=== PATIENT | male | born 1955 | race Caucasian/White ===

== ENCOUNTER → 2019-05-26 10:02 | Outpatient (BNVA) | payer SELFPAY | PROVIDERS: Family Provider Nurse Practitioner; PCP Family Medicine; Visit Provider Family Medicine | DX: G45.9 Transient cerebral ischemic attack, unspecified (principal); N48.9 Disorder of penis, unspecified; E11.9 Type 2 diabetes mellitus without complications; I10 Essential (primary) hypertension; E78.5 Hyperlipidemia, unspecified | CPT/HCPCS: 80053; 80061; 82044; 83036; 83735; 83880; 84484; 85025; 86592; 87491; 87591; 87806 ==

== ENCOUNTER 2019-06-26 07:18 | Outpatient (CLI) | payer SELFPAY ==
--- NOTE | 2019-06-26 | CT_ITS ---
WS: [id number] CT HEAD TECHNIQUE: Noncontrast CT of the head obtained from the skullbase to the vertex. CLINICAL INFORMATION: TIA COMPARISON: None. DLP: 850.[address] scans at [facility] use at least one of these dose optimization techniques: automat ed exposure control; mA and/or kV adjustment per patient size (includes targeted exams where dose is matched to clinical indication); or iterative reconstruction. FINDINGS: No evidence of intracranial hemorrhage or mass effect. Ventricular system and basal cisterns are carvalho nt. Mild small vessel changes with mild parenchymal volume loss. No extra-axial fluid collections. No evidence of mass or mass effect. Normal ware-white differentiation. Partial opacification ethmoid air cells. Mild mucosal thickening in the frontal sinuses. CT/CT head wo con* [id number] IMPRESSION: 1. No evidence of intracranial hemorrhage or mass effect. 2. Mild small vessel changes with mild parenchymal volume loss. 3. No acute intracranial findings.
--- NOTE | 2019-06-26 08:30 | CT_ITS ---
WS: [id number] CTA HEAD AND NECK TECHNIQUE: Contrast enhanced CTA of the head and neck with coronal and sagittal reformatted images an d maximum intensity projection (MIP) images. NASCET criteria utilized. CLINICAL INFORMATION: TIA COMPARISON: None. DLP: 2627.[address] scans at [facility] use at least one of these dose optimization techniques: automat ed exposure control; mA and/or kV adjustment per patient size (includes targeted exams where dose is matched to clinical indication); or iterative reconstruction. FINDINGS: RIGHT: Right common carotid artery is patent. No significant right ICA stenosis. ICA is patent to the skull base. LEFT: Left common carotid artery is patent. No significant left ICA stenosis. Left ICA is patent to t he skull base. Hypoplastic left vertebral artery. Dominant right vertebral artery. INTRACRANIAL CTA: Basilar artery is patent. Normal vascularity to the [employer]ONDE SPECIALIST territory bilaterally. Both ICAs are patent at the skull base. Mild cavernous carotid calcification. Normal vascularity to t he PIETRO and MCA territories bilaterally. No evidence of high-grade proximal stenosis or aneurysm. Norm al visualized thyroid gland. CT/CT angio headneck* [id number] IMPRESSION: 1. No significant ICA stenosis bilaterally. Both ICAs are patent to the skull base. 2. Normal intracranial CTA. No flow-limiting stenosis or aneurysm. 3. Right dominant vertebral artery. Hypoplastic left vertebral artery. 4. No other significant findings.
[2019-06-26] MEDS: iohexol 350 mg/mL 100 mL Btl IV (09:06)
--- NOTE | 2019-06-26 09:30 | USCV_ITS ---
Leonidas Swenson Age: 64 Gender: M : 1955 Exam Date: 06/26/2019 07:38 Ordering Phys: Arslan Wilson MD Technologist: [place] [facility] [place]: TIA BP: / HR: 55 Rhythm: Sinus Technical Quality: Good MEASUREMENTS (Male / Female) Normal Values 2D ECHO LV Diastolic Diameter PLAX 4.0 cm 4.2 - 5.9 / 3.9 - 5.3 cm LV Systolic Diameter PLAX 3.3 cm LV Chamber Size 3.7 cm IVS Diastolic Thickness 1.8 cm 0.6 - 1.0 / 0.6 - 0.9 cm IVS Systolic Thickness 2.2 cm LVPW Diastolic Thickness 1.2 cm 0.6 - 1.0 / 0.6 - 0.9 cm LVPW Systolic Thickness 1.8 cm RV Chamber Size 2.9 cm LVOT Diameter 2.1 cm LV Ejection Fraction 2D Teich 40.3 % LV Ejection Fraction MOD 2C 48.3 % LV Ejection Fraction 2C AL 54.1 % LA Diameter 3.9 cm LA Width 3.5 cm LA Height 5.3 cm RA Width 3.5 cm RA Height 4.8 cm Aorta at Sinotubular Diameter 3.6 cm M-MODE LV Diastolic Diameter MM 4.8 cm 4.2 - 5.9 / 3.9 - 5.3 cm LV Systolic Diameter MM 3.5 cm LV Ejection Fraction MM Teich 54.2 % IVS Diastolic Thickness MM 1.5 cm 0.6 - 1.0 / 0.6 - 0.9 cm IVS Systolic Thickness MM 2.2 cm LVPW Diastolic Thickness MM 1.6 cm 0.6 - 1.0 / 0.6 - 0.9 cm LVPW Systolic Thickness MM 2.5 cm RV Diastolic Diameter MM 3.0 cm Aortic Annulus Diameter 3.9 cm LA Ao Ratio MM 1.0 MV E Point Septal Separation 0.5 cm DOPPLER AV Peak Velocity 125.0 cm/s LVOT Peak Velocity 95.0 cm/s AV Area Cont Eq vti 2.7 cm squared AV Area Cont Eq pk 2.6 cm squared MV Area PHT 4.3 cm squared Mitral E to A Ratio 0.8 MV E' Velocity 8.0 cm/s Mitral E to MV E' Ratio 10.0 Mitral E to LV E' Lateral Ratio 9.9 Mitral E to LV E' Septal Ratio 10.1 TR Peak Velocity 230.6 cm/s TR Peak Gradient 21.3 mmHg TR Mean Velocity 159.8 cm/s TR Mean Gradient 11.7 mmHg TR Velocity Time Integral 83.2 cm Right Atrial Pressure 3.0 mmHg Pulmonary Artery Systolic Pressu 24.3 mmHg PV Peak Velocity 82.0 cm/s RV Acceleration Time 0.1 s RV Ejection Time 0.4 s RV AcT/ET 0.4 FINDINGS Left Ventricle Normal left ventricular size and systolic function, EF 56 %. Mild left ventricular hypertrophy. No regional wall motion abnormalities. Grade I/IV diastolic dysfunction (abnormal relaxation filling pattern), normal to mildly elevated filling pressures. Right Ventricle Normal right ventricular size and systolic function. Right Atrium The right atrium is normal in size. Left Atrium Mildly dilated left atrium Mitral Valve Structurally normal mitral valve without significant stenosis or prolapse. There is no mitral regurgitation. Aortic Valve Minimally thickened Tricuspid Valve Trace tricuspid valve regurgitation. Pulmonic Valve No gross abnormalities noted Pericardium No significant pericardial effusion Aorta Normal aortic annulus size. CONCLUSIONS Normal left ventricular size and systolic function, EF 56 %. Mild left ventricular hypertrophy. No regional wall motion abnormalities. Grade I/IV diastolic dysfunction (abnormal relaxation filling pattern), normal to mildly elevated filling pressures. Mildly dilated left atrium Trace tricuspid valve regurgitation. There is no significant pericardial effusion. There are no intracardiac masses. There are no prior echocardiogram studies to compare. Dr Debbi Salter MD FAC (Electronically Signed) Final Date: 26 June 2019 12:53 S
--- NOTE | 2019-06-26 10:15 | USCV_ITS ---
Leonidas Swenson Age: 64 Gender: M : 1955 Exam Date: 06/26/2019 07:57 Ordering Phys: Arslan Wilson MD Technologist: Tati Beckman Exam Location: [facility] – [place] Indication: TIA Risk Factors: Previous Vascular Surgery: Right Brachial BP: / Left Brachial BP: / Right Left Velocity (cm/s) Spectral Plaque Velocity (cm/s) Spectral Plaque Syst/Diast Broadening Syst/Diast Broadening 109.20/9.90 Prox CCA 119.80/ 21.40 47.50/ 13.90 Mid CCA 48.50 / 14.20 42.20/ 10.70 Distal CCA 37.80 / 10.30 Homo 46.90/ 11.70 Prox ICA 53.10 / 17.30 Homo 42.50/ 13.60 Mid ICA 80.90 / 28.60 49.00/ 15.90 Distal ICA 77.00 / 25.40 101.40 ECA 51.40 1.03 ICA/CCA 1.67 Antegrade Vertebral Antegrade 40.70/ 15.20 cm/s 77.80/ 21.40 cm/s Tri Subclavian Tri 101.2 105.5 0 0 FINDINGS Mild diffuse plaques bilaterally at the bifurcations and proximal internal carotid arteries Intimal thickening in the common carotid arteries bilaterally. Antegrade flow in the vertebral arteries bilaterally. Normal Doppler flow velocities CONCLUSIONS Mild diffuse plaques bilaterally at the bifurcations and proximal internal carotid arteries Intimal thickening in the common carotid arteries bilaterally. No significant stenosis in the extracranial arteries, based on the above findings Dr Debbi Salter MD [facility] (Electronically Signed) Final Date: 26 June 2019 19:33 S
== END 2019-06-26 07:19 | disposition home or self-care (01) ==
LOC: RAD 07:20
PROVIDERS: Family Provider Nurse Practitioner; PCP Family Medicine; Visit Provider Family Medicine
DX: G45.9 Transient cerebral ischemic attack, unspecified (principal); Q27.8 Other specified congenital malformations of peripheral vascular system
CPT/HCPCS: 70450; 70496; 70498; 93306; 93880

== ENCOUNTER 2019-07-25 10:51 | Emergency (ER) | payer SELFPAY ==
--- NOTE | 2019-07-25 10:54 | W.ED.ABDPA2 ---
HPI - Abdominal Pain General: Chief Complaint: Abdominal Pain Stated Complaint: ABD PAIN Time Seen by Provider: 07/25/19 10:53 Source: patient Mode of arrival: ambulatory Limitations: no limitations History of Present Illness: HPI narrative: Patient is a 64-year-old male who presents to ED today with a complaint of right lower abdominal pain over the past 3 days. Patient tells me he believes it might be related to his diabetic medications. He states these medications often make him alternate between episodes of diarrhea and constipation. He does state bowel movements have been fairly normal for him as of recently. He is not having any urinary symptoms. No nausea or vomiting. He has not been running fevers. He complains of some back pain over the past 6 weeks without injury or trauma. He denies any worsening or alleviating factors to his discomfort. States he is able to eat and drink without difficulty. MD elicited complaint: abdominal pain Onset (ago): day(s) Pain Consistency: constant (seems to be worse in the mornings) Location: RLQ Radiation: none Migration to: no migration Exacerbating factors: nothing Relieving factors: nothing Associated Symptoms: Reports constipation and diarrhea; Denies change in stool character, chills, coffee ground emesis, dysuria, fever(s), heartburn, hematochezia, hematemesis, melena, nausea, syncope and vomiting Review of Systems General: Reports: 10 or more systems reviewed and unremarkable except in HPI and below Const: Denies: fever(s), chills, body aches, change in appetite, change in weight, fatigue or malaise Eyes: Denies: change in vision, blurry vision or photophobia ENMT: Denies: throat pain, enlarged tonsils or odynophagia Card: Denies: chest pain, palpitations, irregular heart rhythm, edema, swelling of feet/ankles, lightheadedness, syncope, pre-syncope, dyspnea on exertion, orthopnea or leg pain with exertion Resp: Denies: dyspnea, productive cough, pain on inspiration, hemoptysis or chest congestion GI: Reports: abdominal pain, diarrhea and constipation; Denies: nausea, vomiting, hematemesis, coffee ground emesis, heartburn, early satiety, rectal swelling, change in stool character, hematochezia, melena, white/light colored stool or steatorrhea : Denies: flank pain, difficulty urinating, dysuria, urinary frequency or urinary urgency Musc: Reports: back pain; Denies: neck pain, extremity pain, extremity swelling, joint pain, joint swelling, joint redness or joint warmth Skin/Breast: Denies: rash Neuro: Denies: headache(s), numbness in extremities, weakness in extremities or sensory changes PFS ED PFSH: Social History (Updated 05/26/19 @ 08:46 by Monalisa Chu LPN) Smoking and tobacco status: never smoked Alcohol intake: never Physical Exam Const: COMMON NORMALS: no acute distress, patient oriented x3, no limitations and alert HENMT: COMMON NORMALS: normocephalic and atraumatic HEAD & SCALP: normocephalic and atraumatic Neck/C-Spine: COMMON NORMALS: full ROM and no lymphadenopathy GENERAL: No anterior neck swelling CERVICAL SPINE: Yes cervical ROM normal, No pain with cervical ROM, No Cervical spine tenderness and No Paracervical muscle tenderness Chest: COMMONS NORMALS: normal inspection of the chest and normal palpation of entire chest wall Resp: COMMON NORMALS: normal respiratory effort and clear to auscultation bilaterally AUSCULTATION: clear to auscultation bilaterally Cardio: COMMON NORMALS: regular rate and regular rhythm RATE: regular rate RHYTHM: regular rhythm GI: COMMON NORMALS: Normal to inspection, nondistended, normoactive bowel sounds present, Soft to palpation, No hepatosplenomegaly present and no masses PALPATION: Yes Soft to palpation, Yes Tenderness to palpation present (GI) (mild RLQ) and Yes No hepatosplenomegaly present : COMMON NORMALS: Yes no CVA tenderness BLADDER/KIDNEY EXAM: Yes no CVA tenderness Back/Pelvis: COMMON NORMALS: no CVA tenderness, thoracic and lumbar spine normal to inspection, no thoracic nor lumbar tenderness, thoraco-lumbar ROM normal and straight leg raise negative bilaterally Extremity: COMMON NORMALS: normal to inspection and full ROM GENERAL: Yes normal exam except as noted Neuro: COMMON NORMALS: patient oriented x3 SENSORIUM/ORIENTATION: Yes alert Skin: COMMON NORMALS: no rashes or lesions noted GENERAL SKIN EXAM: no rashes or lesions noted Course Vital Signs: Vital signs: Vital Signs Temperature 98.1 F 07/25/19 10:55 Pulse Rate 57 L 07/25/19 14:49 Respiratory Rate 20 H 07/25/19 14:49 Blood Pressure 132/90 07/25/19 14:49 Pulse Oximetry 100 07/25/19 14:49 MDM - Abdominal Pain MDM Narrative: Medical decision making narrative: Patient with abnormality to his pancreas on his CT scan. Patient will need further follow-up for this with an MRI or triphasic CT scan to rule out malignancy. Patient was made aware of findings and case management will be involved to get patient prompt follow-up with his PCP. Return to ED precautions given. Lab Data: Labs: Lab Results 07/25/19 07/25/19 07/25/19 Range/Units 11:12 11:12 12:05 WBC 3.8 L (4.0-10.0) 10^3/ uL RBC 4.91 (4.1-5.3) 10^6/u L Hgb 14.5 (11.7-16.6) g/dL Hct 43.3 (42.0-52.0) % MCV 88.2 (80-94) fL MCH 29.5 (28.0-34.0) pg MCHC 33.5 (30.0-36.0) g/dL RDW 11.7 L (12.1-15.1) % Plt Count 181 (130-400) 10^3/c mm MPV 9.8 (7.4-10.4) fL Neut % (Auto) 60.9 % Lymph % (Auto) 21.7 % [place] % (Auto) 7.6 % Eos % (Auto) 7.9 % Baso % (Auto) 1.6 % Neut # (Auto) 2.3 (1.8-7.7) 10^3/u L Lymph # (Auto) 0.8 (0.8-4.8) 10^3/u L [place] # (Auto) 0.3 (0.2-0.9) 10^3/u L Eos # (Auto) 0.3 (0.0-0.8) 10^3/u L Baso # (Auto) 0.1 (0.0-0.1) 10^3/u L Nucleated RBC % (a uto) 0 % Nucleated RBCs # 0.0 /100WBC Sodium 140 (136-145) mmol/L Potassium 4.1 (3.5-5.1) mmol/L Chloride 102 (98-107) mmol/L Carbon Dioxide 26 (22-29) mmol/L Anion Gap 16.1 (5-19) BUN 8 (8-23) mg/dL Creatinine 1.0 (0.7-1.2) mg/dL GFR Calculation 75.5 L (90-130) mL/min Glucose 192 H (65-115) mg/dL Calculated Osmolal ity 291 (285-295) mOsm/k g Calcium 10.7 H (8.5-10.5) mg/dL Total Bilirubin 0.5 (0.15-1.2) mg/dL AST 21 (0-40) U/L ALT 38 (0-41) U/L Alkaline Phosphata se 83 (40-130) IU/L Total Protein 8.0 (6.6-8.7) g/dL Albumin 4.6 (3.5-5.2) g/dL Globulin 3.4 (1.3-4.6) g/dL Lipase 18 (13-60) U/L Urine Color Yellow (Yellow) Urine Appearance Clear (CLEAR) Urine pH 5 (5-7) Ur Specific Gravit y 1.020 (1.005-1.030) Urine Protein Neg (Negative) Urine Glucose (UA) Norm (Normal) Urine Ketones Negative (Negative) Urine Blood Neg (Negative) Urine Nitrate Negative (Negative) Urine Bilirubin Neg (NEGATIVE) Urine Urobilinogen Norm (Negative) mg/dL Ur Leukocyte Pina ase Negative (Negative) Imaging Data ^: CT Abd/Pel: Radiologist's impression: [place] [address] CT Scan Report Signed with Addenda Patient: Leonidas Swenson Unit #: [id number] : 1955 Age/Sex: 64 / M ADM Date: 07/25/19 Loc: ER Room/Bed: Attending Dr: Ordering Provider/Ordering MD: Zaina Watkins Date of Service: 07/25/19 Procedure(s): CT abdomen pelvis w con* [id number] Accession Number(s): [id number] Report Number: [id number]/CT abdomen pelvis w con* [id number] Addendum created at 2:[address] findings discussed with [employer] Zaina Watkins via phone conference at 1:38 p.m.. Findings were understood and acknowledged. Radiation Dose CTDIVOL = (mGy): DLP = 1759.1 (mGy-cm) Addendum Dictated By: Luis Felipe Mathews MD Addendum Signed By: Luis Felipe Mathews MD Signed Date/Time: 1433 Addendum Cosigned By: PROCEDURE INFORMATION: Exam: CT Abdomen And Pelvis With Contrast Exam date and time: 07/25/2019 12:17 PM Age: 64 years old Clinical indication: Abdominal pain; Flank; Right lower quadrant (rlq); Prior surgery; Surgery type: Hernia; Additional info: Rlq pain/back pain TECHNIQUE: Imaging protocol: Computed tomography of the abdomen and pelvis with intravenous contrast. Radiation optimization: All CT scans at this facility use at least one of these dose optimization techniques: automated exposure control; mA and/or kV adjustment per patient size (includes targeted exams where dose is matched to clinical indication); or iterative reconstruction. Contrast material: OMNI; Contrast volume: 95 ml; Contrast route: IV; COMPARISON: No relevant prior studies available. RADIATION DOSE METRICS: Total DLP: 1759.1 mGy-cm FINDINGS: Liver: Small 5 mm rounded low-density area superior aspect of left hepatic lobe, possible small cyst. 7 mm hypodense area periphery of right hepatic lobe, too small to characterize. Gallbladder and bile ducts: Normal. No calcified stones. No ductal dilation. Pancreas: Pancreatic tail either absent or very atrophic and clinical correlation is requested. Pancreatic body mildly hypodense, nonspecific. Appearance nonspecific and could be due to chronic scarring versus subtle infiltrating tumor. Spleen: Normal. No splenomegaly. Adrenals: Normal. No mass. Kidneys and ureters: Normal. No hydronephrosis. Stomach and bowel: Unremarkable. No obstruction. No mucosal thickening. Appendix: No evidence of appendicitis. Intraperitoneal space: Unremarkable. No free air. No significant fluid collection. 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 Lymph nodes: Prominent 2 x 1.4 cm peripancreatic lymph node as well as prominent retroperitoneal para-aortic lymph nodes (series 2, axial image 23 and 35). Bladder: 4 cm left-sided bladder diverticulum. Reproductive: Mildly enlarged prostate. Bones/joints: L5-S1 degenerative disc disease, chronic. Soft tissues: 2 cm uncomplicated fat containing left inguinal hernia. Soft tissue density right inguinal region, possible postoperative scarring. CT/CT abdomen pelvis w con* [id number] IMPRESSION: 1.) Pancreatic tail either absent or very atrophic and clinical correlation is requested. Pancreatic body mildly hypodense, nonspecific. Appearance nonspecific and could be due to chronic scarring versus subtle infiltrating tumor. 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 Dedicated triphasic CT of pancreas or pancreatic MRI could further evaluate as clinically indicated. 2.) Prominent lymph nodes as described above. 3.) 4 cm left-sided bladder diverticulum. Fat containing left inguinal hernia. Radiation Dose CTDIVOL = (mGy): DLP = 1759.1 (mGy-cm) Dictated By: Luis Felipe Mathews MD Signed By: Luis Felipe Mathews MD Signed Date/Time: 07/25/191431 DD/ 143 Discharge Plan Discharge Patient Disposition: Home, Self-Care Clinical Impression: Pancreatic abnormality Abdominal pain Qualifiers: Abdominal location: right lower quadrant Qualified Code(s): R10.31 - Right lower quadrant pain Back pain Qualifiers: Back pain location: thoracic back pain Chronicity: acute Back pain laterality: bilateral Qualified Code(s): M54.6 - Pain in thoracic spine Condition: Stable Prescriptions: New hydrocodone-acetaminophen 5-325 mg tablet 1 tab PO Q6H PRN (Reason: pain) Qty: 14 RF: 0 No Action omega-3 fatty acids 1,000 mg capsule 1,000 mg PO DAILY RF: 0 Hold Instructions: Cannot Afford Medication Complete Multivitamin Tablet 1 tab PO DAILY RF: 0 Hold Instructions: Cannot Afford Medication sildenafil 25 mg tablet 20 mg PO DAILY PRN (Reason: Sexual Activity) RF: 0 metformin 1,000 mg tablet 1,000 mg PO BID 90 Days Qty: 180 RF: 0 aspirin 81 mg tablet,delayed release (DR/EC) 81 mg PO DAILY 90 Days Qty: 90 RF: 0 atorvastatin 80 mg tablet 80 mg PO DAILY 90 Days Qty: 90 RF: 0 lisinopril 5 mg tablet 5 mg PO DAILY 90 Days Qty: 90 RF: 0 glipizide 5 mg tablet extended release 24hr 5 mg PO DAILY 90 Days Qty: 90 RF: 0 Discharge Orders: Discharge Order (Routine); Ordered 07/25/19 Ordered By: Zaina Watkins Patient Instructions: Abdominal Pain (ED) Activity Restrictions/Additional Instructions: As discussed on your CT scan the radiologist found some abnormalities regarding your pancreas. I am going to have case management get a hold of you early next week to set you up with an appointment with primary care so that they may order an MRI or a triphasic CT of your pancreas for further evaluation. You may return to the emergency department over the weekend for any other concerns you may have or worsening symptoms. Discharge Date/Time: 07/25/19 14:52 Coding Level of Care Code ED [employer] Exam Comprehensive
[2019-07-25 10:55] VITALS: BP 146/83; PULSE 68; RESP 16; TEMP 36.7; O2SAT 98; BMI 30.4
--- NOTE | 2019-07-25 11:07 | CTR_ITS ---
PROCEDURE INFORMATION: Exam: CT Abdomen And Pelvis With Contrast Exam date and time: 07/25/2019 12:17 PM Age: 64 years old Clinical indication: Abdominal pain; Flank; Right lower quadrant (rlq); Prior surgery; Surgery type: Hernia; Additional info: Rlq pain/back pain TECHNIQUE: Imaging protocol: Computed tomography of the abdomen and pelvis with intravenous contrast. Radiation optimization: All CT scans at this facility use at least one of these dose optimization techniques: automated exposure control; mA and/or kV adjustment per patient size (includes targeted exams where dose is matched to clinical indication); or iterative reconstruction. Contrast material: OMNI; Contrast volume: 95 ml; Contrast route: IV; COMPARISON: No relevant prior studies available. RADIATION DOSE METRICS: Total DLP: 1759.1 mGy-cm FINDINGS: Liver: Small 5 mm rounded low-density area superior aspect of left hepatic lobe, possible small cyst. 7 mm hypodense area periphery of right hepatic lobe, too small to characterize. Gallbladder and bile ducts: Normal. No calcified stones. No ductal dilation. Pancreas: Pancreatic tail either absent or very atrophic and clinical correlation is requested. Pancreatic body mildly hypodense, nonspecific. Appearance nonspecific and could be due to chronic scarring versus subtle infiltrating tumor. Spleen: Normal. No splenomegaly. Adrenals: Normal. No mass. Kidneys and ureters: Normal. No hydronephrosis. Stomach and bowel: Unremarkable. No obstruction. No mucosal thickening. Appendix: No evidence of appendicitis. Intraperitoneal space: Unremarkable. No free air. No significant fluid collection. 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 Lymph nodes: Prominent 2 x 1.4 cm peripancreatic lymph node as well as prominent retroperitoneal para-aortic lymph nodes (series 2, axial image 23 and 35). Bladder: 4 cm left-sided bladder diverticulum. Reproductive: Mildly enlarged prostate. Bones/joints: L5-S1 degenerative disc disease, chronic. Soft tissues: 2 cm uncomplicated fat containing left inguinal hernia. Soft tissue density right inguinal region, possible postoperative scarring. CT/CT abdomen pelvis w con* [id number] IMPRESSION: 1.) Pancreatic tail either absent or very atrophic and clinical correlation is requested. Pancreatic body mildly hypodense, nonspecific. Appearance nonspecific and could be due to chronic scarring versus subtle infiltrating tumor. 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 Dedicated triphasic CT of pancreas or pancreatic MRI could further evaluate as clinically indicated. 2.) Prominent lymph nodes as described above. 3.) 4 cm left-sided bladder diverticulum. Fat containing left inguinal hernia. Radiation Dose CTDIVOL = (mGy): DLP = 1759.1 (mGy-cm)
[2019-07-25 11:18] LABS: Basophils # 0.1 10^3/uL (0.0-0.1); Basophils % 1.6 %; Eosinophils # 0.3 10^3/uL (0.0-0.8); Eosinophils % 7.9 %; Hematocrit 43.3 % (42.0-52.0); Hemoglobin 14.5 g/dL (11.7-16.6); Lymphocytes # 0.8 10^3/uL (0.8-4.8); Lymphocytes % 21.7 %; Mean Corpuscular HGB Conc 33.5 g/dL (30.0-36.0); Mean Corpuscular Hemoglobin 29.5 pg (28.0-34.0); Mean Corpuscular Volume 88.2 fL (80-94); Mean Platelet Volume 9.8 fL (7.4-10.4); Monocytes # 0.3 10^3/uL (0.2-0.9); Monocytes % 7.6 %; Neutrophils # 2.3 10^3/uL (1.8-7.7); Neutrophils % 60.9 %; Nucleated Red Blood Cells % 0 %; Platelet Count 181 10^3/cmm (130-400); Red Blood Count 4.91 10^6/uL (4.1-5.3); Red Cell Distribution Width 11.7 % (12.1-15.1); White Blood Count 3.8 10^3/uL (4.0-10.0)
[2019-07-25 11:45] LABS: Alanine Aminotransferase 38 U/L (0-41); Albumin Level 4.6 g/dL (3.5-5.2); Alkaline Phosphatase 83 IU/L (40-130); Anion Gap 16.1 (5-19); Aspartate Amino Transferase 21 U/L (0-40); Blood Urea Nitrogen 8 mg/dL (8-23); Calcium 10.7 mg/dL (8.5-10.5); Carbon Dioxide 26 mmol/L (22-29); Chloride 102 mmol/L (98-107); Globulin 3.4 g/dL (1.3-4.6); Glomerular Filtration Rate 75.5 mL/min (90-130); Glucose 192 mg/dL (65-115); Lipase 18 U/L (13-60); Osmolality Calculated 291 mOsm/kg (285-295); Potassium 4.1 mmol/L (3.5-5.1); Sodium 140 mmol/L (136-145); Total Bilirubin 0.5 mg/dL (0.15-1.2)
[2019-07-25 12:11] LABS: Add Urine Microscopic? NO
[2019-07-25 12:15] LABS: Bilirubin Urine Neg (NEGATIVE); Blood Urine Neg (Negative); Glucose Urine UA Norm (Normal); Ketones Urine Negative (Negative); Leukocyte Esterase Urine Negative (Negative); Nitrate Urine Negative (Negative); Protein Urine Neg (Negative); Urine Appearance Clear (CLEAR); Urine Color Yellow (Yellow); Urobilinogen Urine Norm (Negative); pH Urine 5 (5-7)
[2019-07-25] MEDS: iohexol 300 mg/mL 100 mL Btl IV (12:32)
[2019-07-25 14:49] VITALS: BP 132/90; PULSE 57; RESP 20; O2SAT 100
--- NOTE | 2019-07-28 13:50 | DCPLANNER ---
airborne weapons technical manager had message to speak with patient about getting established with a primary care physician. airborne weapons technical manager spoke with patient, he stated that he has seen Dr. Wilson in the past. airborne weapons technical manager [place] [facility] [place] Archana, was told that Dr. Wilson had been furloughed from the clinic, and were being referred to Dr. Medina. airborne weapons technical manager called patient, informed patient of this, wrapper caser offered to schedule a follow up appointment for patient with Dr. Medina, but patient stated that he would see if Dr. Beck would accept him as a patient. airborne weapons technical manager told patient that he would need to go [facility] and fill out the paperwork to see if Dr. Beck would accept patient or not. Patient stated that when he got back into town he would go by the clinic.
== END 2019-07-25 14:52 | disposition home or self-care (01) ==
PROVIDERS: Emergency Provider Physician Assistant
DX: K86.89 Other specified diseases of pancreas (principal); R10.31 Right lower quadrant pain; M54.6 Pain in thoracic spine; Z79.82 Long term (current) use of aspirin; Z79.84 Long term (current) use of oral hypoglycemic drugs
CPT/HCPCS: 12345; 74177; 80053; 81003; 83690; 85025; 99282; 99283; Q9967

== ENCOUNTER 2019-08-06 08:51 | Emergency (ER) | payer MEDICAID, SELFPAY ==
[2019-08-06 08:53] VITALS: BMI 30.3
[2019-08-06 08:58] VITALS: BP 165/93; PULSE 59; RESP 16; TEMP 36.7; O2SAT 98
--- NOTE | 2019-08-06 08:58 | ED_ITS ---
HPI - Abdominal Pain General: Chief Complaint: Abdominal Pain Stated Complaint: ABD PAIN Time Seen by Provider: 08/06/19 08:58 Source: patient Mode of arrival: ambulatory Limitations: no limitations History of Present Illness: HPI narrative: Patient comes in today for complaints of abdominal pain and back pain. Patient states for the last 2 months he has had back pain. Patient now for the last 2 weeks has had increasing abdominal pain. Patient is finding it harder and harder to work due to his pain and discomfort. Patient appears well. Patient appears in mild to no pain at rest. Patient states that he has relief from his back pain when he is lying flat on the floor. Patient is concerned about pancreatic cancer and finding relief for his pain. Review of Systems General: Reports: 10 or more systems reviewed and unremarkable except in HPI and below GI: Reports: abdominal pain Musc: Reports: back pain PFS ED PFSH: Medical History (Updated 08/06/19 @ 14:09 by JOSHUA Abrams) History of inguinal hernia Surgical History (Updated 08/04/19 @ 14:58 by Glo Medina DO) History of inguinal hernia repair History of vasectomy Social History Smoking and tobacco status: never smoked Alcohol intake: current Alcohol intake frequency: holidays/special occasions only Physical Exam Const: COMMON NORMALS: no acute distress and patient oriented x3 GENERAL APPEARANCE: cooperative HENMT: COMMON NORMALS: normocephalic and Normal external nose present HEAD & SCALP: normal to inspection and normocephalic NOSE: Normal external nose present MOUTH: Normal oral and palatal mucosa present THROAT: posterior oropharynx normal Eye: GENERAL EYE: appearance normal, both eyes and all related structures Neck/C-Spine: COMMON NORMALS: full ROM Lymph: LYMPHATIC: no lymphadenopathy noted Chest: COMMONS NORMALS: normal inspection of the chest Resp: COMMON NORMALS: normal respiratory effort EFFORT & INSPECTION: Yes able to speak in complete sentences Cardio: COMMON NORMALS: regular rate and regular rhythm RATE: regular rate RHYTHM: regular rhythm GI: COMMON NORMALS: Soft to palpation AUSCULTATION: Yes normoactive bowel sounds PALPATION: Yes Soft to palpation, Yes Tenderness to palpation present (GI) and No Guarding due to palpation present (GI) : COMMON NORMALS: Yes no CVA tenderness BLADDER/KIDNEY EXAM: Yes no CVA tenderness Back/Pelvis: COMMON NORMALS: no CVA tenderness THORACIC SPINE/UPPER BACK: Yes paraspinal muscle tenderness LUMBAR SPINE/LOWER BACK: Yes paraspinal muscle tenderness Extremity: COMMON NORMALS: normal to inspection Neuro: COMMON NORMALS: patient oriented x3 and moves all extremities Psych: COMMON NORMALS: mental status grossly normal and cooperative Skin: COMMON NORMALS: no rashes or lesions noted GENERAL SKIN EXAM: no rashes or lesions noted Course Vital Signs: Vital signs: Vital Signs Temperature 98.0 F 08/06/19 08:58 Pulse Rate 59 L 08/06/19 08:58 Respiratory Rate 16 08/06/19 08:58 Blood Pressure 165/93 08/06/19 08:58 Pulse Oximetry 98 08/06/19 08:58 MDM - Abdominal Pain MDM Narrative: Medical decision making narrative: Patient comes in today for complaints of abdominal pain and back pain. Patient was seen by Dr. Medina yesterday and was given diclofenac and baclofen for his back pain. At that time patient was unable to get MRI ordered due to inability to pay for imaging services. Patient went to Medicare Medicaid for assistance but states that he was unable to get any help due to offices being closed. Patient reports that his pain seems worse and he does not know what to do. On exam patient appears in mild pain. Respirations are even lungs are clear to auscultation. Patient has some mild generalized abdominal tenderness. Bowel sounds are present throughout. Skin is warm and dry. Differential diagnosis includes gastroesophageal reflux disease, peptic ulcer disease, pancreatitis, pancreatic cancer, diverticulitis, intervertebral disc disease, facet arthropathy. Laboratory values were insignificant and definitely unchanged from previous exam a week ago. Ordered MRI MRCP, it showed no pancreatic tumor and abnormality appears to be chronic scarring versus a normal variant. Reviewed exam with patient recommended better glucose control, discussed medications to use for back pain. Also discussed his gastric varices and monitoring for GI bleeding. Recommended a trial of Reglan to see if that would help with his abdominal pain which I think may be due to gastroparesis due to diabetes. Patient was agreeing to try the prescription with recommendations for follow-up with primary care. Patient also understands return to the ER for worsening signs and symptoms. Lab Data: Labs: Lab Results 08/06/19 08/06/19 Range/Units 09:44 09:44 WBC 4.6 (4.0-10.0) 10^3/ uL RBC 4.81 (4.1-5.3) 10^6/u L Hgb 14.0 (11.7-16.6) g/dL Hct 42.8 (42.0-52.0) % MCV 89.0 (80-94) fL MCH 29.1 (28.0-34.0) pg MCHC 32.7 (30.0-36.0) g/dL RDW 11.9 L (12.1-15.1) % Plt Count 186 (130-400) 10^3/c mm MPV 9.6 (7.4-10.4) fL Neut % (Auto) 68.9 % Lymph % (Auto) 17.7 % [place] % (Auto) 6.9 % Eos % (Auto) 5.4 % Baso % (Auto) 1.1 % Neut # (Auto) 3.2 (1.8-7.7) 10^3/u L Lymph # (Auto) 0.8 (0.8-4.8) 10^3/u L [place] # (Auto) 0.3 (0.2-0.9) 10^3/u L Eos # (Auto) 0.3 (0.0-0.8) 10^3/u L Baso # (Auto) 0.1 (0.0-0.1) 10^3/u L Nucleated RBC % (a uto) 0 % Nucleated RBCs # 0.0 /100WBC Sodium 140 (136-145) mmol/L Potassium 4.3 (3.5-5.1) mmol/L Chloride 102 (98-107) mmol/L Carbon Dioxide 27 (22-29) mmol/L Anion Gap 15.3 (5-19) BUN 17 (8-23) mg/dL Creatinine 1.0 (0.7-1.2) mg/dL GFR Calculation 75.5 L (90-130) mL/min Glucose 176 H (65-115) mg/dL Calculated Osmolal ity 291 (285-295) mOsm/k g Calcium 10.1 (8.5-10.5) mg/dL Total Bilirubin 0.6 (0.15-1.2) mg/dL AST 15 (0-40) U/L ALT 25 (0-41) U/L Alkaline Phosphata se 82 (40-130) IU/L Total Protein 7.4 (6.6-8.7) g/dL Albumin 4.6 (3.5-5.2) g/dL Globulin 2.8 (1.3-4.6) g/dL Lipase 19 (13-60) U/L Discharge Plan Discharge Patient Disposition: Home, Self-Care Clinical Impression: Gastric varices without bleeding, Diabetic gastroparesis, Degeneration, intervertebral disc, lumbar Abdominal pain Qualifiers: Abdominal location: generalized Qualified Code(s): R10.84 - Generalized abdominal pain Condition: Stable Prescriptions: New metoclopramide HCl 10 mg tablet 10 mg PO BID Qty: 60 RF: 0 No Action sildenafil 25 mg tablet 20 mg PO PRN PRN (Reason: Sexual Activity) RF: 0 aspirin 81 mg tablet,delayed release (DR/EC) 81 mg PO DAILY 90 Days Qty: 90 RF: 0 atorvastatin 80 mg tablet 80 mg PO DAILY 90 Days Qty: 90 RF: 0 lisinopril 5 mg tablet 5 mg PO DAILY 90 Days Qty: 90 RF: 0 Januvia 100 mg tablet 100 mg PO DAILY Qty: 30 RF: 0 glipizide 5 mg tablet extended release 24hr 5 mg PO DAILY 90 Days Qty: 90 RF: 0 metformin 1,000 mg tablet 1,000 mg PO BID 90 Days Qty: 180 RF: 0 diclofenac sodium 75 mg tablet,delayed release (DR/EC) 75 mg PO BID Qty: 60 RF: 0 Multiple Vitamins Tablet 1 tab PO DAILY RF: 0 Cinnamon 500 mg Capsule 500 mg PO DAILY RF: 0 Fish Oil 1 cap PO DAILY RF: 0 baclofen 10 mg tablet 10 mg PO BEDTIME RF: 0 Discharge Orders: Discharge Order (Routine); Ordered 08/06/19 Ordered By: Ever Gillespie Referrals: Glo Medina DO [Primary Care Provider] - Discharge Diet: Advance as tolerated Discharge Activity: Increase activity as tolerated Patient Instructions: Abdominal Pain (ED) Activity Restrictions/Additional Instructions: Healthy diet. Drink plenty of water. Monitor the amount of carbohydrates you consume daily. Try not to eat more than 150 g of carbohydrates a day. Take medications as directed. Use acetaminophen for further pain relief. Follow-up with primary care in 2 weeks as needed. Return to the ER for worsening symptoms, blood in stool or vomit, or high fever. 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
--- NOTE | 2019-08-06 09:08 | XR_ITS ---
WS: [id number] XR lumbar spine 2-3V* [id number] REASON FOR EXAM: back pain FINDINGS: The sacroiliac joints were normal. The lamina, pedicles, spinous processes are all normal as well as the transverse processes. There is settling of the disc space L5-S1 with spurring posteriorly. This suggests low-grade spinal s tenosis. There is degenerate spurring off the anterior vertebral bodies L2-L4. XR/XR lumbar spine 2-3V* [id number] IMPRESSION: Degenerated disc changes L5-S1 Suspect low-grade spinal stenosis L5-S1 There is mild osteoarthritic changes.
--- NOTE | 2019-08-06 09:08 | XR_ITS ---
WS: [id number] XR thoracic spine 3V* [id number] REASON FOR EXAM: pain FINDINGS: The lamina, pedicle, spinous processes are normal. A mild scoliotic curve convex to the right. There is degenerate spurring in the mid thoracic area. There is no definite compression fractures or displacements noted. XR/XR thoracic spine 3V* [id number] IMPRESSION: Scoliotic curve convex to the right Mild osteoarthritic changes
[2019-08-06] MEDS: TRAMadol 50 mg Tablet 100 MG PO (09:40)
[2019-08-06 09:53] LABS: Basophils # 0.1 10^3/uL (0.0-0.1); Basophils % 1.1 %; Eosinophils # 0.3 10^3/uL (0.0-0.8); Eosinophils % 5.4 %; Hematocrit 42.8 % (42.0-52.0); Lymphocytes # 0.8 10^3/uL (0.8-4.8); Lymphocytes % 17.7 %; Mean Corpuscular HGB Conc 32.7 g/dL (30.0-36.0); Mean Corpuscular Hemoglobin 29.1 pg (28.0-34.0); Mean Platelet Volume 9.6 fL (7.4-10.4); Monocytes # 0.3 10^3/uL (0.2-0.9); Monocytes % 6.9 %; Neutrophils # 3.2 10^3/uL (1.8-7.7); Neutrophils % 68.9 %; Nucleated Red Blood Cells % 0 %; Platelet Count 186 10^3/cmm (130-400); Red Blood Count 4.81 10^6/uL (4.1-5.3); Red Cell Distribution Width 11.9 % (12.1-15.1); White Blood Count 4.6 10^3/uL (4.0-10.0)
[2019-08-06 10:06] LABS: Alanine Aminotransferase 25 U/L (0-41); Albumin Level 4.6 g/dL (3.5-5.2); Alkaline Phosphatase 82 IU/L (40-130); Anion Gap 15.3 (5-19); Aspartate Amino Transferase 15 U/L (0-40); Blood Urea Nitrogen 17 mg/dL (8-23); Calcium 10.1 mg/dL (8.5-10.5); Carbon Dioxide 27 mmol/L (22-29); Chloride 102 mmol/L (98-107); Globulin 2.8 g/dL (1.3-4.6); Glomerular Filtration Rate 75.5 mL/min (90-130); Glucose 176 mg/dL (65-115); Lipase 19 U/L (13-60); Osmolality Calculated 291 mOsm/kg (285-295); Potassium 4.3 mmol/L (3.5-5.1); Sodium 140 mmol/L (136-145); Total Bilirubin 0.6 mg/dL (0.15-1.2); Total Protein 7.4 g/dL (6.6-8.7)
--- NOTE | 2019-08-06 11:30 | MR_ITS ---
WS: [id number] MRCP (MAGNETIC RESONANCE CHOLANGIOPANCREATOGRAPHY) HISTORY: pancreatic abnormality, increased abdominal pain COMPARISON: CT abdomen 07/25/2019. TECHNIQUE: Multiple sequences are performed to evaluate the intra and extrahepatic ducts. Signal within the pancreas is normal on all sequences of the MRI. There is mild truncation of the bonilla creatic tail. Very slight thickening of the pancreatic body but this signal remains normal. No duct d ilatation. Common bile duct is also normal throughout its course. Gallbladder is well distended with no intraluminal filling defect. No adjacent pancreatic fluid or evidence for pancreatitis. There is n o ascites. No pleural effusions. No adrenal mass. Moderate distention of the stomach with fluid and food products. There are several varicosities adjac ent to the infrarenal aorta. 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 MR/MR MRCP [id number] IMPRESSION: 1. Normal signal within the pancreas. No duct dilatation. Mildly truncated dis cachorro pancreas. This is likely a normal variant. 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 2. Negative gallbladder. 3. No bile duct dilatation. 4. Gastric varices.
[2019-08-06 14:26] VITALS: BP 156/87; PULSE 60; RESP 16; O2SAT 96
== END 2019-08-06 14:27 | disposition home or self-care (01) ==
PROVIDERS: Emergency Provider Nurse Practitioner Family; PCP Family Medicine
DX: R10.84 Generalized abdominal pain (principal); I86.4 Gastric varices; E11.43 Type 2 diabetes mellitus with diabetic autonomic (poly)neuropathy; K31.84 Gastroparesis; M51.36 Other intervertebral disc degeneration, lumbar region; Z79.82 Long term (current) use of aspirin; Z79.84 Long term (current) use of oral hypoglycemic drugs
CPT/HCPCS: 12345; 36415; 72072; 72100; 74181; 80053; 83690; 85025; 99281; 99283

== ENCOUNTER 2019-08-17 07:59 | Emergency (ER) | payer MEDICAID, SELFPAY ==
[2019-08-17 08:13] VITALS: BP 136/84; PULSE 66; RESP 18; TEMP 36.9; O2SAT 92; BMI 29.6
--- NOTE | 2019-08-17 08:52 | ED_ITS ---
HPI - Abdominal Pain General: Chief Complaint: Abdominal Pain Stated Complaint: LOWER BACK AND ABD PAIN Time Seen by Provider: 08/17/19 08:13 History of Present Illness: HPI narrative: Patient is a 64-year-old male comes to the ED with back and abdominal pain. Patient has been seen here in the ED for same complaint twice in the last month. Abdominal pain started within the last 3 weeks. Abdominal pain is described as cramping all throughout his abdomen. He rates it a 10 out of 10. He says he has a loss of appetite and feels nauseous. Endorses some constipation week. Denies any emesis. Patient says that his back pain started probably about 8 weeks ago. Sitting makes back pain worse. Patient takes diclofenac and baclofen to help with back pain. Denies any acute injury, pain radiating down lower extremities or numbness and tingling to extremities or bladder/bowel incontinence. Patient does say that there are some occasions where he feels like he really has to urinate and when he does a smaller amount of urine that expected comes out. He also describes some minor discomfort when he urinates. Denies any fever or chest pain. Associated Symptoms: Reports constipation and nausea; Denies chills, diarrhea, dysuria, fever(s), hematochezia, hematuria and vomiting Review of Systems Const: Denies: fever(s), chills or fatigue Eyes: Denies: change in vision or eye discomfort ENMT: Denies: throat pain, odynophagia, nasal discharge or nasal congestion Card: Denies: chest pain, palpitations, edema, swelling of feet/ankles, dyspnea on exertion or orthopnea Resp: Denies: dyspnea, productive cough or non-productive cough GI: Reports: abdominal pain, nausea and constipation; Denies: vomiting, diarrhea or hematochezia : Reports: urinary urgency (Patient says he feels like he will have to urinate and then when he does not as much comes out as he thinks); Denies: flank pain, difficulty urinating, dysuria or hematuria Musc: Denies: neck pain, back pain or extremity swelling Skin/Breast: Denies: rash or new lesions Neuro: Denies: headache(s), numbness in extremities or weakness in extremities [facility] ED PFSH: Medical History History of inguinal hernia Surgical History History of inguinal hernia repair History of vasectomy Social History Smoking and tobacco status: never smoked Alcohol intake: current Alcohol intake frequency: holidays/special occasions only Physical Exam Const: COMMON NORMALS: no acute distress, patient oriented x3 and alert GENERAL APPEARANCE: cooperative and comfortable HENMT: COMMON NORMALS: normocephalic HEAD & SCALP: normocephalic MOUTH: Normal oral and palatal mucosa present THROAT: posterior oropharynx normal and uvula midline Eye: COMMON NORMALS: Equal, round and reactive pupils present PUPIL: Yes Equal, round and reactive pupils present Neck/C-Spine: COMMON NORMALS: supple GENERAL: Yes normal visual inspection Resp: COMMON NORMALS: normal respiratory effort, No retractions, No use of accessory muscles and clear to auscultation bilaterally AUSCULTATION: clear to auscultation bilaterally Cardio: COMMON NORMALS: regular rate, regular rhythm, S1 normal heart sound present, S2 normal heart sound present, No gallops present (Cardio), No clicks present (Cardio), No murmurs present (Cardio) and Peripheral pulses 2+ throughout RATE: regular rate RHYTHM: regular rhythm HEART SOUNDS: S1 normal heart sound present and S2 normal heart sound present PERIPHERAL PULSES: Peripheral pulses 2+ throughout GI: COMMON NORMALS: Normal to inspection, nondistended, normoactive bowel chepe nds present, Soft to palpation, non-tender (Patient reported no tenderness as I palpated throughout his abdomen.) and no masses PALPATION: Yes Soft to palpation : COMMON NORMALS: Yes no CVA tenderness BLADDER/KIDNEY EXAM: Yes no CVA tenderness Back/Pelvis: COMMON NORMALS: no CVA tenderness LUMBAR SPINE/LOWER BACK: Yes normal to inspection (Patient had no lumbar spine or repair spinal muscle tenderness upon palpation.), No lumbar spinal tenderness and No paraspinal muscle tenderness Extremity: COMMON NORMALS: normal to inspection and no pedal edema Neuro: COMMON NORMALS: patient oriented x3 SENSORIUM/ORIENTATION: Yes alert GAIT: Yes Normal gait present Skin: COMMON NORMALS: no rashes or lesions noted GENERAL SKIN EXAM: no rashes or lesions noted and dry skin Course Vital Signs: Vital signs: Vital Signs Temperature 98.5 F 08/17/19 08:13 Pulse Rate 64 08/17/19 12:01 Respiratory Rate 15 08/17/19 12:01 Blood Pressure 163/99 08/17/19 12:01 Pulse Oximetry 97 08/17/19 12:01 MDM - Abdominal Pain MDM Narrative: Medical decision making narrative: Patient is a 64-year-old male who comes to the ED with lower back pain, abdominal pain and nausea. Patient has been seen here twice in the last month for same complaint. Patient had an MRCP performed on August 05 and it was normal. Patient describes some i ncreased urine frequency as well and UA showed likely UTI. A CT of the abdomen was performed while he was here in the ED today and it showed Small pancreatic tail is noted Adenopathy. Aortic and vena cava. There is a very small circulation to the spleen. With the above findings we recommend consideration of MRI of the pancreas and abdomen particularly. I placed a referral with case management for patient to get an outpatient MRI of the abdomen for further evaluation. Patient was discharged and prescribed Bentyl for the abdominal cramping pain and Zofran for nausea. Patient was also given a prescription of Bactrim for UTI. Patient told to follow-up with PCP in 7 to 10 days for reevaluation. Patient understood and agreed with plan. Lab Data: Attestation: I reviewed the patient's lab results. Labs: Lab Results 08/17/19 08/17/19 08/17/19 Range/Units 09:01 09:02 09:02 WBC 3.6 L (4.0-10.0) 10^3/ uL RBC 4.82 (4.1-5.3) 10^6/u L Hgb 14.1 (11.7-16.6) g/dL Hct 43.9 (42.0-52.0) % MCV 91.1 (80-94) fL MCH 29.3 (28.0-34.0) pg MCHC 32.1 (30.0-36.0) g/dL RDW 11.9 L (12.1-15.1) % Plt Count 205 (130-400) 10^3/c mm MPV 9.5 (7.4-10.4) fL Neut % (Auto) 60.7 % Lymph % (Auto) 21.4 % [place] % (Auto) 9.2 % Eos % (Auto) 6.7 % Baso % (Auto) 1.7 % Neut # (Auto) 2.2 (1.8-7.7) 10^3/u L Lymph # (Auto) 0.8 (0.8-4.8) 10^3/u L [place] # (Auto) 0.3 (0.2-0.9) 10^3/u L Eos # (Auto) 0.2 (0.0-0.8) 10^3/u L Baso # (Auto) 0.1 (0.0-0.1) 10^3/u L Nucleated RBC % (a uto) 0 % Nucleated RBCs # 0.0 /100WBC Sodium 136 (136-145) mmol/L Potassium 4.5 (3.5-5.1) mmol/L Chloride 99 (98-107) mmol/L Carbon Dioxide 26 (22-29) mmol/L Anion Gap 15.5 (5-19) BUN 11 (8-23) mg/dL Creatinine 0.9 (0.7-1.2) mg/dL GFR Calculation 85.2 L (90-130) mL/min Glucose 189 H (65-115) mg/dL Calculated Osmolal ity 283 L (285-295) mOsm/k g Calcium 10.7 H (8.5-10.5) mg/dL Total Bilirubin 0.6 (0.15-1.2) mg/dL AST 13 (0-40) U/L ALT 15 (0-41) U/L Alkaline Phosphata se 76 (40-130) IU/L Total Protein 7.2 (6.6-8.7) g/dL Albumin 4.5 (3.5-5.2) g/dL Globulin 2.7 (1.3-4.6) g/dL Lipase 22 (13-60) U/L Urine Color Yellow (Yellow) Urine Appearance Clear (CLEAR) Urine pH 6.0 (5-7) Ur Specific Gravit y 1.020 (1.005-1.030) Urine Protein Trace (Negative) Urine Glucose (UA) Norm (Normal) Urine Ketones Negative (Negative) Urine Blood Trace H (Negative) Urine Nitrate Positive H (Negative) Urine Bilirubin Neg (NEGATIVE) Urine Urobilinogen Norm (Negative) mg/dL Ur Leukocyte Pina ase Trace H (Negative) Urine RBC None (0-2) /hpf Urine WBC 0-4 H (0-5) /hpf Ur Squamous Epith Cells Rare (0-5) Urine Bacteria Trace (NONE) Imaging Data ^: CT Abd/Pel: Attestation: I personally reviewed and interpreted this imaging study as follows: Radiologist's impression: [facility] [address] [place] [address] CT Scan Report Signed Patient: Leonidas Swenson Unit #: [id number] : 1955 Age/Sex: 64 / M ADM Date: 08/17/19 Loc: ER Room/Bed: Attending Dr: Ordering Provider/Ordering MD: Derek Rose Date of Service: 08/17/19 Procedure(s): CT abdomen pelvis w con* [id number] Accession Number(s): [id number] Report Number: [id number] WS: [id number] CT abdomen pelvis w con* [id number] REASON FOR EXAM: abdom pain with nausea IV CONTRAST ADMINISTERED: Omnipaque 300, 95 mL. TOTAL EXAM DLP: 1493.[address] scans at [facility] use at least one of these dose optimization techniques: automated exposure control; mA and/or kV adjustment per patient size (includes targeted exams where dose is matched to clinical indication); or iterative reconstruction. FINDINGS: Comparisons were made to July 25, 2019 the small density hypointense in the left lobe of the liver is unchanged. Interposition of the colon between the diaphragm and liver on the right is seen. The spleen was normal. Stomach showed no filling defects. Small varicosities are identified. The pancreas head, body, tail appear to be normal today. The hyperdensity previously described not well seen today there is a small tail of pancreas. The splenic artery on the left appears to be atrophic and questionable occlusion near the aorta. The aorta inferior vena cava were normal. The right and left adrenal glands were normal. There is para-aortic and inferior vena cava lymphadenopathy all appear to be small. There is small bowel distention suggesting reflux ileus. The bladder today does not show a definite diverticulum. The ileus formation is seen in the pelvis. No hernias are noted. The prostate measured 5.3 x 5.1 cm. The gallbladder was normal no stones. The right colon appear to be normal. The appendix was not distended. CT/CT abdomen pelvis w con* [id number] IMPRESSION: Small pancreatic tail is noted Adenopathy. Aortic and vena cava. There is a very small circulation to the spleen. With the above findings we recommend consideration of MRI of the pancreas and abdomen particularly with a small pancreatic tail, lymphadenopathy and small splenic artery and findings on previous exam. 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 Dictated By: Delvin Green DO Signed By: Delvin Geren DO Signed Date/Time: 08/17/19 1053 DD/ 1041 Discharge Plan Discharge Patient Disposition: Home, Self-Care Clinical Impression: Abdominal pain of unknown cause, Lumbar back pain UTI (urinary tract infection) Qualifiers: Urinary tract infection type: acute cystitis Hematuria presence: with hematuria Qualified Code(s): N30.01 - Acute cystitis with hematuria Condition: Stable Prescriptions: New dicyclomine 20 mg tablet 20 mg PO QID Qty: 30 RF: 0 Zofran 4 mg tablet 4 mg PO DAILY Qty: 20 RF: 0 Bactrim DS 800-160 mg tablet 1 tab PO BID 5 Days Qty: 10 RF: 0 No Action sildenafil 25 mg tablet 20 mg PO PRN PRN (Reason: Sexual Activity) RF: 0 aspirin 81 mg tablet,delayed release (DR/EC) 81 mg PO DAILY 90 Days Qty: 90 RF: 0 atorvastatin 80 mg tablet 80 mg PO DAILY 90 Days Qty: 90 RF: 0 lisinopril 5 mg tablet 5 mg PO DAILY 90 Days Qty: 90 RF: 0 Januvia 100 mg tablet 100 mg PO DAILY Qty: 30 RF: 0 glipizide 5 mg tablet extended release 24hr 5 mg PO DAILY 90 Days Qty: 90 RF: 0 metformin 1,000 mg tablet 1,000 mg PO BID 90 Days Qty: 180 RF: 0 diclofenac sodium 75 mg tablet,delayed release (DR/EC) 75 mg PO BID Qty: 60 RF: 0 multivitamin [Multiple Vitamins] Tablet 1 tab PO DAILY RF: 0 cinnamon bark [Cinnamon] 500 mg Capsule 500 mg PO DAILY RF: 0 Fish Oil 1 cap PO DAILY RF: 0 baclofen 10 mg tablet 10 mg PO BEDTIME RF: 0 metoclopramide HCl 10 mg tablet 10 mg PO BID Qty: 60 RF: 0 Discharge Orders: Discharge Order (Routine); Ordered 08/17/19 Ordered By: Derek Rose Referrals: Glo Medina DO [Primary Care Provider] - Discharge Diet: Regular Discharge Activity: Increase activity as tolerated Patient Instructions: Urinary Tract Infection in Men (ED), Abdominal Pain (ED) Activity Restrictions/Additional Instructions: Call your PCP and schedule a follow-up appointment in 7 to 10 days for reevaluation. I placed a referral to case management for you to get an MRI. Somebody should be contacting you to set up an MRI in the next several days. Take the prescribed Bentyl to help with your abdominal cramping and pain. Take full course of Bactrim as prescribed to help with UTI. I am also sending you with a prescription for Zofran to help with any nausea. Take [id number] ibuprofen or Tylenol to help with back pain. Drink plenty of fluids and stay hydrated. You can return to the ED if your symptoms continue to worsen. 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
[2019-08-17] MEDS: ondansetron 2 mg/ML SDV 2 mL 4 MG IVP (09:10)
[2019-08-17] MEDS: sodium chloride 0.9% 1,000 ML 999 ML IV (09:10)
[2019-08-17 09:13] VITALS: BP 143/88; PULSE 57; RESP 18; O2SAT 100
[2019-08-17 09:16] LABS: Bilirubin Urine Neg (NEGATIVE); Blood Urine Trace (Negative); Glucose Urine UA Norm (Normal); Ketones Urine Negative (Negative); Leukocyte Esterase Urine Trace (Negative); Nitrate Urine Positive (Negative); Protein Urine Trace (Negative); Urine Appearance Clear (CLEAR); Urine Color Yellow (Yellow); Urobilinogen Urine Norm (Negative)
[2019-08-17 09:27] LABS: Alanine Aminotransferase 15 U/L (0-41); Albumin Level 4.5 g/dL (3.5-5.2); Alkaline Phosphatase 76 IU/L (40-130); Anion Gap 15.5 (5-19); Aspartate Amino Transferase 13 U/L (0-40); Blood Urea Nitrogen 11 mg/dL (8-23); Calcium 10.7 mg/dL (8.5-10.5); Carbon Dioxide 26 mmol/L (22-29); Chloride 99 mmol/L (98-107); Globulin 2.7 g/dL (1.3-4.6); Glomerular Filtration Rate 85.2 mL/min (90-130); Glucose 189 mg/dL (65-115); Lipase 22 U/L (13-60); Osmolality Calculated 283 mOsm/kg (285-295); Potassium 4.5 mmol/L (3.5-5.1); Sodium 136 mmol/L (136-145); Total Bilirubin 0.6 mg/dL (0.15-1.2); Total Protein 7.2 g/dL (6.6-8.7)
[2019-08-17 09:28] LABS: Basophils # 0.1 10^3/uL (0.0-0.1); Basophils % 1.7 %; Eosinophils # 0.2 10^3/uL (0.0-0.8); Eosinophils % 6.7 %; Hematocrit 43.9 % (42.0-52.0); Hemoglobin 14.1 g/dL (11.7-16.6); Lymphocytes # 0.8 10^3/uL (0.8-4.8); Lymphocytes % 21.4 %; Mean Corpuscular HGB Conc 32.1 g/dL (30.0-36.0); Mean Corpuscular Hemoglobin 29.3 pg (28.0-34.0); Mean Corpuscular Volume 91.1 fL (80-94); Mean Platelet Volume 9.5 fL (7.4-10.4); Monocytes # 0.3 10^3/uL (0.2-0.9); Monocytes % 9.2 %; Neutrophils # 2.2 10^3/uL (1.8-7.7); Neutrophils % 60.7 %; Nucleated Red Blood Cells % 0 %; Platelet Count 205 10^3/cmm (130-400); Red Blood Count 4.82 10^6/uL (4.1-5.3); Red Cell Distribution Width 11.9 % (12.1-15.1); White Blood Count 3.6 10^3/uL (4.0-10.0)
[2019-08-17 09:33] LABS: Add Urine Culture? No; Bacteria Urine TRACE; Squamous Epithelial Cell Urine RARE (0-5); WBC Urine 0-4 /hpf (0-5)
[2019-08-17 09:44] VITALS: RESP 15
[2019-08-17] MEDS: morphine 4 mg/mL SDV 1 mL IVP (09:44)
--- NOTE | 2019-08-17 10:13 | CT_ITS ---
WS: [id number] CT abdomen pelvis w con* [id number] REASON FOR EXAM: abdom pain with nausea IV CONTRAST ADMINISTERED: Omnipaque 300, 95 mL. TOTAL EXAM DLP: 1493.[address] scans at [facility] use at least one of these dose optimization techniques: automat ed exposure control; mA and/or kV adjustment per patient size (includes targeted exams where dose is matched to clinical indication); or iterative reconstruction. FINDINGS: Comparisons were made to July 25, 2019 the small density hypointense in the left lobe of the liver is unchanged. Interposition of the colon between the diaphragm and liver on the right is seen. The spleen was normal. Stomach showed no filling defects. Small varicosities are identified. The pancreas head, body, tail appear to be normal today. The hyperdensity previously described not we ll seen today there is a small tail of pancreas. 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 The aorta inferior vena cava were normal. The right and left adrenal glands were normal. There is para-aortic and inferior vena cava lymphadenopathy all appear to be small. There is small bowel distention suggesting reflux ileus. The bladder today does not show a definite diverticulum. The ileus formation is seen in the pelvis. N o hernias are noted. The prostate measured 5.3 x 5.1 cm. The gallbladder was normal no stones. The right colon appear to be normal. The appendix was not distended. CT/CT abdomen pelvis w con* [id number] IMPRESSION: Small pancreatic tail is noted Adenopathy. Aortic and vena cava. There is a very small circulation to the spleen. With the above findings we recommend consideration of MRI of the pancreas and a bdomen particularly with a small pancreatic tail, lymphadenopathy and small spl enic artery and findings on previous exam. 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
[2019-08-17] MEDS: iohexol 300 mg/mL 100 mL Btl IV (10:29)
[2019-08-17 12:01] VITALS: BP 163/99; PULSE 64; RESP 15; O2SAT 97
--- NOTE | 2019-08-17 15:00 | DCPLANNER ---
curriculum development manager was asked to schedule an outpatient MRI for patient. curriculum development manager got order signed, and faxed outpatient request form to centralized scheduling. Case manger will call for appointment information.
--- NOTE | 2019-08-21 12:35 | DCPLANNER ---
Patient has an MRI scheduled for Saturday, August at 9:30.
--- NOTE | 2019-09-02 14:50 | DCPLANNER ---
Patient did attend appointment scheduled for 08.31.19 for an MRI.
== END 2019-08-17 12:02 | disposition home or self-care (01) ==
PROVIDERS: Emergency Provider Physician Assistant; PCP Family Medicine
DX: N30.01 Acute cystitis with hematuria (principal); Z79.82 Long term (current) use of aspirin; Z79.84 Long term (current) use of oral hypoglycemic drugs
CPT/HCPCS: 12345; 36415; 74177; 80053; 81001; 83690; 85025; 96360; 96361; 96374; 96375; 99283; J2270; J2405; J7030; Q9967

== ENCOUNTER → 2019-08-18 15:37 | Outpatient (BNVA) | payer SELFPAY | PROVIDERS: PCP Family Medicine; Visit Provider Family Medicine | DX: M54.5 Low back pain (principal); E11.9 Type 2 diabetes mellitus without complications | CPT/HCPCS: 83036 ==

== ENCOUNTER 2019-08-25 11:42 | Emergency (ER) | payer MEDICAID, SELFPAY ==
[2019-08-25 11:50] VITALS: BMI 28.4
[2019-08-25 11:53] VITALS: BP 124/82; PULSE 64; RESP 16; TEMP 35.7; O2SAT 100
[2019-08-25 12:44] LABS: Basophils # 0.1 10^3/uL (0.0-0.1); Eosinophils # 0.3 10^3/uL (0.0-0.8); Eosinophils % 5.8 %; Hematocrit 43.2 % (42.0-52.0); Hemoglobin 14.3 g/dL (11.7-16.6); Lymphocytes # 1.2 10^3/uL (0.8-4.8); Lymphocytes % 23.2 %; Mean Corpuscular HGB Conc 33.1 g/dL (30.0-36.0); Mean Corpuscular Hemoglobin 29.2 pg (28.0-34.0); Mean Corpuscular Volume 88.3 fL (80-94); Mean Platelet Volume 9.3 fL (7.4-10.4); Monocytes # 0.4 10^3/uL (0.2-0.9); Neutrophils # 3.1 10^3/uL (1.8-7.7); Nucleated Red Blood Cells % 0 %; Platelet Count 199 10^3/cmm (130-400); Red Blood Count 4.89 10^6/uL (4.1-5.3); Red Cell Distribution Width 11.9 % (12.1-15.1)
[2019-08-25 12:46] LABS: Bilirubin Urine Neg (NEGATIVE); Blood Urine Neg (Negative); Glucose Urine UA Norm (Normal); Ketones Urine Negative (Negative); Leukocyte Esterase Urine Negative (Negative); Nitrate Urine Negative (Negative); Protein Urine Neg (Negative); Specific Gravity, Urine 1.005 (1.005-1.030); Urine Appearance Clear (CLEAR); Urine Color Yellow (Yellow); Urobilinogen Urine Norm (Negative); pH Urine 7 (5-7)
[2019-08-25 12:47] LABS: Add Urine Culture? No; Bacteria Urine TRACE; Squamous Epithelial Cell Urine 0-4 (0-5); WBC Urine 0-4 /hpf (0-5)
--- NOTE | 2019-08-25 12:57 | W.ED.BACK ---
HPI - Back Pain/Injury General: Chief Complaint: Abdominal Pain Stated Complaint: abd/back pain Time Seen by Provider: 08/25/19 12:09 History of Present Illness: HPI Narrative: Patient is a 64-year-old male comes to the ED with back pain. Patient has been seen here in the ED multiple times in the last month for same complaint. Patient recently saw his primary care physician Dr. eMdina and she set up a pain management referral for patient. He also has an MRI of his thoracic spine scheduled on September 01. He says after his MRI pain management will see him. He is here today because he says he cannot take this pain. Patient says his laying on the floor or sitting and leaning forward brings some relief to his back pain. Pain is rated at 10 out of 10. Patient says he has taken some tramadol that he got from his father and that did not provide him any relief. He made a comment that if he does not get some pain relief he is contemplating suicide. His mother fill out an affidavit stating he has threatened suicide if his pain does not get under control. Mother is concerned because [place] and [place] good cell phone service. She is worried he might hurt himself if he goes back home and still has pain. Associated symptoms: Deny abdominal pain, chills, dysuria, fatigue, fever(s), hematuria, nausea or vomiting Review of Systems Const: Denies: fever(s), chills or fatigue Eyes: Denies: change in vision or eye discomfort ENMT: Denies: throat pain, odynophagia, nasal discharge or nasal congestion Card: Denies: chest pain, palpitations, edema, swelling of feet/ankles, dyspnea on exertion or orthopnea Resp: Denies: dyspnea, productive cough or non-productive cough GI: Denies: abdominal pain, nausea, vomiting, diarrhea, constipation or hematochezia : Denies: flank pain, difficulty urinating, dysuria or hematuria Musc: Reports: back pain; Denies: neck pain or extremity swelling Skin/Breast: Denies: rash or new lesions Neuro: Denies: headache(s), numbness in extremities or weakness in extremities [facility] ED PFSH: Medical History History of inguinal hernia Surgical History History of inguinal hernia repair History of vasectomy Social History Smoking and tobacco status: never smoked Alcohol intake: current Alcohol intake frequency: holidays/special occasions only Physical Exam Narrative: EXAM NARRATIVE: Patient is a 64-year-old male who is sitting comfortably on a chair in the ED room when I entered. He is showing no signs of acute distress or pain. Const: COMMON NORMALS: no acute distress, patient oriented x3 and alert GENERAL APPEARANCE: cooperative and comfortable HENMT: COMMON NORMALS: normocephalic HEAD & SCALP: normocephalic MOUTH: Normal oral and palatal mucosa present THROAT: posterior oropharynx normal and uvula midline Eye: COMMON NORMALS: Equal, round and reactive pupils present PUPIL: Yes Equal, round and reactive pupils present Neck/C-Spine: COMMON NORMALS: supple GENERAL: Yes normal visual inspection Resp: COMMON NORMALS: normal respiratory effort, No retractions, No use of accessory muscles and clear to auscultation bilaterally AUSCULTATION: clear to auscultation bilaterally Cardio: COMMON NORMALS: regular rate, regular rhythm, S1 normal heart sound present, S2 normal heart sound present, No gallops present (Cardio), No clicks present (Cardio), No murmurs present (Cardio) and Peripheral pulses 2+ throughout RATE: regular rate RHYTHM: regular rhythm HEART SOUNDS: S1 normal heart sound present and S2 normal heart sound present PERIPHERAL PULSES: Peripheral pulses 2+ throughout GI: COMMON NORMALS: Normal to inspection, nondistended, normoactive bowel sounds present, Soft to palpation, non-tender and no masses PALPATION: Yes Soft to palpation : COMMON NORMALS: Yes no CVA tenderness BLADDER/KIDNEY EXAM: Yes no CVA tenderness Back/Pelvis: COMMON NORMALS: no CVA tenderness THORACIC SPINE/UPPER BACK: Yes paraspinal muscle tenderness Thoracic paraspinal muscle tenderness: bilateral Extremity: COMMON NORMALS: normal to inspection and no pedal edema Neuro: COMMON NORMALS: patient oriented x3 and moves all extremities SENSORIUM/ORIENTATION: Yes alert Skin: COMMON NORMALS: no rashes or lesions noted GENERAL SKIN EXAM: no rashes or lesions noted and dry skin Course Consultations: Consultation #1: I spoke with Dr. Fortune about patient's case and his threatening of suicide if he does not get his pain under control. I also discussed with Dr. Fortune about his mother providing a signed affidavit. Dr. Fortune said he will go and see patient here in the ED and come talk with me about his thoughts afterwards. Dr. Fortune talk to patient and evaluated him. Dr. Fortune said patient is cleared to go home and be discharged. Time: 14:00 Vital Signs: Vital signs: Vital Signs Temperature 96.2 F L 08/25/19 11:53 Pulse Rate 72 08/25/19 15:42 Respiratory Rate 18 08/25/19 15:42 Blood Pressure 133/82 08/25/19 15:42 Pulse Oximetry 98 08/25/19 15:42 MDM - Back Pain/Injury MDM Narrative: Medical decision making narrative: Patient is a 64-year-old male comes to the ED with back pain. He has been seen here multiple times in the ED and he is wanting something for pain. He saw his PCP Dr. Medina recently and she set patient up for an MRI (on September 01) of his back and has him set up to see pain management afterwards. Patient comes here to the ED seeking pain meds. Patient told me that if he doesn't get something for his pain he might commit suicide. Patient's mother also filled out a 96-hour hold affidavit because she said he is threatened to kill himself if he does get his pain controlled. I contacted Dr. Fortune the on-call psych doctor and he was going to come down and evaluate the patient while in the ED. Dr. Fortune performed an evaluation and told me that patient is cleared for discharge and does not need to be brought into the [facility]. Patient was given a shot of Toradol and Norflex while here in the ED. Patient was also given a dose of tramadol while here in the ED and was sent home with a dose of tramadol. Patient told to follow-up with pain management as scheduled. Lab Data: Attestation: I reviewed the patient's lab results. Labs: Lab Results 08/25/19 08/25/19 08/25/19 Range/Units 12:05 12:05 12:37 WBC 5.0 (4.0-10.0) 10^3/ uL RBC 4.89 (4.1-5.3) 10^6/u L Hgb 14.3 (11.7-16.6) g/dL Hct 43.2 (42.0-52.0) % MCV 88.3 (80-94) fL MCH 29.2 (28.0-34.0) pg MCHC 33.1 (30.0-36.0) g/dL RDW 11.9 L (12.1-15.1) % Plt Count 199 (130-400) 10^3/c mm MPV 9.3 (7.4-10.4) fL Neut % (Auto) 63.0 % Lymph % (Auto) 23.2 % [place] % (Auto) 7.0 % Eos % (Auto) 5.8 % Baso % (Auto) 1.0 % Neut # (Auto) 3.1 (1.8-7.7) 10^3/u L Lymph # (Auto) 1.2 (0.8-4.8) 10^3/u L [place] # (Auto) 0.4 (0.2-0.9) 10^3/u L Eos # (Auto) 0.3 (0.0-0.8) 10^3/u L Baso # (Auto) 0.1 (0.0-0.1) 10^3/u L Nucleated RBC % (a uto) 0 % Nucleated RBCs # 0.0 /100WBC Sodium (136-145) mmol/L Potassium (3.5-5.1) mmol/L Chloride (98-107) mmol/L Carbon Dioxide (22-29) mmol/L Anion Gap (5-19) BUN (8-23) mg/dL Creatinine (0.7-1.2) mg/dL GFR Calculation (90-130) mL/min Glucose (65-115) mg/dL Calculated Osmolal ity (285-295) mOsm/k g Lactic Acid (0.5-2.2) mmol/L Calcium (8.5-10.5) mg/dL Total Bilirubin (0.15-1.2) mg/dL AST (0-40) U/L ALT (0-41) U/L Alkaline Phosphata se (40-130) IU/L Total Protein (6.6-8.7) g/dL Albumin (3.5-5.2) g/dL Globulin (1.3-4.6) g/dL Lipase (13-60) U/L Urine Color Yellow (Yellow) Urine Appearance Clear (CLEAR) Urine pH 7 (5-7) Ur Specific Gravit y 1.005 (1.005-1.030) Urine Protein Neg (Negative) Urine Glucose (UA) Norm (Normal) Urine Ketones Negative (Negative) Urine Blood Neg (Negative) Urine Nitrate Negative (Negative) Urine Bilirubin Neg (NEGATIVE) Urine Urobilinogen Norm (Negative) mg/dL Ur Leukocyte Pina ase Negative (Negative) Urine RBC None (0-2) /hpf Urine WBC 0-4 H (0-5) /hpf Ur Squamous Epith Cells 0-4 H (0-5) Urine Bacteria Trace (NONE) Salicylates (3-10) mg/dL Urine Opiates Scre en Negative (Negative) ng/mL Acetaminophen (10-30) ug/mL Ur Barbiturates Sc reen Negative (Negative) ng/mL Ur Phencyclidine S crn Negative (Negative) ng/mL Ur Amphetamines Sc reen Negative (Negative) ng/mL U Benzodiazepines Scrn Negative (Negative) ng/mL Urine Cocaine Scre en Negative (Negative) ng/mL U Marijuana (THC) Screen Negative (Negative) ng/mL Ethyl Alcohol (0-10) mg/dL 08/25/19 08/25/19 Range/Units 12:37 12:37 WBC (4.0-10.0) 10^3/ uL RBC (4.1-5.3) 10^6/u L Hgb (11.7-16.6) g/dL Hct (42.0-52.0) % MCV (80-94) fL MCH (28.0-34.0) pg MCHC (30.0-36.0) g/dL RDW (12.1-15.1) % Plt Count (130-400) 10^3/c mm MPV (7.4-10.4) fL Neut % (Auto) % Lymph % (Auto) % [place] % (Auto) % Eos % (Auto) % Baso % (Auto) % Neut # (Auto) (1.8-7.7) 10^3/u L Lymph # (Auto) (0.8-4.8) 10^3/u L [place] # (Auto) (0.2-0.9) 10^3/u L Eos # (Auto) (0.0-0.8) 10^3/u L Baso # (Auto) (0.0-0.1) 10^3/u L Nucleated RBC % (a uto) % Nucleated RBCs # /100WBC Sodium 135 L (136-145) mmol/L Potassium 4.4 (3.5-5.1) mmol/L Chloride 97 L (98-107) mmol/L Carbon Dioxide 24 (22-29) mmol/L Anion Gap 18.4 (5-19) BUN 15 (8-23) mg/dL Creatinine 1.1 (0.7-1.2) mg/dL GFR Calculation 67.6 L (90-130) mL/min Glucose 124 H (65-115) mg/dL Calculated Osmolal ity 278 L (285-295) mOsm/k g Lactic Acid 1.1 (0.5-2.2) mmol/L Calcium 10.0 (8.5-10.5) mg/dL Total Bilirubin 0.6 (0.15-1.2) mg/dL AST 17 (0-40) U/L ALT 21 (0-41) U/L Alkaline Phosphata se 68 (40-130) IU/L Total Protein 7.4 (6.6-8.7) g/dL Albumin 4.7 (3.5-5.2) g/dL Globulin 2.7 (1.3-4.6) g/dL Lipase 18 (13-60) U/L Urine Color (Yellow) Urine Appearance (CLEAR) Urine pH (5-7) Ur Specific Gravit y (1.005-1.030) Urine Protein (Negative) Urine Glucose (UA) (Normal) Urine Ketones (Negative) Urine Blood (Negative) Urine Nitrate (Negative) Urine Bilirubin (NEGATIVE) Urine Urobilinogen (Negative) mg/dL Ur Leukocyte Pina ase (Negative) Urine RBC (0-2) /hpf Urine WBC (0-5) /hpf Ur Squamous Epith Cells (0-5) Urine Bacteria (NONE) Salicylates < 0.3 L (3-10) mg/dL Urine Opiates Scre en (Negative) ng/mL Acetaminophen < 5.0 L (10-30) ug/mL Ur Barbiturates Sc reen (Negative) ng/mL Ur Phencyclidine S crn (Negative) ng/mL Ur Amphetamines Sc reen (Negative) ng/mL U Benzodiazepines Scrn (Negative) ng/mL Urine Cocaine Scre en (Negative) ng/mL U Marijuana (THC) Screen (Negative) ng/mL Ethyl Alcohol < 10 (0-10) mg/dL Discharge Plan Discharge Patient Disposition: Home, Self-Care Clinical Impression: Thoracic back pain Qualifiers: Chronicity: acute Back pain laterality: bilateral Qualified Code(s): M54.6 - Pain in thoracic spine Condition: Stable Prescriptions: No Action Januvia 100 mg tablet 100 mg PO DAILY Qty: 30 RF: 0 diclofenac sodium 75 mg tablet,delayed release (DR/EC) 75 mg PO BID Qty: 60 RF: 0 multivitamin [Multiple Vitamins] Tablet 1 tab PO DAILY RF: 0 cinnamon bark [Cinnamon] 500 mg Capsule 500 mg PO DAILY RF: 0 Fish Oil 1 cap PO DAILY RF: 0 baclofen 10 mg tablet 10 mg PO BEDTIME RF: 0 metoclopramide HCl 10 mg tablet 10 mg PO BID Qty: 60 RF: 0 dicyclomine 20 mg tablet 20 mg PO QID Qty: 30 RF: 0 ondansetron HCl [Zofran] 4 mg tablet 4 mg PO DAILY Qty: 20 RF: 0 glipizide 5 mg tablet extended release 24hr 5 mg PO DAILY RF: 0 aspirin 81 mg tablet,delayed release (DR/EC) 81 mg PO DAILY RF: 0 metformin 1,000 mg tablet 1,000 mg PO BID RF: 0 lisinopril 5 mg tablet 5 mg PO DAILY RF: 0 Discharge Orders: Discharge Order (Routine); Ordered 08/25/19 Ordered By: Derek Rose Referrals: Glo Medina DO [Primary Care Provider] - Discharge Diet: Regular Discharge Activity: Increase activity as tolerated Patient Instructions: Back Pain (ED) Activity Restrictions/Additional Instructions: Follow-up with PCP in 7 to 10 days for reevaluation. Take pain medication as prescribed. Discharge Date/Time: 08/25/19 15:44 Coding Level of Care Code ED Research Professional for [employer] Exam Comprehensive
[2019-08-25 12:58] LABS: Lactic Sepsis W/Reflex 1.1 mmol/L (0.5-2.2)
[2019-08-25 13:32] LABS: Alanine Aminotransferase 21 U/L (0-41); Albumin Level 4.7 g/dL (3.5-5.2); Alkaline Phosphatase 68 IU/L (40-130); Anion Gap 18.4 (5-19); Aspartate Amino Transferase 17 U/L (0-40); Blood Urea Nitrogen 15 mg/dL (8-23); Carbon Dioxide 24 mmol/L (22-29); Chloride 97 mmol/L (98-107); Globulin 2.7 g/dL (1.3-4.6); Glomerular Filtration Rate 67.6 mL/min (90-130); Glucose 124 mg/dL (65-115); Lipase 18 U/L (13-60); Osmolality Calculated 278 mOsm/kg (285-295); Potassium 4.4 mmol/L (3.5-5.1); Sodium 135 mmol/L (136-145); Total Bilirubin 0.6 mg/dL (0.15-1.2); Total Protein 7.4 g/dL (6.6-8.7)
[2019-08-25 13:41] LABS: Acetaminophen < 5.0 ug/mL (10-30); Alcohol Level < 10 mg/dL (0-10); Salicylate < 0.3 mg/dL (3-10)
[2019-08-25 13:45] LABS: Amphetamines Screen Urine Negative (Negative); Barbiturates Screen Urine Negative (Negative); Benzodiazepines Screen Urine Negative (Negative); Cocaine Screen Urine Negative (Negative); Opiate Screen Urine Negative (Negative); PCP Screen Urine Negative (Negative); THC Screen Urine Negative (Negative)
[2019-08-25] MEDS: ketorolac 30 mg/mL INJ IM (14:26)
[2019-08-25] MEDS: orphenadrine 30 mg/mL Inj 2 mL 60 MG IM (14:26)
[2019-08-25] MEDS: TRAMadol 50 mg Tablet PO ×2 (15:38→15:39)
[2019-08-25 15:42] VITALS: BP 133/82; PULSE 72; RESP 18; O2SAT 98
== END 2019-08-25 15:44 | disposition home or self-care (01) ==
PROVIDERS: Emergency Medicine; Emergency Provider Physician Assistant; PCP Family Medicine
DX: M54.6 Pain in thoracic spine (principal); Z79.84 Long term (current) use of oral hypoglycemic drugs; Z79.82 Long term (current) use of aspirin
CPT/HCPCS: 12345; 36415; 80053; 80306; 80307; 81001; 83605; 83690; 85025; 96372; 99283; J1885; J2360

== ENCOUNTER 2019-08-31 09:04 | Outpatient (CLI) | payer MEDICAID, SELFPAY ==
--- NOTE | 2019-08-31 09:11 | MR_ITS ---
WS: [id number] MRI abdomen with and without contrast. HISTORY: Abdominal pain. COMPARISON: MRCP 08/06/2019, prior CTs of the abdomen 07/25/2019 and 08/17/2019. MRI abdomen is performed with and without contrast. Liver and spleen are top normal size. No bile duct dilatation. No mass. Normally distended gallbladde r. No ascites. No renal mass or obstruction. Pancreas: The very distal pancreatic tail is truncated. There is abnormal signal within the body and distal pancreas. Although there is no significant enhancement the duct is not visualized as a discret e structure. Head of the pancreas is more normal size. There is a small cyst measuring 5 mm in the di stal pancreas. No adjacent inflammation or pancreatitis. As described on prior studies there are enlarged lymph nodes. Largest aortocaval lymph node measures 1.7 cm. There is a cluster of enlarged lymph nodes LEFT para-aortic measuring 2.0 cm in diameter. The re is an additional lymph node near the celiac axis measuring 2.2 cm. MR/MR abdomen wo/w con* [id number] IMPRESSION: 1. Although there is no enhancing mass the body and distal pancreas are abnorma l in size with the duct not identified as a discrete structure. Pancreatic duct mass is not excluded. 2. Celiac axis, aortocaval and retroperitoneal lymphadenopathy. Etiology of the lymphadenopathy needs to be determined. Pancreatic neoplasm and lymphoma shoul d be considered as possible etiologies. 3. PET/CT imaging may be helpful. Otherwise biopsy of adenopathy may be necessa ry to determine etiology.
== END 2019-08-31 09:05 | disposition home or self-care (01) ==
LOC: RADWPI 09:09
PROVIDERS: Family Provider Family Medicine; PCP Family Medicine; Visit Provider Physician Assistant
DX: R10.9 Unspecified abdominal pain (principal)
CPT/HCPCS: 74183; A9579

== ENCOUNTER 2019-09-02 15:51 | Outpatient (CLI) | payer MEDICAID, SELFPAY ==
--- NOTE | 2019-09-02 16:00 | MR_ITS ---
WS: [id number] MRI LUMBAR SPINE NONCONTRAST TECHNIQUE: Sagittal T1, T2 and STIR imaging. Axial T1 and T2 imaging. CLINICAL INFORMATION: M54.5 Low back pain COMPARISON: None. FINDINGS: Mild lumbar curve. No acute compression. No high-grade central canal stenosis. Mild annular bulging L 3-4. L1-L2: Mild annular bulging. Mild facet arthropathy. Spinal canal and foramen are patent. L2-L3: Mild annular bulging with slight effacement of ventral thecal sac. Narrowing of the left subar ticular recess. Encroachment traversing left L3 nerve root. Mild facet arthropathy. Mild left foramin al narrowing. L3-L4: Shallow central disc protrusion with slight effacement of the ventral thecal sac. Narrowing of the subarticular recess bilaterally with slight impingement traversing left L4 nerve root. Mild cent ral canal stenosis. Mild right greater than left foraminal narrowing. Mild facet arthropathy. L4-L5: No significant disc bulging. Moderate facet arthropathy. Mild right and no significant left fo raminal narrowing. L5-S1: Shallow central disc protrusion slightly contacts the traversing S1 nerve roots. Mild left and no significant right foraminal narrowing. Mild facet arthropathy. MR/MR lumbar spine wo con* [id number] IMPRESSION: 1. Mild lumbar curve. No acute compression. No high-grade central canal stenos is. 2. Annular bulging L3-4 with mild central canal stenosis and impingement trave rsing L4 nerve roots left greater than right. 3. Tiny shallow central protrusion L5-S1 with slight contact of the traversing S1 nerve roots. 4. Small shallow left pericentral protrusion L2-3 with narrowing of the left s ubarticular recess and encroachment on the left L3 nerve root. 5. Mild foraminal narrowing worse at right L3-4, right L4-5, and left L5-S1. 6. Mild to moderate facet arthropathy L3-L5.
== END 2019-09-02 15:52 | disposition home or self-care (01) ==
PROVIDERS: PCP Family Medicine; Visit Provider Family Medicine
DX: M51.26 Other intervertebral disc displacement, lumbar region (principal); M51.27 Other intervertebral disc displacement, lumbosacral region; M48.061 Spinal stenosis, lumbar region without neurogenic claudication; M48.07 Spinal stenosis, lumbosacral region; M47.816 Spondylosis without myelopathy or radiculopathy, lumbar region
CPT/HCPCS: 72148

== ENCOUNTER 2019-09-07 14:15 | Outpatient (CLI) | payer MEDICAID, SELFPAY ==
[2019-09-07 17:05] LABS: Cancer Antigen 19 9 11.99 U/mL (0-35); Carcinoembryonic Antigen 19.9 ng/mL (0.0-4.7)
[2019-09-07 17:17] LABS: Alanine Aminotransferase 15 U/L (0-41); Albumin Level 4.3 g/dL (3.5-5.2); Alkaline Phosphatase 62 IU/L (40-130); Anion Gap 21.3 (5-19); Blood Urea Nitrogen 13 mg/dL (8-23); Calcium 10.1 mg/dL (8.5-10.5); Carbon Dioxide 23 mmol/L (22-29); Chloride 97 mmol/L (98-107); Globulin 3.3 g/dL (1.3-4.6); Glomerular Filtration Rate 75.5 mL/min (90-130); Glucose 96 mg/dL (65-115); Osmolality Calculated 280 mOsm/kg (285-295); Potassium 4.3 mmol/L (3.5-5.1); Sodium 137 mmol/L (136-145); Total Bilirubin 0.5 mg/dL (0.15-1.2); Total Protein 7.6 g/dL (6.6-8.7)
--- NOTE | 2019-09-07 17:18 | ONC CON_ITS ---
Dr. Ventura New Patient Note Patient: Leonidas Swenson Unit #: [id number]: 1955 Dicatated By: Nakul Venutra M.D.Date of Visit: Sep 07, 2019 Onc MED New Patient/Consult Referring Physician: Dr. GENI GILLESPIE D.O. Chief Complaint: Lymphadenopathy. History of Present Illness: This is a 64 year-old man with celiac axis, aortocaval, and retroperitoneal lymphadenopathy. He has type 2 diabetes and hyperlipidemia. Sometime within the past 10 to 12 months he began having pain in his stomach and back. The pain gradually worsened, and he developed additional symptoms including anorexia, postprandial vomiting, and progressive weakness. He has had weight loss in the range of 40 pounds over the past 3 months. 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 On 07/25/2019 he presented to the emergency room with abdominal pain. His CT abdomen/pelvis showed the pancreatic tail to be either absent or very atrophic. Pancreatic body was noted to be mildly hypodense, but the appearance was nonspecific. Prominent lymph nodes were noted, including a 2 x 1.4 cm peripancreatic lymph node as well as prominent retroperitoneal para-aortic lymph nodes. The lipase was normal. Further evaluation with cholangiopancreatography MRI on 08/06/2019 showed normal signal within the pancreas with mildly truncated distal pancreas, felt to be likely a normal variant. 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 The gallbladder showed no abnormal findings. He was seen in the ER again on 08/17/2019. CT abdomen/pelvis showed similar findings. Abdominal MRI on 08/31/2019 reported abnormal signal within the body and distal pancreas, but without evidence of enhancing mass. Again noted was aortocaval and periaortic adenopathy with the largest aortocaval node measuring 1.7 cm and a cluster of enlarged periaortic lymph nodes measuring 2.0 cm. An additional lymph node or other celiac axis measure 2.2 cm. MRI of the lumbar spine on 09/02/2019 showed degenerative changes at multiple levels, but no lytic bone disease or other evidence of malignancy. He is seen now for further management. He continues to have severe pain in the mid to lower back along with pain in his mid and lower abdominal area. The pain is constant. It does get worse when he is sitting, but does not seem to be as bad when he is up and walking. He has very poor energy and very limited activity. ECOG score is 3. Appetite, as noted, is very poor, as everything he eats wants to come back up. His weight is down 40 pounds over the past 3 months. He has not had fever. He has occasional night sweating. He does not complain of shortness of breath, cough, or chest pain. He has some acid reflux, but he has not been taking medication regularly. He has constipation. His bowels are moving about every 3 days. Bladder function has been okay, though his urine output is not been as good. He does not complain of headache. He has had some orthostatic lightheadedness. He has no focal neurologic symptoms. Past Medical History: His medical history includes hyperlipidemia and type II diabetes. Past Surgical History: His surgical/procedural history includes Lasik eye surgery bilaterally, right inguinal hernia repair, and vasectomy. Medications: Aspirin 1 Tablet (of 81 mg) Tablet, enteric coated Oral daily, Cinnamon 1 Capsule Oral daily, Fish Oil 1 Capsule Oral daily, glipiZIDE XL 1 Tablet (of 5 mg) Tablet SR 24 HR Oral daily, Januvia 1 Tablet (of 100 mg) Oral daily, Lisinopril 1 Tablet (of 5 mg) Oral daily, metFORMIN HCl 1 Tablet (of 1000 mg) Oral b.i.d., Multivitamin Adult 1 Tablet Oral daily, traMADol HCl 1 Tablet (of 50 mg) Oral q 6 hours PRN Allergies: No Known Allergies. Social History: Mr. Swenson is . 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 He has not been able to work due to this illness. He is a nonsmoker. He does not drink alcohol. Family History: Mother is still living at age 82. Father at age 52 with cancer involving his jawbone. He has six siblings, all apparently in good health. Review Of Symptoms: Constitutional - His energy is poor. He has very limited activity. Appetite also was poor. He says that everything he eats wants to come back up. Says the taste of food makes him sick. His weight is down 40 pounds over the past 3 months. He has not had fever. He has occasional sweating at night. ECOG score is 3, Eyes - No change in vision, ENMT - No hearing loss or tinnitus. No sinus congestion/drainage. No mouth sores. No sore throat or difficulty swallowing, Hematologic/Lymphatic - No abnormal bruising or bleeding, Respiratory - No shortness of breath. No cough. No pleuritic pain or hemoptysis, Cardiovascular - No angina pain. No palpitations, Gastrointestinal - He has pain in the mid to lower abdomen on both sides. He has nausea and he has postprandial vomiting. He has acid reflux. He has constipation. His bowels move about every 3 days. No blood in the stool or black stools, Genitourinary (M) - He has not had much urine output. No dysuria or hematuria. No urinary frequency. No urgency or incontinence, Musculoskeletal - He has pain in the mid to lower back, Integumentary - No skin rash, Neurologic - No headache. He has some orthostatic lightheadedness. No numbness or tingling. No other focal neurologic symptoms, Psychiatric - He has some depression. He has not been sleeping well. Vital Signs: Performed on Sep 07, 2019 14:33: 10, 36.05 (HIGH), 2.15 sq.m, 67.00 in, 100 %, 74 /min, 24 /min, 113/76 mm(hg), 97.4 F (LOW), and 230.2 lbs (HIGH). Physical Examination: Constitutional - He appears somewhat weak generally, but not acutely ill, Eyes - Sclerae nonicteric. Conjunctivae clear, ENMT - No lesions noted in the oral cavity, Neck - No mass or thyromegaly, Hematologic/Lymphatic - No cervical, clavicular, or axillary adenopathy, Respiratory - Lungs are clear with good air movement bilaterally, Cardiovascular - Heart rhythm is regular with some premature beats. There is no murmur, gallop, or rub noted, Abdomen - Soft with just mild tenderness in the epigastric area. Liver and spleen are not enlarged. There is no abdominal mass or ascites noted and there is no inguinal adenopathy, Back/Spine - No spine or CVA tenderness noted, Extremities - No edema. Pedal pulses are palpable bilaterally, Integumentary - No rashes. No suspicious skin lesions noted, Neurologic - No focal neurologic deficits noted. Impression: 1. Patient with celiac axis, aortocaval, and retroperitoneal adenopathy in association with multiple symptoms including back pain, abdominal pain, nausea/anorexia and postprandial vomiting, weight loss, and progressive weakness. Although there has not been any discrete mass evident by CT or MRI, the constellation of symptoms together with the lymphadenopathy is highly suspicious for pancreatic cancer or other intra-abdominal malignancy. 2. Type 2 diabetes. 3. Hyperlipidemia. Plan: The CT findings were reviewed with the patient. We discussed the clinical implications. As noted, the symptoms he is experiencing together with the lymphadenopathy are highly suspicious for pancreatic cancer or other malignancy, though we do not see a discrete mass by CT or MRI. At least initially, I will check additional laboratory studies including CBC and CMP along with CEA and CA-19-9 levels. Ultimately, though, we will need to localize a site for biopsy, and that is going to be problematic as I have reviewed the CT and MRI studies with the radiologist and those lymph nodes are not going to be very accessible for needle biopsy. In the meantime, I will now have him start MSIR 15 mg as needed for the pain, and he also will start metoclopramide 10 mg 3 times daily together with pantoprazole 40 mg daily. I recommended that he stop the aspirin and the tramadol. I also suggested, at least for the time being, that he stop the lisinopril, as his blood pressure is relatively low. Signed By: Nakul Ventura M.D. <<Signature on File>>
[2019-09-07 17:31] LABS: Aspartate Amino Transferase 17 U/L (0-40)
== END 2019-09-07 14:16 | disposition home or self-care (01) ==
PROVIDERS: PCP Family Medicine; Visit Provider Internal Medicine Medical Oncology
DX: R59.0 Localized enlarged lymph nodes (principal); E78.5 Hyperlipidemia, unspecified; E11.9 Type 2 diabetes mellitus without complications
CPT/HCPCS: 36415; 80053; 82378; 85025; 86301; 99205

== ENCOUNTER → 2019-10-06 13:54 | Outpatient (BNVA) | payer SELFPAY | PROVIDERS: PCP Family Medicine; Visit Provider Internal Medicine | DX: Z01.812 Encounter for preprocedural laboratory examination (principal) | CPT/HCPCS: 87635 ==

== ENCOUNTER 2019-10-14 10:26 | Outpatient (CLI) | payer MEDICAID, SELFPAY ==
--- NOTE | 2019-10-19 07:51 | ONC FU_ITS ---
Dr. Ventura Patient Follow-Up Note Patient: Leonidas Swenson Unit #: [id number]: 1955 Dicatated By: Nakul Ventura M.D.Date of Visit:Oct 14, 2019 Onc Med Follow-up/Prog Note Chief Complaint: Pancreatic cancer. History of Present Illness: This is a 64 year-old man had been seen initially with celiac axis, aortocaval, and retroperitoneal lymphadenopathy. He now has been confirmed to have pancreatic adenocarcinoma. He has type 2 diabetes and hyperlipidemia. Sometime within the past year or so he began having pain in his stomach and back. The pain gradually worsened, and he developed additional symptoms including anorexia, postprandial vomiting, and progressive weakness. He has had weight loss in the range of 40 pounds over a period of 3 months. 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 On 07/25/2019 he presented to the emergency room with abdominal pain. His CT abdomen/pelvis showed the pancreatic tail to be either absent or very atrophic. Pancreatic body was noted to be mildly hypodense, but the appearance was nonspecific. Prominent lymph nodes were noted, including a 2 x 1.4 cm peripancreatic lymph node as well as prominent retroperitoneal para-aortic lymph nodes. The lipase was normal. Further evaluation with cholangiopancreatography MRI on 08/06/2019 showed normal signal within the pancreas with mildly truncated distal pancreas, felt to be likely a normal variant. 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 The gallbladder showed no abnormal findings. He was seen in the ER again on 08/17/2019. CT abdomen/pelvis showed similar findings. Abdominal MRI on 08/31/2019 reported abnormal signal within the body and distal pancreas, but without evidence of enhancing mass. Again noted was aortocaval and periaortic adenopathy with the largest aortocaval node measuring 1.7 cm and a cluster of enlarged periaortic lymph nodes measuring 2.0 cm. An additional lymph node or other celiac axis measure 2.2 cm. MRI of the lumbar spine on 09/02/2019 showed degenerative changes at multiple levels, but no lytic bone disease or other evidence of malignancy. I had seen him initially on 09/07/2019. He then had further evaluation with PET/CT on 09/12/2019. It showed a 3.2 x 6.8 cm region of abnormal activity within the mid pancreas with SUV 7.0, consistent with primary pancreatic carcinoma. There was extensive FDG positive upper abdominal lymphadenopathy and there was an enlarged celiac lymph node measuring 2.9 cm with SUV 8.4, consistent with local metastatic disease. There is additional bilateral FDG avid lymph nodes, scattered FDG avid mesenteric lymph nodes, and FDG avid hepatic lesions, all consistent with metastatic disease. With those findings, he was referred to Dr. Deon Calderon at [facility]. He had further evaluation with EGD and upper abdominal EUS on 10/08/2019. The EGD did show some evidence of gastritis with negative gastric biopsy for helicobacter pylori. The upper EUS showed a 32.4 x 35.3 mm hypoechoic irregular mass in the body of the pancreas and a 24.8 x 25.5 mm hypoechoic ovoid celiac lymph node, both of which were evaluated with FNA biopsy. Pathology was positive for adenocarcinoma at both sites. He is seen now for a follow-up visit. Overall he has been feeling better generally compared to his initial visit, though he says he has been sleeping quite a bit. He has been getting adequate pain relief with immediate release morphine at the 30 mg dosage. He does complain of his been having some anxiety, including a major episode of anxiety last evening/night. It was severe enough that his mother had to go over and stay with him last night. He has been having difficulty sleeping in his bed, and he actually has been resting better on the floor. His appetite is better, but his weight is down another 4 pounds. He does not have fever or night sweats. He sometimes has shortness of breath at night. He has not been having chest pain. He still has pain in his abdomen and back, but the morphine is managing it adequately. He has some constipation, but his bowel function is adequate with Dulcolax. His urination is slow. He does not complain of headache or dizziness. He sometimes has numbness in his fingers. He had a recent episode in which his whole left hand went numb and his hand also got cold, but that lasted only for 5 to 10 minutes. Medications: Aspirin 1 Tablet (of 81 mg) Tablet, enteric coated Oral daily, Cinnamon 1 Capsule Oral daily, Fish Oil 1 Capsule Oral daily, glipiZIDE XL 1 Tablet (of 5 mg) Tablet SR 24 HR Oral daily, Januvia 1 Tablet (of 100 mg) Oral daily, Lisinopril 1 Tablet (of 5 mg) Oral daily, LORazepam 1 Tablet (of 0.5 mg) Oral 6x/d, metFORMIN HCl 1 Tablet (of 1000 mg) Oral b.i.d., Metoclopramide HCl 1 Tablet (of 10 mg) Oral daily, Morphine Sulfate 1 Tablet (of 15 mg) Oral q 4 hours PRN, Multivitamin Adult 1 Tablet Oral daily, traMADol HCl 1 Tablet (of 50 mg) Oral q 6 hours PRN Allergies: No Known Allergies. Review of Systems: Constitutional - He is feeling somewhat better generally, though he has been sleeping alot. His appetite is better than it was previously, but his weight is down 4 pounds from last visit. No fever, night sweats, or hot flashes. ECOG score is 1, ENMT - He has some sinus congestion. No mouth sores. No sore throat or difficulty swallowing, Hematologic/Lymphatic - No abnormal bruising or bleeding, Respiratory - No shortness of breath. No cough. No pleuritic pain or hemoptysis, Cardiovascular - No angina pain. No palpitations, Gastrointestinal - He has abdominal pain, but no nausea or vomiting. No heartburn or acid reflux. No diarrhea. He have some occasional constipation, he takes Dulcolax as needed. No blood in the stool or black stools, Genitourinary (M) - No dysuria or hematuria. No urinary frequency. No urgency or incontinence, Musculoskeletal - He continues to have pain in his back, but it is adequately controlled with the 30mg morphine, Integumentary - No skin complications, Neurologic - No headache or dizziness. He had a recent episode of numbness in his left hand. No other focal neurologic symptoms, Psychiatric - He has been having anxiety, including a severe anxiety attack last evening/night. He is having difficultly sleeping in his bed.. Vital Signs: Performed on Oct 14, 2019 10:57 Height - 67.00 in Weight - 226.0 lbs (LOW) BSA - 2.13 sq.m BMI - 35.40 (HIGH) Temperature - 97.0 F (LOW) Pulse - 64 /min Respiration - 22 /min BP - 112/64 mm(hg) O2 Sat - 98 % Pain - 0 Physical Examination: Constitutional - He still appears somewhat weak generally, Eyes - Sclerae nonicteric. Conjunctivae clear, ENMT - No lesions noted in the oral cavity, Hematologic/Lymphatic - No cervical, clavicular, or axillary adenopathy, Respiratory - Lungs are clear with good air movement bilaterally, Cardiovascular - Heart rhythm is regular. There is no murmur, gallop, or rub noted, Abdomen - Soft. He is not significantly tender. Liver and spleen are not enlarged. There is no abdominal mass or ascites noted and there is no inguinal adenopathy, Extremities - No edema, Neurologic - No focal neurologic deficits noted. Impression: 1. Patient with adenocarcinoma involving the body of the pancreas, by clinical evaluation stage IV (T2, N2, M1), including extensive abdominal/retroperitoneal lymphadenopathy and metastatic involvement in the liver. 2. He also had EEG evidence of gastritis. 3. He is having significant anxiety, which is likely situational. His other medical illnesses include: 4. Type 2 diabetes. 5. Hyperlipidemia. Plan: I reviewed the PET/CT findings as well as the findings on his recent EGD and upper EUS. He has confirmed adenocarcinoma involving the body of the pancreas as well as biopsy proven metastatic involvement in a celiac lymph node. By PET/CT there is extensive abdominal and retroperitoneal lymphadenopathy as well as evidence of metastatic disease in the liver. We discussed the fact that his disease is incurable, but there may be treatment options available to help control it. To that end, I will request a next generation sequencing study on his recent biopsy, provided sufficient material is available for analysis. However, the likelihood of finding a targetable mutation and pancreatic cancer is relatively low, and is also not likely to be responsive to immunotherapy. The other treatment option would be a trial of chemotherapy. Given his overall condition, he would not be a suitable candidate for the FOLFINOX regimen. As such, I would recommend a trial of therapy with the gemcitabine/Abraxane combination, as the likelihood of response to single agent gemcitabine is under 20%. I reviewed anticipated side effects with the chemotherapy including the potential for nausea/vomiting, alopecia, fatigue, low blood counts, and neuropathy, among others. As he is interested in attempting treatment for this, I will now arrange for placement of Port-A-Cath venous access device, following that he will return to begin chemotherapy. In the meantime, he will continue immediate release morphine at 30 mg to take as needed. I will have him start citalopram 20 mg daily, I also will increase his lorazepam to 1 mg to take up to 4 times daily as needed for anxiety. Signed By: Nakul Ventura M.D. <<Signature on File>>
== END 2019-10-14 10:27 | disposition home or self-care (01) ==
LOC: ONCMED 10:26
PROVIDERS: PCP Family Medicine; Visit Provider Internal Medicine Medical Oncology
DX: C25.1 Malignant neoplasm of body of pancreas (principal); C77.8 Secondary and unspecified malignant neoplasm of lymph nodes of multiple regions; C78.7 Secondary malignant neoplasm of liver and intrahepatic bile duct; K29.70 Gastritis, unspecified, without bleeding; F41.9 Anxiety disorder, unspecified; E11.9 Type 2 diabetes mellitus without complications; E78.5 Hyperlipidemia, unspecified
CPT/HCPCS: 99214

== ENCOUNTER → 2019-11-06 08:55 | Outpatient (BNVA) | payer MEDICAID, SELFPAY | PROVIDERS: PCP Family Medicine; Visit Provider Internal Medicine | DX: C25.9 Malignant neoplasm of pancreas, unspecified (principal); Z20.828 Contact with and (suspected) exposure to other viral communicable diseases | CPT/HCPCS: 87635 ==

== ENCOUNTER 2019-11-10 06:29 | Day surgery (SDC) | payer MEDICAID, SELFPAY ==
[2019-11-06 10:19] VITALS: BMI 25.1
--- NOTE | 2019-11-10 | SCC_ITS ---
Procedure Done: Right subclavian vein PowerPort placement 8.2 seconds of fluoroscopic guidance, for a cumulative dose of 1.37 mGy, was provided to Dr. Whittaker by the radiology department. C-arm images of the chest were saved for the patient's permanent record. [facility]
[2019-11-10 07:00] VITALS: BP 96/63; PULSE 66; RESP 18; TEMP 36.2; O2SAT 99
--- NOTE | 2019-11-10 07:03 | ANES.PREANE2 ---
Pre-Anesthetic Assessment Pre-Anesthetic Assessment: Height/Weight: Height 1.96 m Weight 96.162 kg Preop Diagnosis: Pancreatic cancer Proposed Procedure: Operation Date: 11/10/19 08:15 Proposed Procedures p Portacath Placement 27904 C25.9(Not Applicable) - Clovis Montenegro MD Familial anesthetic complications: Required supplemental o2 after biopsy Was Beta Julianne taken within 24 hours: N/A Last intake: NPO > 8 hrs Social: Social History: No alcohol and No tobacco Exam: Pre-Anes Outpt Exam: alert, oriented x 3, clear to auscultation bilaterally and regular rate & rhythm Airway: Cervical ROM: WNL MP: 2 Dentition: Full CV/HEM: CV/HEM: HTN Comments: Chest pains Metabolic: Metabolic: DM Comments: pancreatic cancer Neuropsych: Neuropsych: Anxiety and TIA Anesthetic Plan: ASA status: 4 Anesthesia: MAC Risk of > 500 ml blood loss (7ml/kg in children): No PFSH Anesthesia PFSH: Medical History History of inguinal hernia Surgical History History of inguinal hernia repair History of vasectomy Family History Other Cancer Hypertension Denies family history of CAD (coronary artery disease) Anesthesia complication Bleeding disorder Social History Smoking and tobacco status: never smoked Alcohol intake: current Alcohol intake frequency: holidays/special occasions only Lives independently: Yes Marital status: Single Current occupational status: retired History of recent travel: No Data Anesthesia Cardiac Studies: No Data to Display
--- NOTE | 2019-11-10 07:16 | ECG_ITS ---
[facility] Test Date: 2019-11-10 Pat Name: Leonidas Swenson Department: Room: Gender: Male Application Analyst: : 1955 Requested By: Cyn Tomlinson Order Number: [id number] Pham MD: Balbina Foy M.D. Measurements Intervals [place] Rate: 50 P: 31 OH: 236 QRS: -41 QRSD: 99 T: 52 QT: 445 QTc: 407 Interpretive Statements SINUS BRADYCARDIA WITH FIRST DEGREE AV BLOCK MARKED LEFT AXIS DEVIATION [QRS AXIS < -30] Compared to ECG 04/08/2018 17:53:15 First degree AV block now present Sinus rhythm no longer present Electronically Signed On 11-10-2019 17:39:18 CDT by Balbina Foy M.D. [id number]
[2019-11-10] MEDS: sodium chloride 0.9% 1,000 ML 30 ML IV (07:40)
--- NOTE | 2019-11-10 08:11 | W.PM.OPSUD ---
Surgery/Procedure H&P Update DATE OF PROCEDURE: November 10, 2019 DATE H&P PERFORMED: 10/29/19 H&P UPDATE INFORMATION: I have reviewed H&P completed within last 30 days, I have examined patient prior to procedure and No changes to prior documentation PREOP DIAGNOSIS: Pancreatic cancer PRIMARY INDICATION FOR PROCEDURE: The same PLANNED PROCEDURE: Operation Date: 11/10/19 08:15 Proposed Procedures p Portacath Placement 13086 C25.9(Not Applicable) - Clovis Montenegro MD
[2019-11-10] MEDS: heparin, porcine 1,000 unit/mL INJ 10 mL 10000 UNIT XX (08:57)
[2019-11-10] MEDS: lidocaine 2% INJ 20 mL INJECTION (09:10)
--- NOTE | 2019-11-10 09:20 | SC_ITS ---
WS: [id number] INTRAOPERATIVE TECHNIQUE: 2 Spot fluoroscopic images for intraoperative purposes. FLUOROSCOPY TIME: 8.2 seconds CLINICAL INFORMATION: PORTACATH COMPARISON: None. FINDINGS: Right Port-A-Cath with tip partially visualized in the distal SVC. No visualized pneumothorax. SC/C-arm FL for CVA 34602 IMPRESSION: Images obtained for intraoperative purposes.
--- NOTE | 2019-11-10 09:36 | PM.OP ---
Operative Report Date of procedure: November 10, 2019 Pre-op Diagnosis: Pancreatic cancer Post-op diagnosis: same Procedure Done: Right subclavian vein PowerPort placement Implants: Right subclavian vein PowerPort placement Surgeon: Clovis Montenegro Sharepoint Engineer: business office technician [place] Circulating nurse Concha Sullivan Anesthesia: MAC (heating fixture tender Will Smart) Estimated blood loss (mL): 15 Condition: stable Disposition: same day Brief History: This is a pleasant 64 years old gentleman with history of pancreatic cancer requires Port-A-Cath placement . plan of care; After thorough history physical examination and reviewing the chart, I counseled the patient for Port-A-Cath placement, indications, risks including pneumothorax and injury of major vascular structures, benefits,indications and alternatives were all discussed with the patient, patient understands and is interested to proceed. Rationale was carefully and clearly discussed with the patient.Appropriate informed consent have been reviewed and signed. Procedure: Patient was identified in the holding area and taken to the operative room and placed in supine position IV propofol was given by the anesthesia provider ,both arms were tucked,Time-out was done verifying the patient's name/date of /planned procedure and destination after the procedure, all were in agreement. SCDs confirmed to be functioning, preoperative antibiotics administered per protocol, and beta [place] protocol was confirmed, appropriate positioning of the patient was done by me. Medications were reviewed to assess for anticoagulant usage. Risks and benefits and prevention of central line associated blood stream infection (CLABSI) were discussed with the patient/CPOA, and a consent was obtained. Monitors were in place and monitored throughout the procedure. All necessary supplies were available prior to start. Hand hygiene was completed prior to starting. Maximum barrier technique was utilized including a sterile gown, sterile gloves with a hat and mask. Site was was prepped with [chlorhexidine] and a full body drape was placed. 5 mL of 2% lidocaine was injected into the skin with a 25 gauge needle. Prep& drape was done under the usual sterile technique, lidocaine 2% was injected at the site of the stick, started by right subclavian stick that retrieved venous blood was obtained from the first stick, a guidewire was then threaded and under the guidance of fluoroscopy position was confirmed to be in the IVC and my interpretation, there was no PVC changes, at that point the guidewire was secured to the drapes with a hemostat and the needle was taken out, attention was then deviated towards creation of a pocket for the port were lidocaine 2% was injected using an 15 blade knife skin incision was created dissection using the Bovie to create a pocket for the Port-A-Cath to be accommodated, hemostasis was secured, after the port being appropriately flushed it was inserted into the pocket and a tunneler was used to accommodate the catheter of the port cath to be delivered through the incision first created at the site of the stick, at that point under fluoroscopy an estimated length was measured for the catheter and was cut at the designed level, followed by that a dilator with the sheath introduced onto the guidewire the dilator and the wire were retrieved and the catheter of the port was introduced via the sheath where it was peeled off and the catheter maintained to be in the SVC that was confirmed with fluoroscopy, and the fluoroscopy interpretation was done by me throughout the entire procedure. The port was kept in its pocket, 3-0 Vicryl deep subdermal interrupted sutures, skin was then closed by 4-0 Monocryl as subcuticular closure. The stick site was closed by 4-0 Monocryl and Dermabond was used followed by dressing. Patient tolerated the procedure well was taken to the recovery area Count was correct at the end of the procedure I was present for the whole entire procedure Position of the catheter was checked with a postoperative chest x-ray and it was in good position without evidence of pneumothorax
--- NOTE | 2019-11-10 09:41 | XRR_ITS ---
PROCEDURE INFORMATION: Exam: XR Chest, 1 View Exam date and time: 11/10/2019 9:53 AM Age: 64 years old Clinical indication: Device placement; Other: Status post right subclavian vein powerport placement; Prior surgery; Surgery date: Post-operative (0-2 days) TECHNIQUE: Imaging protocol: XR of the chest Views: 1 view. COMPARISON: CR Chest 1 [place] [id number] 04/08/2018 3:06 PM FINDINGS: Lungs: Emphysema Lungs are well aerated without a focal area of consolidation. Pleural space: Unremarkable. No pleural effusion. No pneumothorax. Heart/Mediastinum: Unremarkable. No cardiomegaly. Vasculature: Central venous catheter via the right subclavian approach with the tip projecting over the atrium. Bones/joints: Unremarkable. XR/XR chest 1V portable [id number] IMPRESSION: Lungs are well aerated without a focal area of consolidation.
[2019-11-10 09:45] VITALS: BP 120/71; PULSE 53; RESP 16; TEMP 36.6; O2SAT 98
[2019-11-10 09:59] VITALS: BP 149/83; PULSE 47; RESP 18; O2SAT 98
--- NOTE | 2019-11-10 10:20 | ANE.PACU2 ---
Inpatient post-anesthesia follow up: Airway intact: Yes Vital signs: Temperature 97.9 F Pulse Rate 47 Respiratory Rate 18 Blood Pressure 149/83 Pulse Oximetry 98 Oxygen Delivery Me thod Room Air Oxygen Flow Rate Fraction of Inspir ed Oxygen Hydration adequate: Yes Nausea and vomiting: No Pain level: 2 Mental status: Baseline
== END 2019-11-10 10:20 | disposition home or self-care (01) ==
PROVIDERS: PCP Family Medicine; Visit Provider Surgery
PROC: (CPT 36561; principal; 2019-11-10 08:15)
DX: C25.9 Malignant neoplasm of pancreas, unspecified (principal); I10 Essential (primary) hypertension; E11.9 Type 2 diabetes mellitus without complications; Z79.82 Long term (current) use of aspirin; Z79.84 Long term (current) use of oral hypoglycemic drugs
CPT/HCPCS: 36561; 12345; 71045; 77001; 93005; C1788; J0690; J1644; J3010; J7030

== ENCOUNTER 2019-11-18 10:28 | Outpatient (CLI) | payer MEDICAID, SELFPAY ==
[2019-11-18 11:11] LABS: Basophils # 0.1 10^3/uL (0.0-0.1); Basophils % 1.2 %; Eosinophils # 0.3 10^3/uL (0.0-0.8); Eosinophils % 6.2 %; Hematocrit 33.7 % (42.0-52.0); Hemoglobin 10.9 g/dL (11.7-16.6); Lymphocytes # 0.7 10^3/uL (0.8-4.8); Lymphocytes % 16.6 %; Mean Corpuscular HGB Conc 32.3 g/dL (30.0-36.0); Mean Corpuscular Hemoglobin 28.2 pg (28.0-34.0); Mean Corpuscular Volume 87.1 fL (80-94); Mean Platelet Volume 9.6 fL (7.4-10.4); Monocytes # 0.4 10^3/uL (0.2-0.9); Monocytes % 8.1 %; Neutrophils # 2.93 10^3/uL (1.8-7.7); Neutrophils % 67.7 %; Nucleated Red Blood Cells % 0 %; Platelet Count 197 10^3/cmm (130-400); Red Blood Count 3.87 10^6/uL (4.1-5.3); Red Cell Distribution Width 12.8 % (12.1-15.1); White Blood Count 4.3 10^3/uL (4.0-10.0)
[2019-11-18 11:35] LABS: Alanine Aminotransferase 11 U/L (0-41); Albumin Level 4.2 g/dL (3.5-5.2); Alkaline Phosphatase 69 IU/L (40-130); Anion Gap 12.9 (5-19); Aspartate Amino Transferase 14 U/L (0-40); Blood Urea Nitrogen 13 mg/dL (8-23); Calcium 9.1 mg/dL (8.5-10.5); Carbon Dioxide 27 mmol/L (22-29); Chloride 100 mmol/L (98-107); Globulin 2.9 g/dL (1.3-4.6); Glomerular Filtration Rate 97.6 mL/min (90-130); Glucose 95 mg/dL (65-115); Osmolality Calculated 278 mOsm/kg (285-295); Potassium 3.9 mmol/L (3.5-5.1); Sodium 136 mmol/L (136-145); Total Bilirubin 0.4 mg/dL (0.15-1.2); Total Protein 7.1 g/dL (6.6-8.7)
[2019-11-18] MEDS: sodium chloride 0.9% 250 ML 75 ML IV (12:40)
--- NOTE | 2019-11-23 10:37 | ONC FU_ITS ---
Dr. Ventura Patient Follow-Up Note Patient: Leonidas Swenson Unit #: [id number]: [id number] Dicatated By: Nakul Ventura M.D.Date of Visit:Nov 18, 2019 Onc Med Follow-up/Prog Note Chief Complaint: Pancreatic cancer. History of Present Illness: This is a 64 year-old man had been seen initially with celiac axis, aortocaval, and retroperitoneal lymphadenopathy. He now has been confirmed to have pancreatic adenocarcinoma. He has type 2 diabetes and hyperlipidemia. Sometime within the past year or so he began having pain in his stomach and back. The pain gradually worsened, and he developed additional symptoms including anorexia, postprandial vomiting, and progressive weakness. He has had weight loss in the range of 40 pounds over a period of 3 months. 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 On 07/25/2019 he presented to the emergency room with abdominal pain. His CT abdomen/pelvis showed the pancreatic tail to be either absent or very atrophic. Pancreatic body was noted to be mildly hypodense, but the appearance was nonspecific. Prominent lymph nodes were noted, including a 2 x 1.4 cm peripancreatic lymph node as well as prominent retroperitoneal para-aortic lymph nodes. The lipase was normal. Further evaluation with cholangiopancreatography MRI on 08/06/2019 showed normal signal within the pancreas with mildly truncated distal pancreas, felt to be likely a normal variant. 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 The gallbladder showed no abnormal findings. He was seen in the ER again on 08/17/2019. CT abdomen/pelvis showed similar findings. Abdominal MRI on 08/31/2019 reported abnormal signal within the body and distal pancreas, but without evidence of enhancing mass. Again noted was aortocaval and periaortic adenopathy with the largest aortocaval node measuring 1.7 cm and a cluster of enlarged periaortic lymph nodes measuring 2.0 cm. An additional lymph node or other celiac axis measure 2.2 cm. MRI of the lumbar spine on 09/02/2019 showed degenerative changes at multiple levels, but no lytic bone disease or other evidence of malignancy. I had seen him initially on 09/07/2019. He then had further evaluation with PET/CT on 09/12/2019. It showed a 3.2 x 6.8 cm region of abnormal activity within the mid pancreas with SUV 7.0, consistent with primary pancreatic carcinoma. There was extensive FDG positive upper abdominal lymphadenopathy and there was an enlarged celiac lymph node measuring 2.9 cm with SUV 8.4, consistent with local metastatic disease. There is additional bilateral FDG avid lymph nodes, scattered FDG avid mesenteric lymph nodes, and FDG avid hepatic lesions, all consistent with metastatic disease. With those findings, he was referred to Dr. Deon Calderon at [facility]. He had further evaluation with EGD and upper abdominal EUS on 10/08/2019. The EGD did show some evidence of gastritis with negative gastric biopsy for helicobacter pylori. The upper EUS showed a 32.4 x 35.3 mm hypoechoic irregular mass in the body of the pancreas and a 24.8 x 25.5 mm hypoechoic ovoid celiac lymph node, both of which were evaluated with FNA biopsy. Pathology was positive for adenocarcinoma at both sites. I had seen him for a follow-up visit on 10/14/2019. At that point he indicated that he was interested in undergoing a trial of palliative chemotherapy, though with the understanding that the likelihood of benefit would be relatively low and that there would be potential for treatment related toxicity. He has since undergone placement of Port-A-Cath venous access device. He returns now for his first cycle of treatment. He has generally weak and he does not have much activity. He is mostly lying around. His ECOG score is 3. He is having difficulty eating. His weight is down another 12 pounds. He does not have fever or night sweats. He has no shortness of breath, cough, or chest pain. He has having nausea. Bowel and bladder function have been adequate. He does have pain in the abdomen and back, but it is being managed adequately with morphine. He does not complain of headache or dizziness. He has no focal neurologic symptoms. Medications: Aspirin 1 Tablet (of 81 mg) Tablet, enteric coated Oral daily, CeleXA 1 Tablet (of 20 mg) Oral daily, Cinnamon 1 Capsule Oral daily, Fish Oil 1 Capsule Oral daily, glipiZIDE XL 1 Tablet (of 5 mg) Tablet SR 24 HR Oral daily, Januvia 1 Tablet (of 100 mg) Oral daily, Lisinopril 1 Tablet (of 5 mg) Oral daily, LORazepam 1 Tablet (of 0.5 mg) Oral 6x/d, metFORMIN HCl 1 Tablet (of 1000 mg) Oral b.i.d., Morphine Sulfate 1 Tablet (of 15 mg) Oral q 4 hours PRN, Multivitamin Adult 1 Tablet Oral daily, traMADol HCl 1 Tablet (of 50 mg) Oral q 6 hours PRN Allergies: No Known Allergies. Review of Systems: Constitutional - He has little energy, he is mostly in bed. His appetite is very poor and his weight is down another 14 pounds. No fever, night sweats, or hot flashes. ECOG score is 3, ENMT - No sinus congestion/drainage. No mouth sores. No sore throat or difficulty swallowing, Hematologic/Lymphatic - No abnormal bruising or bleeding, Respiratory - No shortness of breath. No cough. No pleuritic pain or hemoptysis, Cardiovascular - No angina pain. No palpitations, Gastrointestinal - He has some nausea. No vomiting. His heartburn is adequately managed with pantoprazole. No diarrhea or constipation. No blood in the stool or black stools. He is having lower abdominal pain, it gets worse with and after meals, Genitourinary (M) - No dysuria or hematuria. No urinary frequency. No urgency or incontinence, Musculoskeletal - His back pain is better with the morphine 30 mg, Integumentary - No skin complications, Neurologic - No headache or dizziness. No numbness or tingling. No other focal neurologic symptoms, Psychiatric - No anxiety or depression. No insomnia. Vital Signs: Performed on Nov 18, 2019 12:04 Height - 67.00 in Weight - 214.6 lbs (LOW) BSA - 2.08 sq.m BMI - 33.61 (HIGH) Temperature - 97.3 F (LOW) Pulse - 60 /min Respiration - 18 /min BP - 127/75 mm(hg) O2 Sat - 100 % Pain - 0 Physical Examination: Constitutional - He appears generally weak. He has noticeable weight loss, Eyes - Sclerae nonicteric. Conjunctivae clear, ENMT - No lesions noted in the oral cavity, Hematologic/Lymphatic - No cervical, clavicular, or axillary adenopathy, Respiratory - Lungs are clear with good air movement bilaterally, Cardiovascular - Heart rhythm is regular. There is no murmur, gallop, or rub noted, Abdomen - Soft. Liver and spleen are not enlarged. There is no abdominal mass or ascites noted and there is no inguinal adenopathy, Extremities - No edema, Neurologic - No focal neurologic deficits noted. Lab/Imaging: Test performed on Nov 18, 2019 10:44 Sodium 136 mmol/L Potassium 3.9 mmol/L Chloride 100 mmol/L CO2 27 mmol/L Anion Gap 12.9 BUN 13 mg/dL Creatinine 0.8 mg/dL Cr Clearance (Est) 137.0400 mL/min eGFR 97.6 mL/min Glucose 95 mg/dL Osmolality - Calculated 278 mOsm/kg Calcium 9.1 mg/dL Protein, Total 7.1 g/dL Albumin 4.2 g/dL Globulin 2.9 g/dL Bilirubin, Total 0.4 mg/dL ALT (SGPT) 11 U/L AST (SGOT) 14 U/L Alkaline Phosphatase 69 IU/L WBC 4.3 10 3/uL RBC 3.87 10 6/uL HGB 10.9 g/dL HCT 33.7 % MCV 87.1 fL MCH 28.2 pg MCHC 32.3 g/dL RDW 12.8 % Platelet Count 197 10 3/cmm MPV 9.6 fL Neutrophils 2.93 10 3/uL Lymphocytes 0.7 10 3/uL Monocytes 0.4 10 3/uL Eosinophils 0.3 10 3/uL Basophils 0.1 10 3/uL Neutrophil % 67.7 % Lymphocyte % 16.6 % Monocyte % 8.1 % Eosinophil % 6.2 % Basophils % 1.2 % NRBC % 0 % CA 19-9 14.20 U/mL Impression: 1. Patient with adenocarcinoma involving the body of the pancreas, by clinical evaluation stage IV (T2, N2, M1), including extensive abdominal/retroperitoneal lymphadenopathy and metastatic involvement in the liver. 2. He also had EEG evidence of gastritis. 3. He is having significant anxiety, which is likely situational. His other medical illnesses include: 4. Type 2 diabetes. 5. Hyperlipidemia. Plan: He will begin cycle 1 of palliative chemotherapy with gemcitabine/Abraxane. I reviewed anticipated side effects including the potential for nausea/vomiting, alopecia, fatigue, low blood counts, and neuropathy, among others. As he is having nausea and difficulty eating, I will have him start Compazine 10 mg with Marinol 5 mg twice daily. He also will have lorazepam available to take as needed. He will continue MSIR 30 mg as needed for pain. He returns in 1 week. Signed By: Nakul Ventura M.D. <<Signature on File>>
== END 2019-11-18 10:29 | disposition home or self-care (01) ==
LOC: ONCMED 10:29
PROVIDERS: PCP Family Medicine; Visit Provider Internal Medicine Medical Oncology
DX: Z51.11 Encounter for antineoplastic chemotherapy (principal); C25.1 Malignant neoplasm of body of pancreas; R59.0 Localized enlarged lymph nodes; K29.70 Gastritis, unspecified, without bleeding; F41.9 Anxiety disorder, unspecified; E11.9 Type 2 diabetes mellitus without complications; E78.5 Hyperlipidemia, unspecified
CPT/HCPCS: 80053; 85025; 86301; 96367; 96413; 96417; 99214; J1100; J2469; J3490; J7050; J9201; J9264

== ENCOUNTER 2019-12-02 05:33 | Outpatient (RCR) | payer MEDICAID, SELFPAY ==
[2019-11-25 09:57] LABS: Basophils % 1.6 %; Eosinophils # 0.1 10^3/uL (0.0-0.8); Eosinophils % 6.2 %; Hematocrit 32.5 % (42.0-52.0); Hemoglobin 10.4 g/dL (11.7-16.6); Lymphocytes # 0.6 10^3/uL (0.8-4.8); Lymphocytes % 31.1 %; Mean Corpuscular Hemoglobin 28.3 pg (28.0-34.0); Mean Corpuscular Volume 88.3 fL (80-94); Mean Platelet Volume 9.5 fL (7.4-10.4); Monocytes # 0.2 10^3/uL (0.2-0.9); Monocytes % 8.8 %; Neutrophils # 1.01 10^3/uL (1.8-7.7); Neutrophils % 52.3 %; Nucleated Red Blood Cells % 0 %; Platelet Count 157 10^3/cmm (130-400); Red Blood Count 3.68 10^6/uL (4.1-5.3); Red Cell Distribution Width 12.4 % (12.1-15.1); White Blood Count 1.9 10^3/uL (4.0-10.0)
[2019-11-25 10:11] LABS: Alanine Aminotransferase 8 U/L (0-41); Alkaline Phosphatase 73 IU/L (40-130); Anion Gap 12.3 (5-19); Aspartate Amino Transferase 10 U/L (0-40); Blood Urea Nitrogen 11 mg/dL (8-23); Calcium 10.4 mg/dL (8.5-10.5); Carbon Dioxide 28 mmol/L (22-29); Chloride 99 mmol/L (98-107); Globulin 2.9 g/dL (1.3-4.6); Glomerular Filtration Rate 75.5 mL/min (90-130); Glucose 182 mg/dL (65-115); Osmolality Calculated 284 mOsm/kg (285-295); Potassium 4.3 mmol/L (3.5-5.1); Sodium 135 mmol/L (136-145); Total Bilirubin 0.4 mg/dL (0.15-1.2); Total Protein 6.9 g/dL (6.6-8.7)
[2019-12-02 09:52] LABS: Basophils % 0.7 %; Eosinophils # 0.3 10^3/uL (0.0-0.8); Eosinophils % 6.2 %; Hematocrit 33.9 % (42.0-52.0); Hemoglobin 10.8 g/dL (11.7-16.6); Lymphocytes # 0.7 10^3/uL (0.8-4.8); Lymphocytes % 15.4 %; Mean Corpuscular HGB Conc 31.9 g/dL (30.0-36.0); Mean Corpuscular Hemoglobin 28.4 pg (28.0-34.0); Mean Corpuscular Volume 89.2 fL (80-94); Mean Platelet Volume 9.5 fL (7.4-10.4); Monocytes # 0.4 10^3/uL (0.2-0.9); Neutrophils # 3.07 10^3/uL (1.8-7.7); Neutrophils % 67.4 %; Nucleated Red Blood Cells % 0 %; Platelet Count 208 10^3/cmm (130-400); Red Cell Distribution Width 13.5 % (12.1-15.1); White Blood Count 4.6 10^3/uL (4.0-10.0)
[2019-12-02 10:08] LABS: Alanine Aminotransferase 10 U/L (0-41); Alkaline Phosphatase 83 IU/L (40-130); Anion Gap 14.2 (5-19); Aspartate Amino Transferase 13 U/L (0-40); Blood Urea Nitrogen 9 mg/dL (8-23); Calcium 9.7 mg/dL (8.5-10.5); Carbon Dioxide 26 mmol/L (22-29); Chloride 101 mmol/L (98-107); Globulin 2.8 g/dL (1.3-4.6); Glomerular Filtration Rate 85.2 mL/min (90-130); Glucose 150 mg/dL (65-115); Osmolality Calculated 286 mOsm/kg (285-295); Potassium 4.2 mmol/L (3.5-5.1); Sodium 137 mmol/L (136-145); Total Bilirubin 0.3 mg/dL (0.15-1.2); Total Protein 6.8 g/dL (6.6-8.7)
[2019-12-02] MEDS: sodium chloride 0.9% 250 ML 75 ML IV (12:45)
[2019-12-02] MEDS: pegfilgrastim 6 mg/0.6 mL Kit (onpro) SUBCUT (15:15)
--- NOTE | 2019-12-04 07:54 | ONC FU_ITS ---
[facility] Patient Note Patient: Leonidas Swenson Unit #: [id number]: 1955 Dictated By: Cayden NoeDate of Visit: Nov 25, 2019 Onc MED Follow-Up/Prog Note Chief Complaint: Pancreatic cancer. History of Present Illness: Mr Swenson is a 64 year-old man had been seen initially with celiac axis, aortocaval, and retroperitoneal lymphadenopathy. He now has been confirmed to have pancreatic adenocarcinoma. He has type 2 diabetes and hyperlipidemia. Sometime within the past year or so he began having pain in his stomach and back. The pain gradually worsened, and he developed additional symptoms including anorexia, postprandial vomiting, and progressive weakness. He has had weight loss in the range of 40 pounds over a period of 3 months. 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 On 07/25/2019 he presented to the emergency room with abdominal pain. His CT abdomen/pelvis showed the pancreatic tail to be either absent or very atrophic. Pancreatic body was noted to be mildly hypodense, but the appearance was nonspecific. Prominent lymph nodes were noted, including a 2 x 1.4 cm peripancreatic lymph node as well as prominent retroperitoneal para-aortic lymph nodes. The lipase was normal. Further evaluation with cholangiopancreatography MRI on 08/06/2019 showed normal signal within the pancreas with mildly truncated distal pancreas, felt to be likely a normal variant. 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 The gallbladder showed no abnormal findings. He was seen in the ER again on 08/17/2019. CT abdomen/pelvis showed similar findings. Abdominal MRI on 08/31/2019 reported abnormal signal within the body and distal pancreas, but without evidence of enhancing mass. Again noted was aortocaval and periaortic adenopathy with the largest aortocaval node measuring 1.7 cm and a cluster of enlarged periaortic lymph nodes measuring 2.0 cm. An additional lymph node or other celiac axis measure 2.2 cm. MRI of the lumbar spine on 09/02/2019 showed degenerative changes at multiple levels, but no lytic bone disease or other evidence of malignancy. Dr Ventura had seen him initially on 09/07/2019. He then had further evaluation with PET/CT on 09/12/2019. It showed a 3.2 x 6.8 cm region of abnormal activity within the mid pancreas with SUV 7.0, consistent with primary pancreatic carcinoma. There was extensive FDG positive upper abdominal lymphadenopathy and there was an enlarged celiac lymph node measuring 2.9 cm with SUV 8.4, consistent with local metastatic disease. There is additional bilateral FDG avid lymph nodes, scattered FDG avid mesenteric lymph nodes, and FDG avid hepatic lesions, all consistent with metastatic disease. With those findings, he was referred to Dr. Deon Calderon at [facility]. He had further evaluation with EGD and upper abdominal EUS on 10/08/2019. The EGD did show some evidence of gastritis with negative gastric biopsy for helicobacter pylori. The upper EUS showed a 32.4 x 35.3 mm hypoechoic irregular mass in the body of the pancreas and a 24.8 x 25.5 mm hypoechoic ovoid celiac lymph node, both of which were evaluated with FNA biopsy. Pathology was positive for adenocarcinoma at both sites. Dr Ventura had seen him for a follow-up visit on 10/14/2019. At that point he indicated that he was interested in undergoing a trial of palliative chemotherapy, though with the understanding that the likelihood of benefit would be relatively low and that there would be potential for treatment related toxicity. He has since undergone placement of Port-A-Cath venous access device. He began his first cycle of treatment on 11/18/2019. Mr. Swenson is here today for follow-up. He is due for day 8 Abraxane gemcitabine. He states overall he feels okay. He is eating some better. His nausea has improved but still has some nausea at times. He denies any vomiting. He denies diarrhea or constipation. He has not had any fever or night sweats. He has no shortness of breath, cough, or chest pain. He denies any symptoms of COVID-19, known exposure or personal COVID-19 testing. He does have pain in the abdomen and back, but it is being managed adequately with morphine. He states it is currently stable. He denies any neuropathy symptoms. His weight is down 4 pounds today. His ECOG is 2. Past Medical History: Hyperlipidemia Type II diabetes Past Surgical History: Biopsy of pancreas Lasik eye surgery bilaterally Right inguinal hernia repair Vasectomy Allergies: No Known Allergies. Medications: Aspirin 1 Tablet (of 81 mg) Tablet, enteric coated Oral daily CeleXA 1 Tablet (of 20 mg) Oral daily Cinnamon 1 Capsule Oral daily Fish Oil 1 Capsule Oral daily glipiZIDE XL 1 Tablet (of 5 mg) Tablet SR 24 HR Oral daily Januvia 1 Tablet (of 100 mg) Oral daily Lisinopril 1 Tablet (of 5 mg) Oral daily LORazepam 1 Tablet (of 0.5 mg) Oral 6x/d metFORMIN HCl 1 Tablet (of 1000 mg) Oral b.i.d. Morphine Sulfate 1 Tablet (of 15 mg) Oral q 4 hours PRN Multivitamin Adult 1 Tablet Oral daily traMADol HCl 1 Tablet (of 50 mg) Oral q 6 hours PRN Family History: Mr. Swenson's mother is alive. Mr. Swenson's father at age 52: bone cancer. Mother is still living at age 82. Father at age 52 with cancer involving his jawbone. He has six siblings, all apparently in good health. 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 Mr. Swenson has never smoked. He has no history of drinking. Mr. Swenson reports the following support systems: lives alone, lives in own house, supportive family/friends willing to assist with needs, and transportation problems exist and will require assistance. His diet consists of regular meals. He indicates his activity level as: regular exercise. 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 He has not been able to work due to this illness. He is a nonsmoker. He does not drink alcohol. Review Of Symptoms: Constitutional Denies fevers, chills, night sweats, excessive fatigue. Still loosing weight. Allergic/Immunologic No reactions. Eyes Denies significant visual changes. No diplopia. No amaurosis. ENMT Denies changes in hearing, sore throat, mouth sores, difficulty or changes in swallowing ability, and/or sinus drainage. Hematologic/Lymphatic Denies easy bruising or bleeding. The patient denies any tender or palpable lymph nodes. Respiratory Denies dyspnea on exertion, chest pain, cough or hemoptysis. Denies orthopnea. Cardiovascular Denies anginal chest pain, palpitations or orthopnea. Gastrointestinal Denies worsening nausea. He denies any vomiting, diarrhea, GI bleeding, or constipation. Denies change in bowel habits and/or stool color, no heartburn or early satiety. Genitourinary (M) Denies hematuria, dysuria, increased frequency, urgency, hesitancy or incontinence. Musculoskeletal Denies joint pain, swelling or redness. No decreased range of motion. Integumentary Denies chronic rashes, inflammation, ulcerations or skin changes. Neurologic Denies headache, blurred vision, and no areas of focal weakness or numbness. Normal gait. No sensory problems. Psychiatric Denies insomnia, depression, osiris or mood swings. Vital Signs: Performed on Nov 25, 2019 10:43 Height - 67.00 in Weight - 209.8 lbs (LOW) BSA - 2.06 sq.m BMI - 32.86 (HIGH) Temperature - 97.8 F (LOW) Pulse - 64 /min Respiration - 22 /min BP - 115/73 mm(hg) O2 Sat - 99 % Pain - 0,1 - No physically strenuous activity, but ambulatory and able to carry out light or sedentary work (e.g. office work, light house work). (ECOG) Physical Examination: Constitutional Alert, oriented, no acute distress. Skin pink, warm and dry. Head Normocephalic; atraumatic. Eyes Conjunctivae and sclerae are clear and without icterus. Pupils are reactive and equal. Neck Supple without masses or thyromegaly. No jugular venous distension. Back/Spine Non-tender to palpation. Extremities No visible deformities, no cyanosis, clubbing or edema. Musculoskeletal No tenderness or swelling, normal range of motion without obvious weakness. Integumentary No rashes or lesions. Neurologic No sensory or motor deficits, normal cerebellar function, normal gait. Psychiatric Alert and oriented times three. Coherent speech. Verbalizes understanding of our discussions today. Laboratory:Test performed on Dec 02, 2019 09:25 Sodium 137 mmol/L Potassium 4.2 mmol/L Chloride 101 mmol/L CO2 26 mmol/L Anion Gap 14.2 BUN 9 mg/dL Creatinine 0.9 mg/dL Cr Clearance (Est) 121.8100 mL/min eGFR 85.2 mL/min Glucose 150 mg/dL Osmolality - Calculated 286 mOsm/kg Calcium 9.7 mg/dL Protein, Total 6.8 g/dL Albumin 4.0 g/dL Globulin 2.8 g/dL Bilirubin, Total 0.3 mg/dL ALT (SGPT) 10 U/L AST (SGOT) 13 U/L Alkaline Phosphatase 83 IU/L WBC 4.6 10 3/uL RBC 3.80 10 6/uL HGB 10.8 g/dL HCT 33.9 % MCV 89.2 fL MCH 28.4 pg MCHC 31.9 g/dL RDW 13.5 % Platelet Count 208 10 3/cmm MPV 9.5 fL Neutrophils 3.07 10 3/uL Lymphocytes 0.7 10 3/uL Monocytes 0.4 10 3/uL Eosinophils 0.3 10 3/uL Basophils 0.0 10 3/uL Neutrophil % 67.4 % Lymphocyte % 15.4 % Monocyte % 9.0 % Eosinophil % 6.2 % Basophils % 0.7 % NRBC % 0 % Test performed on Nov 18, 2019 10:44 CA 19-9 14.20 U/mL Test performed on Sep 07, 2019 15:50 CEA 19.9 ng/mL Impression: 1. Patient with adenocarcinoma involving the body of the pancreas, by clinical evaluation stage IV (T2, N2, M1), including extensive abdominal/retroperitoneal lymphadenopathy and metastatic involvement in the liver. 2. He also had EGD evidence of gastritis. 3. He is having significant anxiety, which is likely situational. His other medical illnesses include: 4. Type 2 diabetes. 5. Hyperlipidemia. Mr. Cm begin palliative chemotherapy with gemcitabine Abraxane on November 18, 2019. He presents today with chemo induced neutropenia with an ANC of 1000. Plan: 1. We will hold day 8 cycle 1 Abraxane gemcitabine due to neutropenia. His ANC today is 1000. Was 2930 last week. 2. We have reinforced Compazine and Marinol for treatment of nausea as well as decreased appetite. 3. Labs from November 25, 2019 reviewed in detail discussed with Mr. Swenson and a copy was given to him. WBC 1.9, hemoglobin 10.4, platelets 157,000 ANC is 1000 potassium 4.3 random glucose 182 creatinine 1.0 LFTs are normal. His CA-19-9 on November 18, 2019 was 14.2. His CEA on September 07, 2019 was 19.9. 3. We will ask for prior authorization for Neupogen 480 mcg 2 doses for chemotherapy-induced neutropenia. 4. We will asked for him to return in 1 week. We will plan for dose reduction and change his regimen frequency from day 1 8, and 15 2 days 1 and 15. 5. We will asked him instructed to return in 1 week with CBC CMP and follow-up. 6. Mr. Swenson was instructed to contact us in the interim should questions or problems arise. Signed By: Cayden Noe-, [facility] Nakul Ventura MD <<Signature on File>>
--- NOTE | 2019-12-06 23:08 | ONC FU_ITS ---
[facility] Patient Note Patient: Leonidas Swenson Unit #: [id number]: 1955 Dictated By: Cayden NoeDate of Visit: Dec 02, 2019 Onc MED Follow-Up/Prog Note Chief Complaint: Pancreatic cancer. History of Present Illness: Mr Swenson is a 64 year-old man had been seen initially with celiac axis, aortocaval, and retroperitoneal lymphadenopathy. He now has been confirmed to have pancreatic adenocarcinoma. He has type 2 diabetes and hyperlipidemia. Sometime within the past year or so he began having pain in his stomach and back. The pain gradually worsened, and he developed additional symptoms including anorexia, postprandial vomiting, and progressive weakness. He has had weight loss in the range of 40 pounds over a period of 3 months. 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 On 07/25/2019 he presented to the emergency room with abdominal pain. His CT abdomen/pelvis showed the pancreatic tail to be either absent or very atrophic. Pancreatic body was noted to be mildly hypodense, but the appearance was nonspecific. Prominent lymph nodes were noted, including a 2 x 1.4 cm peripancreatic lymph node as well as prominent retroperitoneal para-aortic lymph nodes. The lipase was normal. Further evaluation with cholangiopancreatography MRI on 08/06/2019 showed normal signal within the pancreas with mildly truncated distal pancreas, felt to be likely a normal variant. 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 The gallbladder showed no abnormal findings. He was seen in the ER again on 08/17/2019. CT abdomen/pelvis showed similar findings. Abdominal MRI on 08/31/2019 reported abnormal signal within the body and distal pancreas, but without evidence of enhancing mass. Again noted was aortocaval and periaortic adenopathy with the largest aortocaval node measuring 1.7 cm and a cluster of enlarged periaortic lymph nodes measuring 2.0 cm. An additional lymph node or other celiac axis measure 2.2 cm. MRI of the lumbar spine on 09/02/2019 showed degenerative changes at multiple levels, but no lytic bone disease or other evidence of malignancy. I had seen him initially on 09/07/2019. He then had further evaluation with PET/CT on 09/12/2019. It showed a 3.2 x 6.8 cm region of abnormal activity within the mid pancreas with SUV 7.0, consistent with primary pancreatic carcinoma. There was extensive FDG positive upper abdominal lymphadenopathy and there was an enlarged celiac lymph node measuring 2.9 cm with SUV 8.4, consistent with local metastatic disease. There is additional bilateral FDG avid lymph nodes, scattered FDG avid mesenteric lymph nodes, and FDG avid hepatic lesions, all consistent with metastatic disease. With those findings, he was referred to Dr. Deon Calderon at [facility]. He had further evaluation with EGD and upper abdominal EUS on 10/08/2019. The EGD did show some evidence of gastritis with negative gastric biopsy for helicobacter pylori. The upper EUS showed a 32.4 x 35.3 mm hypoechoic irregular mass in the body of the pancreas and a 24.8 x 25.5 mm hypoechoic ovoid celiac lymph node, both of which were evaluated with FNA biopsy. Pathology was positive for adenocarcinoma at both sites. Dr Ventura had seen him for a follow-up visit on 10/14/2019. At that point he indicated that he was interested in undergoing a trial of palliative chemotherapy, though with the understanding that the likelihood of benefit would be relatively low and that there would be potential for treatment related toxicity. He has since undergone placement of Port-A-Cath venous access device. He began his first cycle on November 18, 2019. His day 8 treatment was held due to chemo induced neutropenia his ANC on day 8 was 1000. He was given 2 doses of Neupogen and is here today for reassessment. He states he is still weak and he isn't doing much activity. He states he is doing more activity around the house although he tires easily. He is in bed and resting less than he was 2 weeks ago. He denies any fever or chills. He has had no signs of symptoms of infection for at least the last 72 hours. He denies any known COVID exposure, symptoms or personal testing. His nausea is better and he is eating better. His pain is controlled with the morphine. He denies any new concerns today. He has had no diarrhea or constipation. His bowels and are normal for him. He denies any neuropathy symptoms. His ECOG is 2. Past Medical History: Hyperlipidemia Type II diabetes Past Surgical History: Biopsy of pancreas Lasik eye surgery bilaterally Right inguinal hernia repair Vasectomy Allergies: No Known Allergies. Medications: Aspirin 1 Tablet (of 81 mg) Tablet, enteric coated Oral daily CeleXA 1 Tablet (of 20 mg) Oral daily Cinnamon 1 Capsule Oral daily Fish Oil 1 Capsule Oral daily glipiZIDE XL 1 Tablet (of 5 mg) Tablet SR 24 HR Oral daily Januvia 1 Tablet (of 100 mg) Oral daily Lisinopril 1 Tablet (of 5 mg) Oral daily LORazepam 1 Tablet (of 0.5 mg) Oral 6x/d metFORMIN HCl 1 Tablet (of 1000 mg) Oral b.i.d. Morphine Sulfate 1 Tablet (of 15 mg) Oral q 4 hours PRN Multivitamin Adult 1 Tablet Oral daily traMADol HCl 1 Tablet (of 50 mg) Oral q 6 hours PRN Family History: Mr. Swenson's mother is alive. Mr. Swenson's father at age 52: bone cancer. Mother is still living at age 82. Father at age 52 with cancer involving his jawbone. He has six siblings, all apparently in good health. 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 Mr. Swenson has never smoked. He has no history of drinking. Mr. Swenson reports the following support systems: lives alone, lives in own house, supportive family/friends willing to assist with needs, and transportation problems exist and will require assistance. His diet consists of regular meals. He indicates his activity level as: regular exercise. 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 He has not been able to work due to this illness. He is a nonsmoker. He does not drink alcohol. Review Of Symptoms: Constitutional Denies fevers, chills, night sweats, excessive fatigue. Weight is better-up 2.2 pounds since last visit. Allergic/Immunologic No reactions. Eyes Denies significant visual changes. No diplopia. No amaurosis. ENMT Denies changes in hearing, sore throat, mouth sores, difficulty or changes in swallowing ability, and/or sinus drainage. Hematologic/Lymphatic Denies easy bruising or bleeding. The patient denies any tender or palpable lymph nodes. Respiratory Denies dyspnea on exertion, chest pain, cough or hemoptysis. Denies orthopnea. Cardiovascular Denies anginal chest pain, palpitations or orthopnea. Gastrointestinal Denies worsening nausea. He denies any vomiting, diarrhea, GI bleeding, or constipation. Denies change in bowel habits and/or stool color, no heartburn or early satiety. Genitourinary (M) Denies hematuria, dysuria, increased frequency, urgency, hesitancy or incontinence. Musculoskeletal Denies joint pain, swelling or redness. No decreased range of motion. Integumentary Denies chronic rashes, inflammation, ulcerations or skin changes. Neurologic Denies headache, blurred vision, and no areas of focal weakness or numbness. Normal gait. No sensory problems. Psychiatric Denies insomnia, depression, osiris or mood swings. Vital Signs: Performed on Dec 02, 2019 15:10 Height - 67.00 in Temperature - 97.8 F (LOW) Pulse - 80 /min Respiration - 18 /min BP - 147/74 mm(hg) (HIGH) O2 Sat - 97 % Pain - 0 Fatigue - 0 Performed on Dec 02, 2019 11:56 Height - 67.00 in Weight - 212.0 lbs (HIGH) BSA - 2.07 sq.m BMI - 33.20 (HIGH) Temperature - 97.3 F (LOW) Pulse - 59 /min (LOW) Respiration - 18 /min BP - 100/61 mm(hg) O2 Sat - 97 % Pain - 0,1 - No physically strenuous activity, but ambulatory and able to carry out light or sedentary work (e.g. office work, light house work). (ECOG) Physical Examination: Constitutional Alert, oriented, no acute distress. Skin pink, warm and dry. Head Normocephalic; atraumatic. Eyes Conjunctivae and sclerae are clear and without icterus. Pupils are reactive and equal. Neck Supple without masses or thyromegaly. No jugular venous distension. Respiratory Lungs are clear to auscultation without rhonchi or wheezing. Cardiovascular Regular rate and rhythm of heart without murmurs,clicks, gallops or rubs. Back/Spine Non-tender to palpation. Extremities No visible deformities, no cyanosis, clubbing or edema. Musculoskeletal No tenderness or swelling, normal range of motion without obvious weakness. Integumentary No rashes or lesions. Neurologic No sensory or motor deficits, normal cerebellar function, normal gait. Psychiatric Alert and oriented times three. Coherent speech. Verbalizes understanding of our discussions today. Laboratory:Test performed on Dec 02, 2019 09:25 Sodium 137 mmol/L Potassium 4.2 mmol/L Chloride 101 mmol/L CO2 26 mmol/L Anion Gap 14.2 BUN 9 mg/dL Creatinine 0.9 mg/dL Cr Clearance (Est) 121.8100 mL/min eGFR 85.2 mL/min Glucose 150 mg/dL Osmolality - Calculated 286 mOsm/kg Calcium 9.7 mg/dL Protein, Total 6.8 g/dL Albumin 4.0 g/dL Globulin 2.8 g/dL Bilirubin, Total 0.3 mg/dL ALT (SGPT) 10 U/L AST (SGOT) 13 U/L Alkaline Phosphatase 83 IU/L WBC 4.6 10 3/uL RBC 3.80 10 6/uL HGB 10.8 g/dL HCT 33.9 % MCV 89.2 fL MCH 28.4 pg MCHC 31.9 g/dL RDW 13.5 % Platelet Count 208 10 3/cmm MPV 9.5 fL Neutrophils 3.07 10 3/uL Lymphocytes 0.7 10 3/uL Monocytes 0.4 10 3/uL Eosinophils 0.3 10 3/uL Basophils 0.0 10 3/uL Neutrophil % 67.4 % Lymphocyte % 15.4 % Monocyte % 9.0 % Eosinophil % 6.2 % Basophils % 0.7 % NRBC % 0 % Test performed on Nov 18, 2019 10:44 CA 19-9 14.20 U/mL Test performed on Sep 07, 2019 15:50 CEA 19.9 ng/mL Impression: 1. Patient with adenocarcinoma involving the body of the pancreas, by clinical evaluation stage IV (T2, N2, M1), including extensive abdominal/retroperitoneal lymphadenopathy and metastatic involvement in the liver. 2. He also had EEG evidence of gastritis. 3. He is having significant anxiety, which is likely situational. His other medical illnesses include: 4. Type 2 diabetes. 5. Hyperlipidemia. Mr Swenson was offered palliative chemotherapy with gemcitabine/Abraxane. He began his first cycle on November 18, 2019. His day 8 treatment was held due to chemo induced neutropenia his ANC on day 8 was 1000. He was given 2 doses of Neupogen and is here today for reassessment. Plan: 1. Proceed with cycle 1 day 15 Abraxane gemcitabine. His regimen will be changed to day 1 of 15 frequency. 2. We will ask for prior authorization for Neulasta for chemotherapy-induced neutropenia. He has extensive metastatic disease. 3. Today's labs were reviewed in detail and discussed with Mr. Swenson and a copy was given to him. WBC 4.6, hemoglobin 10.8, platelets 208,000 ANC is 3000. Potassium 4.2 creatinine 0.9 and his LFTs are normal. 4. We will plan to see him back in 2 weeks with CBC CMP. He will be due for CA-19-9 at that time as well. 5. We will continue with interim blood counts for now. He will also need a port flush with 8 of his lab draws a treatments for port maintenance. 6. Mr. Swenson was instructed to contact us in the interim should questions or problems arise. Signed By: Cayden Noe-, [facility] Nakul Ventura MD <<Signature on File>>
== END 2019-12-02 23:59 | disposition home or self-care (01) ==
LOC: ONCMED 05:33
PROVIDERS: PCP Family Medicine; Visit Provider Nurse Practitioner
DX: Z51.11 Encounter for antineoplastic chemotherapy (principal); C25.1 Malignant neoplasm of body of pancreas; C78.7 Secondary malignant neoplasm of liver and intrahepatic bile duct; D70.1 Agranulocytosis secondary to cancer chemotherapy; T45.1X5A Adverse effect of antineoplastic and immunosuppressive drugs, initial encounter; R59.0 Localized enlarged lymph nodes; K29.70 Gastritis, unspecified, without bleeding; F41.9 Anxiety disorder, unspecified; E11.9 Type 2 diabetes mellitus without complications; E78.5 Hyperlipidemia, unspecified
CPT/HCPCS: 36591; 80053; 85025; 96367; 96372; 96413; 96417; 99214; J1100; J1442; J1453; J2469; J2505; J3490; J7050; J9201; J9264

== ENCOUNTER 2019-12-31 00:21 | Emergency (ER) | payer MEDICAID, SELFPAY ==
[2019-12-31 00:30] VITALS: BP 171/88; PULSE 74; RESP 18; TEMP 37; O2SAT 100; BMI 23.7
[2019-12-31 00:53] VITALS: BP 153/71; PULSE 76; RESP 18; O2SAT 92
--- NOTE | 2019-12-31 00:53 | ED_ITS ---
HPI - Abdominal Pain General: Chief Complaint: Abdominal Pain Stated Complaint: abd pain, n/v Time Seen by Provider: 12/31/19 00:41 History of Present Illness: HPI narrative: Patient arrives from home with complaints of severe abdominal pain. Patient states he was seen at oncology today and his chemo pack was put on today and ever since the packs been on he has been having abdominal pain and morphine he is taking is not helping him at all. He is nauseous has vomited few times. MD elicited complaint: abdominal pain Pertinent past history: other (Stage IV pancreatic cancer) Onset (ago): hour(s) Pain Consistency: constant Location: RUQ and RLQ Severity: similar to previous episodes Quality: aching Radiation: none Relieving factors: nothing Associated Symptoms: Reports nausea and vomiting; Denies chills and fever(s) Review of Systems Const: Denies: fever(s), chills or body aches Eyes: Denies: change in vision or blurry vision ENMT: Denies: throat pain or nasal congestion Card: Denies: chest pain or dyspnea on exertion Resp: Denies: dyspnea, productive cough or non-productive cough GI: Reports: abdominal pain, nausea and vomiting : Denies: difficulty urinating Musc: Denies: extremity pain Skin/Breast: Denies: rash Neuro: Denies: headache(s) Psych: Denies: anxiety or depression Kobi/Lymph: Denies: easy bruising PFSH ED PFSH: Medical History (Updated 12/31/19 @ 02:02 by JOSHUA Lino) History of inguinal hernia Surgical History (Updated 12/24/19 @ 14:33 by Glo Medina DO) History of inguinal hernia repair History of vasectomy Hx of LASIK Family History Other Cancer Hypertension Denies family history of CAD (coronary artery disease) Anesthesia complication Bleeding disorder Social History Smoking and tobacco status: never smoked Alcohol intake: current Alcohol intake frequency: holidays/special occasions only Lives independently: Yes Marital status: Single Current occupational status: retired History of recent travel: No Physical Exam Const: COMMON NORMALS: no acute distress, average body habitus and patient oriented x3 HENMT: COMMON NORMALS: normocephalic HEAD & SCALP: normal to inspection and normocephalic FACE & SINUS: normal facial exam Eye: COMMON NORMALS: conjunctivae normal GENERAL EYE: appearance normal, both eyes and all related structures CONJUNCTIVA: Yes conjunctivae normal Neck/C-Spine: COMMON NORMALS: no JVD Chest: COMMONS NORMALS: normal inspection of the chest Resp: COMMON NORMALS: normal respiratory effort Cardio: COMMON NORMALS: no JVD, regular rate and regular rhythm RATE: regular rate RHYTHM: regular rhythm GI: AUSCULTATION: Yes normoactive bowel sounds PALPATION: Yes Tenderness to palpation present (GI) Details: RLQ and RUQ Extremity: COMMON NORMALS: normal to inspection and full ROM Neuro: COMMON NORMALS: patient oriented x3 Course Vital Signs: Vital signs: Vital Signs Temperature 98.8 F 12/31/19 02:18 Pulse Rate 79 12/31/19 02:18 Respiratory Rate 18 12/31/19 02:18 Blood Pressure 159/94 12/31/19 02:18 Pulse Oximetry 100 12/31/19 02:18 MDM - Abdominal Pain MDM Narrative: Medical decision making narrative: Patient responded well to pain control and antinausea medication here in the ER. Discussed with patient to contact oncology and determine what they want to do about this chemo pack that he has on that seem to cause his pain tonight. Advised him can take the hydrocodone in between his morphine to help control pain and make sure he takes his antinausea medication as directed. Lab Data: Labs: Lab Results 12/31/19 12/31/19 Range/Units 00:51 00:51 WBC 10.8 H (4.0-10.0) 10^3/ uL RBC 3.71 L (4.1-5.3) 10^6/u L Hgb 10.8 L (11.7-16.6) g/dL Hct 33.6 L (42.0-52.0) % MCV 90.6 (80-94) fL MCH 29.1 (28.0-34.0) pg MCHC 32.1 (30.0-36.0) g/dL RDW 16.7 H (12.1-15.1) % Plt Count 247 (130-400) 10^3/c mm MPV 9.7 (7.4-10.4) fL Neut % (Auto) 91.6 % Lymph % (Auto) 4.4 % Coal % (Auto) 3.0 % Eos % (Auto) 0.1 % Baso % (Auto) 0.3 % Neut # (Auto) 9.94 H (1.8-7.7) 10^3/u L Lymph # (Auto) 0.5 L (0.8-4.8) 10^3/u L Coal # (Auto) 0.3 (0.2-0.9) 10^3/u L Eos # (Auto) 0.0 (0.0-0.8) 10^3/u L Baso # (Auto) 0.0 (0.0-0.1) 10^3/u L Nucleated RBC % (a uto) 0 % Nucleated RBCs # 0.0 /100WBC Sodium 135 L (136-145) mmol/L Potassium 4.1 (3.5-5.1) mmol/L Chloride 97 L (98-107) mmol/L Carbon Dioxide 26 (22-29) mmol/L Anion Gap 16.1 (5-19) BUN 9 (8-23) mg/dL Creatinine 0.7 (0.7-1.2) mg/dL GFR Calculation 113.9 (90-130) mL/min Glucose 185 H (65-115) mg/dL Calculated Osmolal ity 283 L (285-295) mOsm/k g Calcium 9.9 (8.5-10.5) mg/dL Magnesium 1.9 (1.7-2.3) mg/dL Total Bilirubin 0.4 (0.15-1.2) mg/dL AST 16 (0-40) U/L ALT 21 (0-41) U/L Alkaline Phosphata se 144 H (40-130) IU/L Total Protein 7.6 (6.6-8.7) g/dL Albumin 4.6 (3.5-5.2) g/dL Globulin 3.0 (1.3-4.6) g/dL Lipase 10 L (13-60) U/L Discharge Plan Discharge Patient Disposition: Home Clinical Impression: Abdominal pain Qualifiers: Abdominal location: right lower quadrant Qualified Code(s): R10.31 - Right lower quadrant pain Condition: Stable Prescriptions: New hydrocodone-acetaminophen 10-325 mg tablet 1 tab PO QID PRN (Reason: pain) Qty: 10 RF: 0 No Action morphine 30 mg capsule, ER multiphase 24 hr 30 mg PO Q4H RF: 0 lorazepam 1 mg tablet 1 mg PO Q6H PRN (Reason: Anxiety) RF: 0 metformin 1,000 mg tablet 1,000 mg PO BID Qty: 42 RF: 0 Januvia 100 mg tablet 100 mg PO DAILY Qty: 30 RF: 1 glipizide 5 mg tablet extended release 24hr 5 mg PO DAILY Qty: 30 RF: 1 Fish Oil 1 cap PO DAILY RF: 0 Hold Instructions: Resume on 11/14/19. metoclopramide HCl 10 mg tablet 10 mg PO BID Qty: 60 RF: 0 citalopram 20 mg Tablet 20 mg PO DAILY RF: 0 pantoprazole 40 mg Tablet,Delayed Release (Dr/Ec) 40 mg PO DAILY RF: 0 Discharge Orders: Discharge Order (Routine); Ordered 12/31/19 Ordered By: Nicola Gilliam Referrals: Glo Medina DO [Primary Care Provider] - Discharge Diet: Advance as tolerated Discharge Activity: Increase activity as tolerated Activity Restrictions/Additional Instructions: Follow-up with medical provider as directed. Take medications as prescribed. Return to the ER or your medical provider if condition worsens. Please read and understand discharge instructions. If any questions ask please. Contact your oncologist in the morning and discuss pain control. Take your antinausea medicine as needed. Can take the hydrocodone in between your morphine doses to help control pain. Return here if worse in. Discharge Date/Time: 12/31/19 02:15 Coding Level of Care Code ED Licensed [employer] for [employer] Exam Comprehensive
--- NOTE | 2019-12-31 01:00 | PC.NURSE ---
Reviewed with pt need for UA
[2019-12-31] MEDS: ondansetron 2 mg/ML SDV 2 mL 4 MG IVP ×2 (01:05→01:40)
[2019-12-31 01:06] VITALS: RESP 18; O2SAT 100
[2019-12-31] MEDS: HYDROmorphone 1 mg/mL INJ 1 mL IVP (01:06)
[2019-12-31] MEDS: sodium chloride 0.9% 1,000 ML 999 ML IV (01:08)
[2019-12-31 01:11] LABS: Basophils % 0.3 %; Eosinophils % 0.1 %; Hematocrit 33.6 % (42.0-52.0); Hemoglobin 10.8 g/dL (11.7-16.6); Lymphocytes # 0.5 10^3/uL (0.8-4.8); Lymphocytes % 4.4 %; Mean Corpuscular HGB Conc 32.1 g/dL (30.0-36.0); Mean Corpuscular Hemoglobin 29.1 pg (28.0-34.0); Mean Corpuscular Volume 90.6 fL (80-94); Mean Platelet Volume 9.7 fL (7.4-10.4); Monocytes # 0.3 10^3/uL (0.2-0.9); Neutrophils # 9.94 10^3/uL (1.8-7.7); Neutrophils % 91.6 %; Nucleated Red Blood Cells % 0 %; Platelet Count 247 10^3/cmm (130-400); Red Blood Count 3.71 10^6/uL (4.1-5.3); Red Cell Distribution Width 16.7 % (12.1-15.1); White Blood Count 10.8 10^3/uL (4.0-10.0)
[2019-12-31 01:23] LABS: Alanine Aminotransferase 21 U/L (0-41); Albumin Level 4.6 g/dL (3.5-5.2); Alkaline Phosphatase 144 IU/L (40-130); Anion Gap 16.1 (5-19); Aspartate Amino Transferase 16 U/L (0-40); Blood Urea Nitrogen 9 mg/dL (8-23); Calcium 9.9 mg/dL (8.5-10.5); Carbon Dioxide 26 mmol/L (22-29); Chloride 97 mmol/L (98-107); Glomerular Filtration Rate 113.9 mL/min (90-130); Glucose 185 mg/dL (65-115); Lipase 10 U/L (13-60); Magnesium 1.9 mg/dL (1.7-2.3); Osmolality Calculated 283 mOsm/kg (285-295); Potassium 4.1 mmol/L (3.5-5.1); Sodium 135 mmol/L (136-145); Total Bilirubin 0.4 mg/dL (0.15-1.2); Total Protein 7.6 g/dL (6.6-8.7)
[2019-12-31] MEDS: HYDROcodone-acetaminophen 10-325 mg Tablet 2 TAB PO (01:45)
[2019-12-31 02:18] VITALS: BP 159/94; PULSE 79; RESP 18; TEMP 37.1; O2SAT 100
== END 2019-12-31 02:15 | disposition home or self-care (01) ==
PROVIDERS: Emergency Medicine; Emergency Provider Nurse Practitioner Family; PCP Family Medicine
DX: R10.31 Right lower quadrant pain (principal); Z79.84 Long term (current) use of oral hypoglycemic drugs; Z85.07 Personal history of malignant neoplasm of pancreas
CPT/HCPCS: 12345; 80053; 83690; 83735; 85025; 99282; 99291; J1170; J2405; J7030

== ENCOUNTER 2020-01-01 05:40 | Outpatient (RCR) | payer MEDICAID, SELFPAY ==
[2019-12-09 08:33] LABS: Basophils # 0.1 10^3/uL (0.0-0.1); Basophils % 0.9 %; Eosinophils # 0.1 10^3/uL (0.0-0.8); Eosinophils % 0.9 %; Hematocrit 31.5 % (42.0-52.0); Lymphocytes # 1.1 10^3/uL (0.8-4.8); Lymphocytes % 8.1 %; Mean Corpuscular HGB Conc 31.7 g/dL (30.0-36.0); Mean Corpuscular Hemoglobin 28.5 pg (28.0-34.0); Mean Corpuscular Volume 89.7 fL (80-94); Mean Platelet Volume 9.3 fL (7.4-10.4); Monocytes # 0.9 10^3/uL (0.2-0.9); Monocytes % 6.7 %; Neutrophils # 11.01 10^3/uL (1.8-7.7); Neutrophils % 80.1 %; Nucleated Red Blood Cells % 0.1 %; Platelet Count 198 10^3/cmm (130-400); Red Blood Count 3.51 10^6/uL (4.1-5.3); Red Cell Distribution Width 13.7 % (12.1-15.1); White Blood Count 13.8 10^3/uL (4.0-10.0)
[2019-12-16 11:44] LABS: Basophils % 0.4 %; Eosinophils # 0.2 10^3/uL (0.0-0.8); Eosinophils % 2.1 %; Hematocrit 31.1 % (42.0-52.0); Lymphocytes # 0.8 10^3/uL (0.8-4.8); Lymphocytes % 8.9 %; Mean Corpuscular HGB Conc 32.2 g/dL (30.0-36.0); Mean Corpuscular Hemoglobin 29.1 pg (28.0-34.0); Mean Corpuscular Volume 90.4 fL (80-94); Mean Platelet Volume 9.8 fL (7.4-10.4); Monocytes # 0.5 10^3/uL (0.2-0.9); Neutrophils # 7.84 10^3/uL (1.8-7.7); Neutrophils % 82.8 %; Nucleated Red Blood Cells % 0 %; Platelet Count 193 10^3/cmm (130-400); Red Blood Count 3.44 10^6/uL (4.1-5.3); Red Cell Distribution Width 14.8 % (12.1-15.1); White Blood Count 9.5 10^3/uL (4.0-10.0)
[2019-12-16 12:09] LABS: Alanine Aminotransferase 10 U/L (0-41); Albumin Level 4.1 g/dL (3.5-5.2); Alkaline Phosphatase 120 IU/L (40-130); Anion Gap 13.3 (5-19); Aspartate Amino Transferase 11 U/L (0-40); Blood Urea Nitrogen 7 mg/dL (8-23); Calcium 9.4 mg/dL (8.5-10.5); Carbon Dioxide 28 mmol/L (22-29); Chloride 102 mmol/L (98-107); Globulin 2.7 g/dL (1.3-4.6); Glomerular Filtration Rate 113.9 mL/min (90-130); Glucose 130 mg/dL (65-115); Osmolality Calculated 288 mOsm/kg (285-295); Potassium 4.3 mmol/L (3.5-5.1); Sodium 139 mmol/L (136-145); Total Bilirubin 0.3 mg/dL (0.15-1.2); Total Protein 6.8 g/dL (6.6-8.7)
[2019-12-16] MEDS: sodium chloride 0.9% 250 ML 75 ML IV (13:50)
[2019-12-16] MEDS: pegfilgrastim 6 mg/0.6 mL Kit (onpro) SUBCUT (15:55)
[2019-12-16 19:45] LABS: Estmated Average Glucose 117; Hemoglobin A1C 5.7 % (4.0-6.0)
--- NOTE | 2019-12-20 22:23 | ONC FU_ITS ---
[facility] Patient Note Patient: Leonidas Swenson Unit #: [id number]: [id number] Dictated By: Cayden NoeDate of Visit: Dec 16, 2019 Onc MED Follow-Up/Prog Note Chief Complaint: Pancreatic cancer. History of Present Illness: Mr Swenson is a 64 year-old man had been seen initially with celiac axis, aortocaval, and retroperitoneal lymphadenopathy. He now has been confirmed to have pancreatic adenocarcinoma. He has type 2 diabetes and hyperlipidemia. Sometime within the past year or so he began having pain in his stomach and back. The pain gradually worsened, and he developed additional symptoms including anorexia, postprandial vomiting, and progressive weakness. He has had weight loss in the range of 40 pounds over a period of 3 months. 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 On 07/25/2019 he presented to the emergency room with abdominal pain. His CT abdomen/pelvis showed the pancreatic tail to be either absent or very atrophic. Pancreatic body was noted to be mildly hypodense, but the appearance was nonspecific. Prominent lymph nodes were noted, including a 2 x 1.4 cm peripancreatic lymph node as well as prominent retroperitoneal para-aortic lymph nodes. The lipase was normal. Further evaluation with cholangiopancreatography MRI on 08/06/2019 showed normal signal within the pancreas with mildly truncated distal pancreas, felt to be likely a normal variant. 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 The gallbladder showed no abnormal findings. He was seen in the ER again on 08/17/2019. CT abdomen/pelvis showed similar findings. Abdominal MRI on 08/31/2019 reported abnormal signal within the body and distal pancreas, but without evidence of enhancing mass. Again noted was aortocaval and periaortic adenopathy with the largest aortocaval node measuring 1.7 cm and a cluster of enlarged periaortic lymph nodes measuring 2.0 cm. An additional lymph node or other celiac axis measure 2.2 cm. MRI of the lumbar spine on 09/02/2019 showed degenerative changes at multiple levels, but no lytic bone disease or other evidence of malignancy. Dr Ventura had seen him initially on 09/07/2019. He then had further evaluation with PET/CT on 09/12/2019. It showed a 3.2 x 6.8 cm region of abnormal activity within the mid pancreas with SUV 7.0, consistent with primary pancreatic carcinoma. There was extensive FDG positive upper abdominal lymphadenopathy and there was an enlarged celiac lymph node measuring 2.9 cm with SUV 8.4, consistent with local metastatic disease. There is additional bilateral FDG avid lymph nodes, scattered FDG avid mesenteric lymph nodes, and FDG avid hepatic lesions, all consistent with metastatic disease. With those findings, he was referred to Dr. Deon Calderon at [facility]. He had further evaluation with EGD and upper abdominal EUS on 10/08/2019. The EGD did show some evidence of gastritis with negative gastric biopsy for helicobacter pylori. The upper EUS showed a 32.4 x 35.3 mm hypoechoic irregular mass in the body of the pancreas and a 24.8 x 25.5 mm hypoechoic ovoid celiac lymph node, both of which were evaluated with FNA biopsy. Pathology was positive for adenocarcinoma at both sites. Dr Ventura had seen him for a follow-up visit on 10/14/2019. At that point he indicated that he was interested in undergoing a trial of palliative chemotherapy, though with the understanding that the likelihood of benefit would be relatively low and that there would be potential for treatment related toxicity. He has since undergone placement of Port-A-Cath venous access device. He began his first cycle on November 18, 2019. His day 8 treatment was held due to chemo induced neutropenia his ANC on day 8 was 1000. He was given 2 doses of Neupogen and his blood counts recovered adequately to get treatment. Mr. Swenson is here today for follow-up. His last treatment was on December 02, 2019. He tolerated it well. He states that he continues to have some nausea. He does not feel that the Marinol is helping. It does not seem to be helping his appetite either. He thinks he has Reglan but is not sure. For now he will stop it if he does have it. Both brand and generic names were written down for him to check at home. He denies diarrhea or constipation. He states that he is still having abdominal pain after eating. He denies any heartburn. He denies any emesis or reflux symptoms at present. States his bowels and bladder are normal for him. He denies any new pain. His main concern is that he continues to have some queasiness/nausea. His ECOG is 1. Past Medical History: Hyperlipidemia Type II diabetes Past Surgical History: Biopsy of pancreas Lasik eye surgery bilaterally Right inguinal hernia repair Vasectomy Allergies: No Known Allergies. Medications: Aspirin 1 Tablet (of 81 mg) Tablet, enteric coated Oral daily CeleXA 1 Tablet (of 20 mg) Oral daily Cinnamon 1 Capsule Oral daily Fish Oil 1 Capsule Oral daily glipiZIDE XL 1 Tablet (of 5 mg) Tablet SR 24 HR Oral daily Januvia 1 Tablet (of 100 mg) Oral daily Lisinopril 1 Tablet (of 5 mg) Oral daily LORazepam 1 Tablet (of 0.5 mg) Oral 6x/d metFORMIN HCl 1 Tablet (of 1000 mg) Oral b.i.d. Morphine Sulfate 1 Tablet (of 15 mg) Oral q 4 hours PRN Multivitamin Adult 1 Tablet Oral daily traMADol HCl 1 Tablet (of 50 mg) Oral q 6 hours PRN Family History: Mr. Swenson's mother is alive. Mr. Swenson's father at age 52: bone cancer. Mother is still living at age 82. Father at age 52 with cancer involving his jawbone. He has six siblings, all apparently in good health. Social History: Mr. Swenson is and he is a milk receiver tank truck. Mr. Swenson has never smoked. He has no history of drinking. Mr. Swenson reports the following support systems: lives alone, lives in own house, supportive family/friends willing to assist with needs, and transportation problems exist and will require assistance. His diet consists of regular meals. He indicates his activity level as: regular exercise. 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 He has not been able to work due to this illness. He is a nonsmoker. He does not drink alcohol. Review Of Symptoms: Constitutional Denies fevers, chills, night sweats, excessive fatigue. Appetite not improved with Marinol. Allergic/Immunologic No reactions. Eyes Denies significant visual changes. No diplopia. No amaurosis. ENMT Denies changes in hearing, sore throat, mouth sores, difficulty or changes in swallowing ability, and/or sinus drainage. Hematologic/Lymphatic Denies easy bruising or bleeding. The patient denies any tender or palpable lymph nodes. Respiratory Denies dyspnea on exertion, chest pain, cough or hemoptysis. Denies orthopnea. Cardiovascular Denies anginal chest pain, palpitations or orthopnea. Gastrointestinal Denies worsening nausea-But has persistent nausea and does not think the Reglan or Marinol is helping.. He denies any vomiting, diarrhea, GI bleeding, or constipation. Denies change in bowel habits and/or stool color, no heartburn or early satiety. Genitourinary (M) Denies hematuria, dysuria, increased frequency, urgency, hesitancy or incontinence. Musculoskeletal Denies joint pain, swelling or redness. No decreased range of motion. Integumentary Denies chronic rashes, inflammation, ulcerations or skin changes. Neurologic Denies headache, blurred vision, and no areas of focal weakness or numbness. Normal gait. No sensory problems. Psychiatric Denies insomnia, depression, osiris or mood swings. Vital Signs: Performed on Dec 16, 2019 13:04 Height - 67.00 in Weight - 208 lbs (LOW) BSA - 2.06 sq.m BMI - 32.58 (HIGH) Temperature - 98.2 F (LOW) Pulse - 73 /min Respiration - 17 /min BP - 104/64 mm(hg) O2 Sat - 97 %,1 - No physically strenuous activity, but ambulatory and able to carry out light or sedentary work (e.g. office work, light house work). (ECOG) Physical Examination: Constitutional Alert, oriented, no acute distress. Skin pink, warm and dry. Head Normocephalic; atraumatic. Eyes Conjunctivae and sclerae are clear and without icterus. Pupils are reactive and equal. Neck Supple without masses or thyromegaly. No jugular venous distension. Respiratory Lungs are clear to auscultation without rhonchi or wheezing. Cardiovascular Regular rate and rhythm of heart without murmurs,clicks, gallops or rubs. Abdomen Non-tender, non-distended, no masses or ascites. Good bowel sounds noted in all quads. No guarding or rebound tenderness. No pulsatile masses. Back/Spine Non-tender to palpation. Extremities No visible deformities, no cyanosis, clubbing or edema. Musculoskeletal No tenderness or swelling, normal range of motion without obvious weakness. Integumentary No rashes or lesions. Neurologic No sensory or motor deficits, normal cerebellar function, normal gait. Psychiatric Alert and oriented times three. Coherent speech. Verbalizes understanding of our discussions today. Laboratory:Test performed on Dec 16, 2019 11:15 Sodium 139 mmol/L Potassium 4.3 mmol/L Chloride 102 mmol/L Est Avg Glucose (eAG) 117 mg/dL CO2 28 mmol/L Anion Gap 13.3 BUN 7 mg/dL Creatinine 0.7 mg/dL Cr Clearance (Est) 156.6200 mL/min eGFR 113.9 mL/min Glucose 130 mg/dL Osmolality - Calculated 288 mOsm/kg Calcium 9.4 mg/dL Protein, Total 6.8 g/dL Albumin 4.1 g/dL Globulin 2.7 g/dL Bilirubin, Total 0.3 mg/dL ALT (SGPT) 10 U/L AST (SGOT) 11 U/L Alkaline Phosphatase 120 IU/L Hemoglobin A1C % 5.7 % WBC 9.5 10 3/uL RBC 3.44 10 6/uL HGB 10.0 g/dL HCT 31.1 % MCV 90.4 fL MCH 29.1 pg MCHC 32.2 g/dL RDW 14.8 % Platelet Count 193 10 3/cmm MPV 9.8 fL Neutrophils 7.84 10 3/uL Lymphocytes 0.8 10 3/uL Monocytes 0.5 10 3/uL Eosinophils 0.2 10 3/uL Basophils 0.0 10 3/uL Neutrophil % 82.8 % Lymphocyte % 8.9 % Monocyte % 5.0 % Eosinophil % 2.1 % Basophils % 0.4 % NRBC % 0 % Test performed on Nov 18, 2019 10:44 CA 19-9 14.20 U/mL Test performed on Sep 07, 2019 15:50 CEA 19.9 ng/mL Impression: 1. Patient with adenocarcinoma involving the body of the pancreas, by clinical evaluation stage IV (T2, N2, M1), including extensive abdominal/retroperitoneal lymphadenopathy and metastatic involvement in the liver. 2. He also had EEG evidence of gastritis. 3. He is having significant anxiety, which is likely situational. His other medical illnesses include: 4. Type 2 diabetes. 5. Hyperlipidemia. Mr Swenson was offered palliative chemotherapy with gemcitabine/Abraxane. He began his first cycle on November 18, 2019. His day 8 treatment was held due to chemo induced neutropenia his ANC on day 8 was 1000. He was given 2 doses of Neupogen. Mr. Swenson was able to resume chemotherapy on December 02, 2019. His regimen has now been changed to 1 of 15 with Neulasta support as needed. Plan: 1. Proceed with cycle 2 day 1 Abraxane- gemcitabine. His regimen will be changed to day 1 of 15 frequency. Neulasta support. 2. We have asked for prior authorization for Neulasta for chemotherapy-induced neutropenia. He has extensive metastatic disease. 3. Today's labs were reviewed in detail and discussed with Mr. Swenson and a copy was given to him. WBC 9.5, hemoglobin 10, platelets 193,000 ANC is 7840. Potassium 4.3 random glucose 130 creatinine 0.7 LFTs are normal. CA 19-9 was pending at time of visit. 4. I have instructed him to stop the Marinol and the Reglan. As he does not seem to think these are helping him at all. We will refill ondansetron 8 mg to employee pharmacy. I have instructed him to take it 3 times daily starting the third day after chemotherapy. I have also advised him that he could try Compazine as needed. 5. We will plan to see him back in 2 weeks with CBC CMP. 6. We will continue with interim blood counts for now. He will also need a port flush with 8 of his lab draws a treatments for port maintenance. 7. Mr. Swenson was instructed to contact us in the interim should questions or problems arise. Signed By: Cayden Noe-, [facility] Nakul Ventura MD <<Signature on File>>
[2019-12-22 13:12] LABS: Basophils # 0.1 10^3/uL (0.0-0.1); Basophils % 0.8 %; Eosinophils # 0.1 10^3/uL (0.0-0.8); Eosinophils % 0.9 %; Hematocrit 30.3 % (42.0-52.0); Hemoglobin 9.5 g/dL (11.7-16.6); Lymphocytes # 0.9 10^3/uL (0.8-4.8); Lymphocytes % 5.5 %; Mean Corpuscular HGB Conc 31.4 g/dL (30.0-36.0); Mean Corpuscular Hemoglobin 29.1 pg (28.0-34.0); Mean Corpuscular Volume 92.7 fL (80-94); Mean Platelet Volume 9.8 fL (7.4-10.4); Monocytes # 0.7 10^3/uL (0.2-0.9); Monocytes % 4.2 %; Neutrophils # 14.12 10^3/uL (1.8-7.7); Neutrophils % 87.9 %; Nucleated Red Blood Cells % 0 %; Platelet Count 217 10^3/cmm (130-400); Red Blood Count 3.27 10^6/uL (4.1-5.3); Red Cell Distribution Width 14.8 % (12.1-15.1); White Blood Count 16.1 10^3/uL (4.0-10.0)
[2019-12-29 15:21] LABS: Basophils # 0.1 10^3/uL (0.0-0.1); Basophils % 0.5 %; Eosinophils # 0.2 10^3/uL (0.0-0.8); Eosinophils % 1.9 %; Hematocrit 32.1 % (42.0-52.0); Hemoglobin 10.3 g/dL (11.7-16.6); Lymphocytes # 0.7 10^3/uL (0.8-4.8); Lymphocytes % 5.6 %; Mean Corpuscular HGB Conc 32.1 g/dL (30.0-36.0); Mean Corpuscular Hemoglobin 29.4 pg (28.0-34.0); Mean Corpuscular Volume 91.7 fL (80-94); Mean Platelet Volume 9.3 fL (7.4-10.4); Monocytes # 0.6 10^3/uL (0.2-0.9); Monocytes % 4.7 %; Neutrophils # 10.28 10^3/uL (1.8-7.7); Neutrophils % 86.5 %; Nucleated Red Blood Cells % 0 %; Platelet Count 205 10^3/cmm (130-400); Red Cell Distribution Width 16.8 % (12.1-15.1); White Blood Count 11.9 10^3/uL (4.0-10.0)
[2019-12-29 15:53] LABS: Alanine Aminotransferase 22 U/L (0-41); Albumin Level 4.1 g/dL (3.5-5.2); Alkaline Phosphatase 136 IU/L (40-130); Anion Gap 12.1 (5-19); Aspartate Amino Transferase 17 U/L (0-40); Blood Urea Nitrogen 11 mg/dL (8-23); Cancer Antigen 19 9 16.19 U/mL (0-35); Carbon Dioxide 28 mmol/L (22-29); Chloride 100 mmol/L (98-107); Globulin 2.7 g/dL (1.3-4.6); Glomerular Filtration Rate 113.9 mL/min (90-130); Glucose 131 mg/dL (65-115); Osmolality Calculated 283 mOsm/kg (285-295); Potassium 4.1 mmol/L (3.5-5.1); Sodium 136 mmol/L (136-145); Total Bilirubin 0.2 mg/dL (0.15-1.2); Total Protein 6.8 g/dL (6.6-8.7)
[2019-12-29 17:09] LABS: Carcinoembryonic Antigen 76.4 ng/mL (0.0-4.7)
[2019-12-30] MEDS: dextrose 5% 250 ML 75 ML IV (11:00)
--- NOTE | 2019-12-30 23:36 | ONC FU_ITS ---
[facility] Patient Note Patient: Leonidas Swenson Unit #: [id number]: 1955 Dictated By: Cayden NoeDate of Visit: Dec 30, 2019 Onc MED Follow-Up/Prog Note Chief Complaint: Pancreatic cancer. History of Present Illness: Mr Swenson is a 64 year-old man had been seen initially with celiac axis, aortocaval, and retroperitoneal lymphadenopathy. He now has been confirmed to have pancreatic adenocarcinoma. He has type 2 diabetes and hyperlipidemia. Sometime within the past year or so he began having pain in his stomach and back. The pain gradually worsened, and he developed additional symptoms including anorexia, postprandial vomiting, and progressive weakness. He has had weight loss in the range of 40 pounds over a period of 3 months. 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 On 07/25/2019 he presented to the emergency room with abdominal pain. His CT abdomen/pelvis showed the pancreatic tail to be either absent or very atrophic. Pancreatic body was noted to be mildly hypodense, but the appearance was nonspecific. Prominent lymph nodes were noted, including a 2 x 1.4 cm peripancreatic lymph node as well as prominent retroperitoneal para-aortic lymph nodes. The lipase was normal. Further evaluation with cholangiopancreatography MRI on 08/06/2019 showed normal signal within the pancreas with mildly truncated distal pancreas, felt to be likely a normal variant. 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 The gallbladder showed no abnormal findings. He was seen in the ER again on 08/17/2019. CT abdomen/pelvis showed similar findings. Abdominal MRI on 08/31/2019 reported abnormal signal within the body and distal pancreas, but without evidence of enhancing mass. Again noted was aortocaval and periaortic adenopathy with the largest aortocaval node measuring 1.7 cm and a cluster of enlarged periaortic lymph nodes measuring 2.0 cm. An additional lymph node or other celiac axis measure 2.2 cm. MRI of the lumbar spine on 09/02/2019 showed degenerative changes at multiple levels, but no lytic bone disease or other evidence of malignancy. Dr Ventura had seen him initially on 09/07/2019. He then had further evaluation with PET/CT on 09/12/2019. It showed a 3.2 x 6.8 cm region of abnormal activity within the mid pancreas with SUV 7.0, consistent with primary pancreatic carcinoma. There was extensive FDG positive upper abdominal lymphadenopathy and there was an enlarged celiac lymph node measuring 2.9 cm with SUV 8.4, consistent with local metastatic disease. There is additional bilateral FDG avid lymph nodes, scattered FDG avid mesenteric lymph nodes, and FDG avid hepatic lesions, all consistent with metastatic disease. With those findings, he was referred to Dr. Deon Calderon at [facility]. He had further evaluation with EGD and upper abdominal EUS on 10/08/2019. The EGD did show some evidence of gastritis with negative gastric biopsy for helicobacter pylori. The upper EUS showed a 32.4 x 35.3 mm hypoechoic irregular mass in the body of the pancreas and a 24.8 x 25.5 mm hypoechoic ovoid celiac lymph node, both of which were evaluated with FNA biopsy. Pathology was positive for adenocarcinoma at both sites. Dr Ventura had seen him for a follow-up visit on 10/14/2019. At that point he indicated that he was interested in undergoing a trial of palliative chemotherapy, though with the understanding that the likelihood of benefit would be relatively low and that there would be potential for treatment related toxicity. He has since undergone placement of Port-A-Cath venous access device. He began his first cycle of Abraxane/gemcitabine on November 18, 2019. His day 8 treatment was held due to chemo induced neutropenia his ANC on day 8 was 1000. He was given 2 doses of Neupogen and his blood counts recovered adequately to get treatment. Mr. Swenson is here today for follow-up. His last treatment of Abraxane/gemcitabine was on December 16, 2019. He tolerated it well. He is here today for a new treatment plan due to results of his [employer] Next gene sequencing indicating that he is BRCA 2 positive. The new treatment plan is FOLFOX. We have obtained insurance consent and approval and we will start that today. Mr. Swenson reports that he has been doing fairly good. He is eating good. His energy is fair. Is able to do the things that he wants within reason. He denies nausea to the extent he had prior to his last chemotherapy. He states overall is much better. He has occasional waves but it is controlled with antiemetics when he takes them. He has had no vomiting. He denies any diarrhea. His main concern is that he continues to have some lower mid quad/lower pelvic/groin pain after eating. He denies any neuropathy. His ECOG is 1. Past Medical History: Hyperlipidemia Type II diabetes Past Surgical History: Biopsy of pancreas Lasik eye surgery bilaterally Right inguinal hernia repair Vasectomy Allergies: No Known Allergies. Medications: Aspirin 1 Tablet (of 81 mg) Tablet, enteric coated Oral daily CeleXA 1 Tablet (of 20 mg) Oral daily Cinnamon 1 Capsule Oral daily Fish Oil 1 Capsule Oral daily glipiZIDE XL 1 Tablet (of 5 mg) Tablet SR 24 HR Oral daily Januvia 1 Tablet (of 100 mg) Oral daily Lisinopril 1 Tablet (of 5 mg) Oral daily LORazepam 1 Tablet (of 0.5 mg) Oral 6x/d metFORMIN HCl 1 Tablet (of 1000 mg) Oral b.i.d. Morphine Sulfate 1 Tablet (of 15 mg) Oral q 4 hours PRN Multivitamin Adult 1 Tablet Oral daily traMADol HCl 1 Tablet (of 50 mg) Oral q 6 hours PRN Family History: Mr. Swenson's mother is alive. Mr. Swenson's father at age 52: bone cancer. Mother is still living at age 82. Father at age 52 with cancer involving his jawbone. He has six siblings, all apparently in good health. Social History: Mr. Swenson is and he is a trucking supervisor. Mr. Swenson has never smoked. He has no history of drinking. Mr. Swenson reports the following support systems: lives alone, lives in own house, supportive family/friends willing to assist with needs, and transportation problems exist and will require assistance. His diet consists of regular meals. He indicates his activity level as: regular exercise. 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 He has not been able to work due to this illness. He is a nonsmoker. He does not drink alcohol. Review Of Symptoms: Constitutional Denies fevers, chills, night sweats, excessive fatigue. Appetite not improved with Marinol. Allergic/Immunologic No reactions. Eyes Denies significant visual changes. No diplopia. No amaurosis. ENMT Denies changes in hearing, sore throat, mouth sores, difficulty or changes in swallowing ability, and/or sinus drainage. Hematologic/Lymphatic Denies easy bruising or bleeding. The patient denies any tender or palpable lymph nodes. Respiratory Denies dyspnea on exertion, chest pain, cough or hemoptysis. Denies orthopnea. Cardiovascular Denies anginal chest pain, palpitations or orthopnea. Gastrointestinal Denies worsening nausea- nausea better overall. He denies any vomiting, diarrhea, GI bleeding, or constipation. Denies change in bowel habits and/or stool color, no heartburn or early satiety. He states he is having upper groin pain/pressure after eating-pain meds do not help. Genitourinary (M) Denies hematuria, dysuria, increased frequency, urgency, hesitancy or incontinence. Musculoskeletal Denies joint pain, swelling or redness. No decreased range of motion. Integumentary Denies chronic rashes, inflammation, ulcerations or skin changes. Neurologic Denies headache, blurred vision, and no areas of focal weakness or numbness. Normal gait. No sensory problems. Psychiatric Denies insomnia, depression, osiris or mood swings. Vital Signs: Performed on Dec 30, 2019 15:04 Height - 67.00 in Temperature - 98.8 F Pulse - 66 /min Respiration - 18 /min BP - 148/77 mm(hg) (HIGH) O2 Sat - 98 % Pain - 0 Fatigue - 0,2 - Ambulatory/capable of all self-care, unable to perform any work activities. Up and about more than 50% of waking hours. (ECOG) Physical Examination: Constitutional Alert, oriented, no acute distress. Skin pink, warm and dry. Head Normocephalic; atraumatic. Eyes Conjunctivae and sclerae are clear and without icterus. Pupils are reactive and equal. Neck Supple without masses or thyromegaly. No jugular venous distension. Respiratory Lungs are clear to auscultation without rhonchi or wheezing. Cardiovascular Regular rate and rhythm of heart without murmurs,clicks, gallops or rubs. Back/Spine Non-tender to palpation. Extremities No visible deformities, no cyanosis, clubbing or edema. Musculoskeletal No tenderness or swelling, normal range of motion without obvious weakness. Integumentary No rashes or lesions. Neurologic No sensory or motor deficits, normal cerebellar function. Psychiatric Alert and oriented times three. Coherent speech. Verbalizes understanding of our discussions today. Laboratory:Test performed on Dec 16, 2019 11:15 Sodium 139 mmol/L Potassium 4.3 mmol/L Chloride 102 mmol/L Est Avg Glucose (eAG) 117 mg/dL CO2 28 mmol/L Anion Gap 13.3 BUN 7 mg/dL Creatinine 0.7 mg/dL Cr Clearance (Est) 156.6200 mL/min eGFR 113.9 mL/min Glucose 130 mg/dL Osmolality - Calculated 288 mOsm/kg Calcium 9.4 mg/dL Protein, Total 6.8 g/dL Albumin 4.1 g/dL Globulin 2.7 g/dL Bilirubin, Total 0.3 mg/dL ALT (SGPT) 10 U/L AST (SGOT) 11 U/L Alkaline Phosphatase 120 IU/L Hemoglobin A1C % 5.7 % WBC 9.5 10 3/uL RBC 3.44 10 6/uL HGB 10.0 g/dL HCT 31.1 % MCV 90.4 fL MCH 29.1 pg MCHC 32.2 g/dL RDW 14.8 % Platelet Count 193 10 3/cmm MPV 9.8 fL Neutrophils 7.84 10 3/uL Lymphocytes 0.8 10 3/uL Monocytes 0.5 10 3/uL Eosinophils 0.2 10 3/uL Basophils 0.0 10 3/uL Neutrophil % 82.8 % Lymphocyte % 8.9 % Monocyte % 5.0 % Eosinophil % 2.1 % Basophils % 0.4 % NRBC % 0 % Test performed on Nov 18, 2019 10:44 CA 19-9 14.20 U/mL Impression: 1. Patient with adenocarcinoma involving the body of the pancreas, by clinical evaluation stage IV (T2, N2, M1), including extensive abdominal/retroperitoneal lymphadenopathy and metastatic involvement in the liver. 2. He also had EEG evidence of gastritis. 3. He is having significant anxiety, which is likely situational. His other medical illnesses include: 4. Type 2 diabetes. 5. Hyperlipidemia. Mr Swenson was offered palliative chemotherapy with gemcitabine/Abraxane. He began his first cycle on November 18, 2019. His day 8 treatment was held due to chemo induced neutropenia his ANC on day 8 was 1000. He was given 2 doses of Neupogen. Mr. Swenson was able to resume chemotherapy on December 02, 2019. His regimen had been changed to 1 of 15 with Neulasta support as needed. Mr Swenson had [employer] Next Gene Sequencing which reported BRCA +. His treatment plan will be changed from Abraxane/gemcitabine to FOLFOX. He will begin his first cycle today. Plan: 1. Stop current treatment plan of Abraxane- gemcitabine. 2. Start FOLFOX due to BRCA 2+ results from [employer] Next Gene Sequencing. Genetic BRCA analysis was drawn on 12/29/2019. 2. Labs from 12/29/2019 were reviewed in detail and discussed with Mr. Swenson and a copy was given to him. WBC 11.9, hemoglobin 10.3, platelets 205,000 ANC is 10,000. Potassium 4.1 random glucose 131 creatinine 0.7 LFTs are normal. CA 19-9 was 16.19, CEA 76.4. He did have heriditary genetic testing for BRCA obtained yesterday. 4. We have previously instructed him to stop the Marinol and the Reglan. As he does not seem to think these are helping him at all. We will refill ondansetron 8 mg to employee pharmacy. I have instructed him to take it 3 times daily starting the third day after chemotherapy. I have also advised him that he could try Compazine as needed. 5. We will plan to see him back in 2 weeks with CBC CMP. 6. Will try Lunesta 2 mg at hs prn sleep. Called to [id number]if they work well, we can fill a larger quanity with refills. 7. We will continue with interim blood counts for now. He will also need a port flush with his lab draws for port maintenance. 8. Mr. Swenson was instructed to contact us in the interim should questions or problems arise. 9. The patient was informed of chemotherapy plan and specific drugs were discussed. We also discussed how chemotherapy works and identified common side effects including cold-induced neutropathy; alopecia; myelosuppression-including neutropenia, anemia, thrombocytopenia; peripheral neuropathy; fatigue; nausea; diarrhea; constipation; bleeding or bruising; skin changes; mouth sores; drug hypersensitivity/allergic reactions or anaphylaxis and extravasation. They have also been informed how to contact the clinic with side effects or symptoms, including but not limited to fever greater than 100.4???, chills, sore throat, bleeding or bruising that is not explained or mouth sores, cough, nasal discharge, diarrhea, constipation, nausea and/or vomiting not relieved with medications on hand at home, as well as any other concern or question they may have. Our hours are 8:00 a.m. to 4:30 p.m. on Saturday through and 8-12:00 on Saturday. However, someone is production graphic designer 24 hours per day and they have been advised to contact the [facility] if it is after hours. We have also discussed potential long-term side effects of chemotherapy including secondary cancers, infertility, pulmonary complications, cardiac complications, and again peripheral neuropathy. They were informed that it is okay to take multivitamins at normal doses. They verbally state that they understand to take all medications as directed by their healthcare provider unless otherwise indicated. They also verbalized understanding to leave the pressure dressing on the intravenous administration site for at least two hours after treatment. Instructions for oral care with baking soda and salt water rinses as well as a guide for use of exde-bqb-loppgia medication were provided with the treatment plan. They have been given a written patient treatment plan, of which a copy is in the chart, as well as specific drug information. They have no questions and verbalized understanding and are willing to proceed with chemotherapy at this time. The majority of this visit was spent in face to face communication with this patient in regards to the plan of care, side effect identification and management. ADDENDUM (DATE OF ADDENDUM: 12/30/2019) : [Mr. Swenson complained of insomnia uncontrolled with lorazepam up to 2 mg. He is requesting to try something else to help him sleep. We discussed possibly using Ambien or trazodone but due to potential side effects we have elected to try Lunesta 2 mg initially, pending insurance approval. He will let us know if this is ineffective and we may need to consider trying trazodone at that time.] Signed By: Cayden Noe-, KATHERINE Ventura MD <<Signature on File>>
[2019-12-31] MEDS: LORazepam 2 mg/mL INJ 1 mL 1 MG IVP (10:50)
[2019-12-31] MEDS: sodium chloride 0.9% 1,000 ML 999 ML IV (11:00)
[2019-12-31] MEDS: metoclopramide 5 mg/mL SDV 2 mL 10 MG IVP (11:15)
[2020-01-01] MEDS: LORazepam 2 mg/mL INJ 1 mL 1 MG IVP (11:30)
[2020-01-01] MEDS: metoclopramide 5 mg/mL SDV 2 mL 10 MG IVP (11:33)
[2020-01-01] MEDS: sodium chloride 0.9% 1,000 ML 1000 ML IV (11:50)
== END 2020-01-02 23:59 | disposition home or self-care (01) ==
LOC: ONCMED 05:40
PROVIDERS: Nurse Practitioner; PCP Family Medicine; Visit Provider Internal Medicine Medical Oncology
DX: Z51.11 Encounter for antineoplastic chemotherapy (principal); C25.1 Malignant neoplasm of body of pancreas; C78.7 Secondary malignant neoplasm of liver and intrahepatic bile duct; C77.2 Secondary and unspecified malignant neoplasm of intra-abdominal lymph nodes; D70.1 Agranulocytosis secondary to cancer chemotherapy; T45.1X5A Adverse effect of antineoplastic and immunosuppressive drugs, initial encounter; E11.9 Type 2 diabetes mellitus without complications; E78.5 Hyperlipidemia, unspecified; Z79.82 Long term (current) use of aspirin; K29.70 Gastritis, unspecified, without bleeding; F41.9 Anxiety disorder, unspecified; G47.00 Insomnia, unspecified
CPT/HCPCS: 36591; 80053; 82378; 83036; 85025; 86301; 96361; 96365; 96367; 96368; 96372; 96374; 96375; 96413; 96415; 96416; 96417; 99214; J0640; J1100; J1453; J2060; J2469; J2505; J2765; J3490; J7030; J7050; J9190; J9201; J9263; J9264

== ENCOUNTER 2020-01-03 11:24 | Inpatient (IN) | payer MEDICAID, SELFPAY ==
[2020-01-03] VITALS (8 sets, daily range): BP systolic 112–160; BP diastolic 68–85; PULSE 59–85; RESP 11–17; TEMP 36.6–37.4; O2SAT 93–98; BMI 23.7
--- NOTE | 2020-01-03 12:44 | W.ED.ABDPA2 ---
HPI - Abdominal Pain General: Chief Complaint: Abdominal Pain Stated Complaint: dehydrated/ABD pain Time Seen by Provider: 01/03/20 12:02 Source: patient and family () Mode of arrival: ambulatory Limitations: no limitations History of Present Illness: HPI narrative: Patient is a 64-year-old male currently receiving chemotherapy for pancreatic cancer, also has a history of diabetes mellitus and hyperlipidemia. He presents to the emergency department today with complaints of abdominal pain of a few days duration. He also had several episodes of nausea and vomiting and loss of appetite. He has been unable to eat for 1 to 2 days now. Last bowel movement was about 3 to 4 days ago. He has lower abdominal pain. No fever, denies dizziness but his states that he walks with an unsteady gait. MD elicited complaint: abdominal pain Associated Symptoms: Reports nausea and vomiting; Denies chills, dysuria and fever(s) Review of Systems General: Reports: 10 or more systems reviewed and unremarkable except in HPI and below Const: Denies: fever(s), chills or body aches Eyes: Denies: change in vision or blurry vision ENMT: Denies: throat pain, enlarged tonsils, odynophagia, hoarseness, mouth pain or swelling of lips/tongue Card: Denies: palpitations, irregular heart rhythm, edema or swelling of feet/ankles Resp: Denies: dyspnea, productive cough or non-productive cough GI: Reports: abdominal pain, nausea and vomiting : Denies: flank pain, dysuria, urinary frequency, urinary urgency or urinary hesitancy Musc: Denies: neck pain, back pain or extremity swelling Skin/Breast: Denies: rash, pruritus or erythema Neuro: Denies: headache(s), numbness in extremities or weakness in extremities Endo: Denies: polyuria, polydipsia or tired all the time PFSH ED PFSH: Medical History Abdominal pain Cancer determined by pancreatic biopsy Gastritis History of inguinal hernia HLD (hyperlipidemia) Metastatic adenocarcinoma Non-insulin dependent type 2 diabetes mellitus Pancreatic cancer adenocarcinoma involving the body of the pancreas, by clinical evaluation stage IV (T2, N2, M1), including extensive abdominal/retroperitoneal lymphadenopathy and metastatic involvement in the liver. On palliative chemotherapy. Follows up with Dr. Ventura Thoracic back pain TIA (transient ischemic attack) Surgical History History of inguinal hernia repair History of vasectomy Hx of LASIK Family History Other Cancer Hypertension Denies family history of CAD (coronary artery disease) Anesthesia complication Bleeding disorder Social History Smoking and tobacco status: never smoked Alcohol intake: current Alcohol intake frequency: holidays/special occasions only Lives independently: Yes Marital status: Single Current occupational status: retired History of recent travel: No Physical Exam Const: COMMON NORMALS: no acute distress, average body habitus, patient oriented x3, no limitations, healthy appearing, alert and well nourished HENMT: COMMON NORMALS: normocephalic, atraumatic and moist oral mucous membranes HEAD & SCALP: normocephalic and atraumatic Eye: COMMON NORMALS: Equal, round and reactive pupils present, EOMs intact bilaterally, conjunctivae normal and no scleral icterus CONJUNCTIVA: Yes conjunctivae normal PUPIL: Yes Equal, round and reactive pupils present Neck/C-Spine: COMMON NORMALS: full ROM, supple, no meningeal signs, no JVD and No carotid bruits Chest: COMMONS NORMALS: normal inspection of the chest and normal palpation of entire chest wall Resp: COMMON NORMALS: normal respiratory effort, No retractions, No use of accessory muscles, clear to auscultation bilaterally and percussion normal AUSCULTATION: clear to auscultation bilaterally PERCUSSION: percussion normal Cardio: COMMON NORMALS: no JVD, regular rate, regular rhythm, S1 normal heart sound present, S2 normal heart sound present, No gallops present (Cardio), No clicks present (Cardio), No murmurs present (Cardio), No rub (Cardio) and Peripheral pulses 2+ throughout RATE: regular rate RHYTHM: regular rhythm HEART SOUNDS: S1 normal heart sound present and S2 normal heart sound present PERIPHERAL PULSES: Peripheral pulses 2+ throughout GI: COMMON NORMALS: Normal to inspection, nondistended, normoactive bowel sounds present, Soft to palpation, non-tender, No hepatosplenomegaly present, no masses and no bruits PALPATION: Yes Soft to palpation and Yes No hepatosplenomegaly present Extremity: COMMON NORMALS: normal to inspection, full ROM, capillary refill normal, no calf tenderness and no pedal edema Neuro: COMMON NORMALS: patient oriented x3 SENSORIUM/ORIENTATION: Yes alert MENINGEAL SIGNS: Yes no meningeal signs Skin: COMMON NORMALS: no rashes or lesions noted, no wounds, turgor normal, no jaundice, no petechiae and no mottling GENERAL SKIN EXAM: no rashes or lesions noted and turgor normal Course Reevaluation(s): Reevaluation #1: Discussed lab and imaging findings with the patient and his . Also discussed my conversation with Dr. Ventura and he advised hospital admission for hydration. They both voiced understanding and were in agreement with the plan Time: 16:20 Consultations: Consultation #1: Patient with Dr. Ventura, his oncologist. Patient is having an unusual vomiting reaction to chemotherapy and would be best served by admitting overnight for hydration, IV dexamethasone, 4 mg q6, and IV antiemetics. Time: 16:12 Consultation #2: Discussed with Dr. Barnes and he kindly accepted the patient to his service Time: 16:17 Vital Signs: Vital signs: Vital Signs Temperature 99.6 F 01/04/20 00:00 Pulse Rate 71 01/04/20 00:00 Respiratory Rate 17 01/04/20 00:00 Blood Pressure 164/80 01/04/20 00:00 Pulse Oximetry 93 01/04/20 00:00 MDM - Abdominal Pain MDM Narrative: Medical decision making narrative: 63-year-old male patient with a history of pancreatic cancer who presents to the emergency department with several days of nausea and vomiting related to chemotherapy. Evaluation in the emergency department was unremarkable other than significant leukocytosis which was likely secondary to Neupogen shot which he got off the chemotherapy a few days ago. He was also in acute urinary retention and a French cath inserted drained 1 L of clear urine. He is admitted to the hospital for hydration and further management Medical Records: Attestation: I reviewed the patient's medical records. Lab Data: Attestation: I reviewed the patient's lab results. Labs: Lab Results 01/03/20 01/03/20 01/03/20 Range/Units 12:42 12:42 12:42 WBC 54.2 H* (4.0-10.0) 10^3/ uL RBC 3.42 L (4.1-5.3) 10^6/u L Hgb 10.3 L (11.7-16.6) g/dL Hct 31.1 L (42.0-52.0) % MCV 90.9 (80-94) fL MCH 30.1 (28.0-34.0) pg MCHC 33.1 (30.0-36.0) g/dL RDW 17.0 H (12.1-15.1) % Plt Count 304 (130-400) 10^3/c mm MPV 9.3 (7.4-10.4) fL Lymph % (Auto) Not Reportable [place] % (Auto) Not Reportable Lymph # (Auto) Not Reportable [place] # (Auto) Not Reportable Total Counted 100 (0-100) Atypical Lymphs % 0.0 (0-5) % Absolute Neutrophi ls 53.1 H (1.4-6.5) 10^3/c mm Segmented Neutroph ils 98 % Abs Segm Neuts (Ma n) 53.1 H (1.6-7.1) 10/cmm Band Neutrophils 0.0 % Abs Band Neuts (Ma n) 0.0 (0.0-1.2) 10^3/c mm Lymphocytes (Manua l) 2 % Monocytes (Manual) 0.0 % Absolute Monocytes 0.0 L (0.1-0.6) 10^3/c mm Eosinophils (Manua l) 0 % Absolute Eosinophi ls 0.0 (0.0-0.7) 10^3/c mm Basophils (Manual) 0.0 % Absolute Basophils 0.0 (0.0-0.2) 10^3/c mm Metamyelocytes 0.0 % Platelet Estimate Normal (Normal) Sodium 132 L (136-145) mmol/L Potassium 3.8 (3.5-5.1) mmol/L Chloride 93 L (98-107) mmol/L Carbon Dioxide 27 (22-29) mmol/L Anion Gap 15.8 (5-19) BUN 16 (8-23) mg/dL Creatinine 0.6 L (0.7-1.2) mg/dL GFR Calculation 136.1 H (90-130) mL/min Glucose 201 H (65-115) mg/dL Calculated Osmolal ity 281 L (285-295) mOsm/k g Calcium 9.2 (8.5-10.5) mg/dL Iron 52 L (59-158) ug/dL TIBC 188 mcg/dl % Saturation 27.6 (20-50) % Unsat Iron Binding 136 (112-347) ug/dL Total Bilirubin 0.5 (0.15-1.2) mg/dL AST 16 (0-40) U/L ALT 16 (0-41) U/L Alkaline Phosphata se 172 H (40-130) IU/L Creatine Kinase 18 L (39-308) U/L C-Reactive Protein 1.7 (0.0-4.9) mg/L Total Protein 6.6 (6.6-8.7) g/dL Albumin 3.9 (3.5-5.2) g/dL Globulin 2.7 (1.3-4.6) g/dL Lipase 14 (13-60) U/L Procalcitonin 0.05 (0-0.5) ng/mL Urine Color (Yellow) Urine Appearance (CLEAR) Urine pH (5-7) Ur Specific Gravit y (1.005-1.030) Urine Protein (Negative) Urine Glucose (UA) (Normal) Urine Ketones (Negative) Urine Blood (Negative) Urine Nitrate (Negative) Urine Bilirubin (Negative) Urine Urobilinogen (Negative) mg/dL Ur Leukocyte Pina ase (Negative) 01/03/20 Range/Units 14:28 WBC (4.0-10.0) 10^3/ uL RBC (4.1-5.3) 10^6/u L Hgb (11.7-16.6) g/dL Hct (42.0-52.0) % MCV (80-94) fL MCH (28.0-34.0) pg MCHC (30.0-36.0) g/dL RDW (12.1-15.1) % Plt Count (130-400) 10^3/c mm MPV (7.4-10.4) fL Lymph % (Auto) [place] % (Auto) Lymph # (Auto) [place] # (Auto) Total Counted (0-100) Atypical Lymphs % (0-5) % Absolute Neutrophi ls (1.4-6.5) 10^3/c mm Segmented Neutroph ils % Abs Segm Neuts (Ma n) (1.6-7.1) 10/cmm Band Neutrophils % Abs Band Neuts (Ma n) (0.0-1.2) 10^3/c mm Lymphocytes (Manua l) % Monocytes (Manual) % Absolute Monocytes (0.1-0.6) 10^3/c mm Eosinophils (Manua l) % Absolute Eosinophi ls (0.0-0.7) 10^3/c mm Basophils (Manual) % Absolute Basophils (0.0-0.2) 10^3/c mm Metamyelocytes % Platelet Estimate (Normal) Sodium (136-145) mmol/L Potassium (3.5-5.1) mmol/L Chloride (98-107) mmol/L Carbon Dioxide (22-29) mmol/L Anion Gap (5-19) BUN (8-23) mg/dL Creatinine (0.7-1.2) mg/dL GFR Calculation (90-130) mL/min Glucose (65-115) mg/dL Calculated Osmolal ity (285-295) mOsm/k g Calcium (8.5-10.5) mg/dL Iron (59-158) ug/dL TIBC mcg/dl % Saturation (20-50) % Unsat Iron Binding (112-347) ug/dL Total Bilirubin (0.15-1.2) mg/dL AST (0-40) U/L ALT (0-41) U/L Alkaline Phosphata se (40-130) IU/L Creatine Kinase (39-308) U/L C-Reactive Protein (0.0-4.9) mg/L Total Protein (6.6-8.7) g/dL Albumin (3.5-5.2) g/dL Globulin (1.3-4.6) g/dL Lipase (13-60) U/L Procalcitonin (0-0.5) ng/mL Urine Color Yellow (Yellow) Urine Appearance Clear (CLEAR) Urine pH 7 (5-7) Ur Specific Gravit y 1.015 (1.005-1.030) Urine Protein Neg (Negative) Urine Glucose (UA) Norm (Normal) Urine Ketones Negative (Negative) Urine Blood Neg (Negative) Urine Nitrate Negative (Negative) Urine Bilirubin Neg (Negative) Urine Urobilinogen 1 H (Negative) mg/dL Ur Leukocyte Pina ase Negative (Negative) Imaging Data ^: CT Abd/Pel: Attestation: I personally reviewed and interpreted this imaging study as follows: Radiologist's impression: [facility] [address] [facility] [place] [address] CT Scan Report Signed Patient: Gokul Swenson #: [id number] : 6At#:[id number] Age/Sex: 64 / MADM Date: 01/03/20 Loc: ERRoom/Bed: Attending Dr: Ordering Provider/Ordering MD: Cadence Peterson MD, [facility] Date of Service: 01/03/20 Procedure(s): CT abdomen pelvis wo con [id number] Accession Number(s): [id number] Report Number: [id number] PROCEDURE INFORMATION: Exam: CT Abdomen And Pelvis Without Contrast Exam date and time: 01/03/2020 1:21 PM Age: 64 years old Clinical indication: Constipation and nausea and vomiting; Prior surgery; Surgery date: 6+ months; Surgery type: Hernia; Patient HX: HX of pancreatic CA w recent chemo change C/O abd pain n/v loss of appetite and constipation; Additional info: Abd pain, constipation, pancreatic cancer TECHNIQUE: Imaging protocol: Computed tomography of the abdomen and pelvis without contrast. Radiation optimization: All CT scans at this facility use at least one of these dose optimization techniques: automated exposure control; mA and/or kV adjustment per patient size (includes targeted exams where dose is matched to clinical indication); or iterative reconstruction. COMPARISON: CT abdomen pelvis w con* [id number] 08/17/2019 10:21 AM RADIATION DOSE METRICS: Total DLP (mGy-cm): 767.4 FINDINGS: Liver: There are ill-defined low-density foci in the liver suspicious for metastatic disease the larger of which is in the liver dome and measures 2.2 x 1.9 cm in AP/transverse dimensions. Gallbladder and bile ducts: Normal. No calcified stones. No ductal dilation. Pancreas: Pancreas is ill-defined and heterogeneous. Tiny calcified densities are present in the pancreatic parenchyma consistent with chronic pancreatitis change. Spleen: The spleen enlarged measuring 16.5 cm. Adrenal glands: Normal. No mass. Kidneys and ureters: Normal. No hydronephrosis. Stomach and bowel: Colonic constipation is present. Appendix: No evidence of appendicitis. Intraperitoneal space: Unremarkable. No free air. No significant fluid collection. Vasculature: There are varicosities in the abdomen which can be seen with portal venous hypertension. No abdominal aortic aneurysm. Lymph nodes: Unremarkable. No enlarged lymph nodes. Urinary bladder: Left-sided bladder diverticulum is similar to the prior study. Reproductive: Prostate gland is heterogeneous and enlarged, indenting the base of the bladder. Bones/joints: There are degenerative changes in the lumbar spine most prominent across the L5-S1 level. Soft tissues: Tiny left inguinal hernia. There are postoperative changes in the right inguinal region. CT/CT abdomen pelvis wo con [id number] IMPRESSION: 1. Pancreas is ill-defined and heterogeneous, consistent with the history of pancreatic cancer. 2. Ill-defined low-density foci in the liver are consistent with metastatic disease. 3. Colonic constipation is present. 4. Prostate gland is heterogeneous and enlarged. 5. Splenomegaly. Radiation Dose CTDIVOL = (mGy): DLP = 767.4 (mGy-cm) Dictated By:Angy Tello MD Signed By:Angy Tello MDSigned Date/Time:01/03/20 142 DD/ 142 Discharge Plan Discharge Patient Disposition: Admitted As Inpatient Admit Provider: Ricardo Barnes Clinical Impression: Intractable vomiting with nausea, Acute urinary retention, Acute dehydration Condition: Stable Interventions: ED Discharge Assessment Last Done: 01/03/20 16:48 ED Charges Last Done: 01/03/20 16:47 Discharge Date/Time: 01/03/20 16:50 Coding Level of Care Code ED Formation Fracturing Operator for Chg Fwd Exam Comprehensive
[2020-01-03 12:54] LABS: Hematocrit 31.1 % (42.0-52.0); Hemoglobin 10.3 g/dL (11.7-16.6); Mean Corpuscular HGB Conc 33.1 g/dL (30.0-36.0); Mean Corpuscular Hemoglobin 30.1 pg (28.0-34.0); Mean Corpuscular Volume 90.9 fL (80-94); Mean Platelet Volume 9.3 fL (7.4-10.4); Platelet Count 304 10^3/cmm (130-400); Red Blood Count 3.42 10^6/uL (4.1-5.3)
[2020-01-03] MEDS: ondansetron 2 mg/ML SDV 2 mL 8 MG IVP (12:57)
[2020-01-03] MEDS: HYDROmorphone 1 mg/mL INJ 1 mL IVP (12:58)
[2020-01-03] MEDS: sodium chloride 0.9% 1,000 ML 999 ML IV (13:01)
--- NOTE | 2020-01-03 13:16 | CTR_ITS ---
PROCEDURE INFORMATION: Exam: CT Abdomen And Pelvis Without Contrast Exam date and time: 01/03/2020 1:21 PM Age: 64 years old Clinical indication: Constipation and nausea and vomiting; Prior surgery; Surgery date: 6+ months; Surgery type: Hernia; Patient HX: HX of pancreatic CA w recent chemo change C/O abd pain n/v loss of appetite and constipation; Additional info: Abd pain, constipation, pancreatic cancer TECHNIQUE: Imaging protocol: Computed tomography of the abdomen and pelvis without contrast. Radiation optimization: All CT scans at this facility use at least one of these dose optimization techniques: automated exposure control; mA and/or kV adjustment per patient size (includes targeted exams where dose is matched to clinical indication); or iterative reconstruction. COMPARISON: CT abdomen pelvis w con* [id number] 08/17/2019 10:21 AM RADIATION DOSE METRICS: Total DLP (mGy-cm): 767.4 FINDINGS: Liver: There are ill-defined low-density foci in the liver suspicious for metastatic disease the larger of which is in the liver dome and measures 2.2 x 1.9 cm in AP/transverse dimensions. Gallbladder and bile ducts: Normal. No calcified stones. No ductal dilation. Pancreas: Pancreas is ill-defined and heterogeneous. Tiny calcified densities are present in the pancreatic parenchyma consistent with chronic pancreatitis change. Spleen: The spleen enlarged measuring 16.5 cm. Adrenal glands: Normal. No mass. Kidneys and ureters: Normal. No hydronephrosis. Stomach and bowel: Colonic constipation is present. Appendix: No evidence of appendicitis. Intraperitoneal space: Unremarkable. No free air. No significant fluid collection. Vasculature: There are varicosities in the abdomen which can be seen with portal venous hypertension. No abdominal aortic aneurysm. Lymph nodes: Unremarkable. No enlarged lymph nodes. Urinary bladder: Left-sided bladder diverticulum is similar to the prior study. Reproductive: Prostate gland is heterogeneous and enlarged, indenting the base of the bladder. Bones/joints: There are degenerative changes in the lumbar spine most prominent across the L5-S1 level. Soft tissues: Tiny left inguinal hernia. There are postoperative changes in the right inguinal region. CT/CT abdomen pelvis wo con [id number] IMPRESSION: 1. Pancreas is ill-defined and heterogeneous, consistent with the history of pancreatic cancer. 2. Ill-defined low-density foci in the liver are consistent with metastatic disease. 3. Colonic constipation is present. 4. Prostate gland is heterogeneous and enlarged. 5. Splenomegaly. Radiation Dose CTDIVOL = (mGy): DLP = 767.4 (mGy-cm)
[2020-01-03 13:20] LABS: Alanine Aminotransferase 16 U/L (0-41); Albumin Level 3.9 g/dL (3.5-5.2); Alkaline Phosphatase 172 IU/L (40-130); Anion Gap 15.8 (5-19); Aspartate Amino Transferase 16 U/L (0-40); Blood Urea Nitrogen 16 mg/dL (8-23); C Reactive Protein 1.7 mg/L (0.0-4.9); Calcium 9.2 mg/dL (8.5-10.5); Carbon Dioxide 27 mmol/L (22-29); Chloride 93 mmol/L (98-107); Creatine Phosphokinase 18 U/L (39-308); Globulin 2.7 g/dL (1.3-4.6); Glomerular Filtration Rate 136.1 mL/min (90-130); Glucose 201 mg/dL (65-115); Lipase 14 U/L (13-60); Osmolality Calculated 281 mOsm/kg (285-295); Potassium 3.8 mmol/L (3.5-5.1); Sodium 132 mmol/L (136-145); Total Bilirubin 0.5 mg/dL (0.15-1.2); Total Protein 6.6 g/dL (6.6-8.7)
[2020-01-03 13:41] LABS: Slide Review Slide Review Perform; White Blood Count 54.2 10^3/uL (4.0-10.0)
[2020-01-03 13:50] LABS: Absolute Segmented Neutrophil 53.1 10/cmm (1.6-7.1); Lymphocytes 2 %; Platelet Estimate Normal (Normal); Segmented Neutrophils 98 %; Total Cells Counted 100 (0-100)
[2020-01-03 13:54] LABS: Absolute Neutrophil 53.1 10^3/cmm (1.4-6.5)
[2020-01-03 13:55] LABS: Eosinophils 0 %
--- NOTE | 2020-01-03 14:04 | XRR_ITS ---
PROCEDURE INFORMATION: Exam: XR Chest, 1 View Exam date and time: 01/03/2020 2:06 PM Age: 64 years old Clinical indication: Cough; Patient HX: PT has a HX of pancreatic CA; Additional info: Nausea/vomiting TECHNIQUE: Imaging protocol: XR of the chest Views: 1 view. COMPARISON: CR XR chest 1V portable [id number] 11/10/2019 9:42 AM FINDINGS: Tubes, catheters and devices: Central venous catheter tip terminates over the cavoatrial junction. Lungs: Unremarkable. No consolidation. Pleural space: Unremarkable. No pleural effusion. No pneumothorax. Heart/Mediastinum: Unremarkable. No cardiomegaly. Bones/joints: Unremarkable. XR/XR chest 1V portable [id number] IMPRESSION: No evidence for acute cardiopulmonary disease.
[2020-01-03] MEDS: lidocaine 2% Urojet 20 mL TOPICAL (14:14)
[2020-01-03 14:36] LABS: Add Urine Microscopic? NO
[2020-01-03 14:49] LABS: Bilirubin Urine Neg (Negative); Blood Urine Neg (Negative); Glucose Urine UA Norm (Normal); Ketones Urine Negative (Negative); Leukocyte Esterase Urine Negative (Negative); Nitrate Urine Negative (Negative); Protein Urine Neg (Negative); Specific Gravity, Urine 1.015 (1.005-1.030); Urine Appearance Clear (CLEAR); Urine Color Yellow (Yellow); Urobilinogen Urine 1 mg/dL (Negative); pH Urine 7 (5-7)
[2020-01-03] MEDS: sodium chloride 0.9% 1,000 ML 125 ML IV ×2 (16:38→20:16)
[2020-01-03] MEDS: dexamethasone 4 mg/mL INJ IVP ×2 (16:39→22:29)
--- NOTE | 2020-01-03 17:01 | P.HP_ITS ---
Providers/Chief Complaint Admitting Physician: Ricardo Barnes MD Primary Care Provider: Glo Medina DO Chief Complaint: dehydrated/ABD pain History of Present Illness Leonidas Swenson is a 64 year old male with past medical history of metastatic adenocarcinoma of the pancreas on palliative chemotherapy with last chemotherapy on December 29, type 2 diabetes mellitus, hyperlipidemia who presents to the ER today after feeling weak, lower abdominal pain, not able to eat and few episodes of vomiting at home. Patient states he got a new type of chemotherapy medication on December 29 and after that his symptoms have gotten worse. He denies of having any fever, diarrhea, headache, dizziness, dysuria, runny nose, cough, known exposure to COVID-19. He states his last bowel movement was around 4 to 5 days ago. He complains of feeling constant pressure in his lower abdomen. During his last chemotherapy session he got a shot of Neulasta to prevent from neutropenia. Blood work in the ER showed a white count 54.2, hemoglobin of 10.3, platelet count of 304, absolute neutrophils of 53%, bands of 0%, sodium of 132, chloride of 93, creatinine of 0.6, AST/ALT of 16/16,-phosphatase of 172, urinalysis negative for any signs of infection, CT abdomen consistent with ill-defined bonilla creatic mass with ill-defined low-density foci in liver and colonic constipation along with splenomegaly. In the ER there were concerns of urinary retention so French catheter was placed and around 1200 cc of urine came out. Patient states he he has never had a complaint of urinary retention in the past. Review of Systems General: Reports: 10 or more systems reviewed and unremarkable except in HPI and below Const: Denies: fever(s), chills, body aches, change in appetite, change in weight, malaise, night sweats, diaphoresis, change in sleep pattern, daytime sleepiness or snoring Eyes: Denies: change in vision, blurry vision, photophobia, eye discomfort or eye discharge ENMT: Denies: throat pain, enlarged tonsils, hoarseness, mouth pain, oral sores, dry mouth, tinnitus, nasal congestion or post nasal drip Card: Denies: chest pain, palpitations, irregular heart rhythm, edema, swelling of feet/ankles, lightheadedness, syncope, pre-syncope, dyspnea on exertion, orthopnea, leg pain with exertion or acrocyanosis Resp: Denies: dyspnea, productive cough, non-productive cough, wheezing, stridor, pain on inspiration, change in phlegm color, hemoptysis or chest congestion GI: Denies: abdominal pain, nausea, vomiting, hematemesis, coffee ground emesis, dysphagia, heartburn, diarrhea, constipation, bloating, GI cramping, change in bowel habits, pain on defecation, hematochezia or melena : Denies: flank pain, difficulty urinating, dysuria, urinary frequency, urinary urgency, urinary hesitancy, urinary dribbling, difficulty starting urination, change in urine stream, nocturia or hematuria Musc: Denies: neck pain, back pain, extremity pain, joint pain, joint swelling, joint redness, joint stiffness or limited range of motion Neuro: Denies: headache(s), numbness in extremities, weakness in extremities, sensory changes, lack of coordination, difficulty walking, frequent falls, dizziness, vertigo, confusion, Slurred speech present, difficulty communicating thoughts or seizure-like activity Psych: Denies: anxiety, depression, mood swings, panic attacks, hopelessness or irritability Endo: Denies: polyuria, polydipsia, tired all the time, cold intolerance, excessive sweating, flushing or heat intolerance Kobi/Lymph: Denies: easy bruising or easy bleeding All/Imm: Denies: tongue swelling, facial swelling or acute wheezing Medications/Allergies Home Medications Medication Instructions Recorded Confirmed Last Taken Type Fish Oil 1 cap PO DAILY 08/06/19 01/03/20 11/08/19 History lorazepam 1 mg tablet 1 mg PO Q6H tab 10/29/19 01/03/20 11/09/19 History citalopram 20 mg PO DAILY 11/06/19 01/03/20 11/09/19 History pantoprazole 40 mg PO DAILY 11/06/19 01/03/20 11/09/19 History glipizide 5 mg tablet, extended 5 mg PO DAILY #30 tab 12/29/19 01/03/20 Unknown Rx release 24 hr sitagliptin 100 mg tablet 100 mg PO DAILY #30 tab 12/29/19 01/03/20 Unknown Rx dexamethasone See Rx Instructions .ROUTE .COMPLEX 01/03/20 01/03/20 01/03/20 History 4 MG dronabinol 5 mg PO BID 01/03/20 01/03/20 Unknown History morphine 30 mg PO Q4H PRN 01/03/20 01/03/20 Unknown History multivitamin [Multiple Vitamins] 1 tab PO DAILY 01/03/20 01/03/20 Unknown History ondansetron HCl 8 mg PO TID PRN 01/03/20 01/03/20 Unknown History prochlorperazine maleate 10 mg PO BID 01/03/20 01/03/20 Unknown History Allergies Allergy/AdvReac Type Severity Reaction Status Date / Time No Known Allergies Allergy Verified 01/03/20 15:25 PFSH Acute PFSH: Medical History Abdominal pain Cancer determined by pancreatic biopsy Gastritis History of inguinal hernia HLD (hyperlipidemia) Metastatic adenocarcinoma Non-insulin dependent type 2 diabetes mellitus Pancreatic cancer adenocarcinoma involving the body of the pancreas, by clinical evaluation stage IV (T2, N2, M1), including extensive abdominal/retroperitoneal lymphadenopathy and metastatic involvement in the liver. On palliative chemotherapy. Follows up with Dr. Ventura Thoracic back pain TIA (transient ischemic attack) Surgical History History of inguinal hernia repair History of vasectomy Hx of LASIK Family History Other Cancer Hypertension Denies family history of CAD (coronary artery disease) Anesthesia complication Bleeding disorder Social History Smoking and tobacco status: never smoked Alcohol intake: current Alcohol intake frequency: holidays/special occasions only Lives independently: Yes Marital status: Single Current occupational status: retired History of recent travel: No Vitals/I&O/Wt Last Vital Signs Temp 98.6 F 01/03/20 16:48 Pulse 67 01/03/20 16:48 Resp 11 L 01/03/20 16:48 BP 146/71 01/03/20 16:48 Pulse Ox 96 01/03/20 16:48 Weight last 48 hrs Weight 90.718 kg Physical Exam Narrative: EXAM NARRATIVE: General: No acute distress, AO x3, depressed, dehydrated HEENT: PERRLA, pupils bilaterally equal and reactive Chest: Normal vesicular breath sounds, no added sounds, equal good air entry bilaterally CVS: S1-S2 regular, no murmurs, no tachycardia, no gallops, no rubs Abdomen: Soft, generalized tenderness in epigastric area, soft splenomegaly, soft hepatomegaly without tenderness, bowel sounds sluggish, Neuro: No focal deficits, no facial deformity, AO x3, power 5/5 in all limbs Urinary Catheter Management^: French: Cath Placed During This Visit: yes Reason for Continuing Indwelling Catheter: Not indwelling catheter Urinary Catheter Date of Insertion: 01/03/20 Urinary Catheter Time of Insertion: 14:31 Data : 01/03/20 12:42 01/03/20 12:42 A&P Assessment and plan (1) Dehydration: Status: Acute (2) Urinary retention: Status: Acute (3) Weakness: Status: Acute (4) Pancreatic cancer: Status: Acute (5) Metastatic adenocarcinoma: Status: Acute (6) Gastritis: Status: Acute (7) Leukocytosis: Status: Acute (8) Non-insulin dependent type 2 diabetes mellitus: Status: Acute (9) HLD (hyperlipidemia): Status: Acute Additional A&P Information 64-year-old man with past medical history of adenocarcinoma of pancreas metastatic to liver on palliative chemotherapy with new trial of chemotherapy started on December 29 comes in with complaint of lower abdomen heaviness, poor o ral intake found to have acute urinary retention relieved by catheterization. Plan: Start patient on IV hydration with normal saline at 100 cc/h. Zofran 8 mg IV every 6 hours as needed. Continue home dose of Compazine 10 mg twice daily. Protonix for PUD prophylaxis. Change Ativan oral to IV 0.5 mg every 6 hours. Start patient on dexamethasone 4 mg IV every [address] Ventura. Continue home dose of pain medication with morphine 30 mg every 4 hours as needed. Urinary retention: Continue with Frenhc catheterization. Patient would most likely be discharged on a French catheter. We will advised to follow-up with Dr. Burgess as an outpatient. Start patient on Flomax 0.4 nightly. Leukocytosis: Most likely secondary to Neulasta given on December 29. At present patient does not have any signs of infection. Will hold off on any antibiotics. If patient spikes any fever will start him on broad-spectrum antibiotics Check blood culture, lactate with reflex, procalcitonin, urine culture, stool studies to rule out C. difficile. Check peripheral blood smear. Type 2 diabetes mellitus: Start patient on carb consistent GI soft diet. Insulin sliding scale at mild dose before meals and at bedtime. Continue other chronic medications like Celexa. Check iron panel, TSH. CODE STATUS: Discussed with patient in detail. He states he does not want any kind of chest compression or to live on mechanical support. Patient is DNR/DNI. Lovenox for DVT prophylaxis. Carb consistent GI soft diet Attestations Medical Necessity Statement*: Patient requires hospitalization for dehydration due to poor oral intake in setting of palliative chemotherapy for metastatic adenocarcinoma of pancreas and acute urinary retention along with leukocytosis under evaluation Patient requires admission for most likely less than 2 midnights. Coding Level of Care Code Acute [employer] for Chg Fwd Diagnoses Dehydration E86.0 Urinary retention R33.9 Weakness R53.1 Pancreatic cancer C25.9 Metastatic adenocarcinoma C79.9 Gastritis K29.70 Leukocytosis D72.829 Non-insulin dependent type 2 diabetes mellitus E11.9 HLD (hyperlipidemia) E78.5
[2020-01-03 17:33] LABS: LAB Peripheral Smear Sent for Review
[2020-01-03 18:00] LABS: Procalcitonin 0.05 ng/mL (0-0.5)
[2020-01-03 18:11] LABS: Iron 52 ug/dL (59-158); Percent Saturation 27.6 % (20-50); Total Iron Binding Capacity 188 mcg/dl; Unsaturated Iron Binding 136 ug/dL (112-347)
[2020-01-03] MEDS: bisacodyl 5 mg Tablet 10 MG PO (20:21)
[2020-01-03] MEDS: dronabinol 2.5 mg Capsule 5 MG PO (20:21)
[2020-01-03] MEDS: prochlorperazine 10 mg Tablet PO (20:22)
[2020-01-03] MEDS: enoxaparin 40 mg/0.4 mL Syringe SUBCUT (20:24)
[2020-01-03] MEDS: magnesium hydroxide 30 mL UDC 15 ML PO (20:25)
[2020-01-03] MEDS: lactulose oral liq 20 gm/30 mL UDC 10 GM PO (20:26)
[2020-01-03] MEDS: LORazepam 2 mg/mL INJ 1 mL 0.5 MG IVP (20:27)
[2020-01-03] MEDS: famotidine 20 mg/2 mL INJ IVP (20:28)
[2020-01-04] VITALS (8 sets, daily range): BP systolic 123–164; BP diastolic 61–80; PULSE 61–76; RESP 16–18; TEMP 36.8–37.6; O2SAT 93–97
[2020-01-04] MEDS: LORazepam 2 mg/mL INJ 1 mL 0.5 MG IVP ×4 (01:35→21:15)
[2020-01-04] MEDS: dexamethasone 4 mg/mL INJ IVP ×4 (03:55→23:07)
[2020-01-04 04:04] LABS: Basophils # 0.2 10^3/uL (0.0-0.1); Basophils % 0.3 %; Hematocrit 30.3 % (42.0-52.0); Hemoglobin 10.3 g/dL (11.7-16.6); Lymphocytes # 0.7 10^3/uL (0.8-4.8); Lymphocytes % 1.2 %; Mean Corpuscular Hemoglobin 30.2 pg (28.0-34.0); Mean Corpuscular Volume 88.9 fL (80-94); Mean Platelet Volume 9.2 fL (7.4-10.4); Monocytes % 1.8 %; Neutrophils # 50.62 10^3/uL (1.8-7.7); Neutrophils % 88.8 %; Nucleated Red Blood Cells % 0 %; Platelet Count 300 10^3/cmm (130-400); Red Blood Count 3.41 10^6/uL (4.1-5.3); Red Cell Distribution Width 16.4 % (12.1-15.1)
[2020-01-04 04:27] LABS: Alanine Aminotransferase 13 U/L (0-41); Albumin Level 3.7 g/dL (3.5-5.2); Alkaline Phosphatase 189 IU/L (40-130); Anion Gap 12.1 (5-19); Aspartate Amino Transferase 9 U/L (0-40); Blood Urea Nitrogen 11 mg/dL (8-23); Calcium 9.2 mg/dL (8.5-10.5); Carbon Dioxide 28 mmol/L (22-29); Chloride 95 mmol/L (98-107); Globulin 2.6 g/dL (1.3-4.6); Glomerular Filtration Rate 113.9 mL/min (90-130); Glucose 201 mg/dL (65-115); Osmolality Calculated 277 mOsm/kg (285-295); Phosphorus 4.1 mg/dL (2.5-4.5); Potassium 4.1 mmol/L (3.5-5.1); Sodium 131 mmol/L (136-145); Total Bilirubin 0.5 mg/dL (0.15-1.2); Total Protein 6.3 g/dL (6.6-8.7)
[2020-01-04 05:37] LABS: Estmated Average Glucose 117; Hemoglobin A1C 5.7 % (4.0-6.0)
[2020-01-04] MEDS: prochlorperazine 10 mg Tablet PO ×2 (08:44→21:16)
[2020-01-04] MEDS: famotidine 20 mg/2 mL INJ IVP ×2 (08:45→21:16)
[2020-01-04] MEDS: multivitamin therapeutic Tablet 1 TAB PO (08:45)
[2020-01-04] MEDS: tamsulosin 0.4 mg Capsule PO (08:46)
[2020-01-04] MEDS: dronabinol 2.5 mg Capsule 5 MG PO ×2 (08:57→18:15)
[2020-01-04] MEDS: bisacodyl 5 mg Tablet 10 MG PO (08:57)
[2020-01-04] MEDS: lactulose oral liq 20 gm/30 mL UDC 10 GM PO (08:57)
[2020-01-04] MEDS: morphine IR 15 mg Tablet 30 MG PO ×2 (08:58→16:34)
--- NOTE | 2020-01-04 10:14 | PC.CHAP ---
Pastoral Care Encounter/Spiritual Assessment Type of Contact [] Declined application architect visit [] Patient/Family/Request visit [] Outpatient visit [] Follow-up visit [] Physician referral [] Code/Alert [x] Routine visit [] Staff referral [] Actively dying [] Patient sleeping [] Family support [] [] Out of room [] Palliative care [] [] Receiving care in room [] Pre-surgical visit [] Trauma [] Long length of stay [] ICU visit [] Other: Relational/Emotional Strength [] Patient feels connected with others/family/visitors/staff [] Distress [] Loneliness/isolation [] Abandonment Spirituality of Patient [] Person of Kassie [] Attends Christianity of their Kassie [] Believes in Prayer [] Reads Bible or Christianity materials [] There are Spiritual issues to be addressed Automobile Mechanic Motor Interventions [x] Prayer [x] Active listening [x] Non-anxious presence [x] Spiritual/emotional support [] Crisis/trauma care [] Spiritual counseling [] Bereavement support [] Provided bereavement packet [] Provided Bible/devotional materials [] Provided toy/stuffed animal, coloring book to patient or family member [] Provided Communion [] Anointing/[place] [] Salvation [x] Completed spiritual assessment [] Other: Impact on Illness or Injury [] Angry [] Fearful [] Anxious [] Often cries [] Exhaustion [] Unable to work [] Unable to attend latter day [] Unable to walk/stand [] Unable to read [] Unable to drive [] Unable to eat/drink [] Unable to sleep [] Unable to be with family [] Patient intubated [] Other: Summary patient still having pain, doesnt care for medication. Time spent with patient 5 min
[2020-01-04] MEDS: sodium chloride 0.9% 1,000 ML 125 ML IV ×2 (11:42→21:37)
--- NOTE | 2020-01-04 12:40 | PM.PN ---
Subjective Subjective: Interval history: Requesting something to eat and drink, no N/V overnight. Had 1700 mL urine output overnight. French catheter remains in place. Hemodynamically stable, afebrile, on RA. Appears fatigued. Continues significant leukocytosis, stable hemoglobin, stable renal function. Medications: Reviewed: Yes Medication Review Details: Active Medications Generic Name Dose Route Start Last Admin Trade Name Freq PRN Reason Stop Dose Admin Bisacodyl 10 mg 01/03/20 17:41 01/04/20 08:57 Dulcolax PO 10 mg DAILY POLLY Administration Citalopram Hydrobr omide 20 mg 01/04/20 09:00 01/04/20 08:57 Celexa PO Not Given DAILY POLLY Dexamethasone 4 mg 01/03/20 16:30 01/04/20 11:42 Decadron IVP 4 mg Q6H POLLY Administration Dronabinol 5 mg 01/03/20 18:07 01/04/20 08:57 Marinol PO 5 mg BID POLLY Administration Enoxaparin Sodium 40 mg 01/03/20 18:07 01/03/20 20:24 Lovenox SUBCUT 40 mg Q24H POLLY Administration Famotidine 20 mg 01/03/20 18:07 01/04/20 08:45 Pepcid Inj IVP 20 mg Q12H POLLY Administration Sodium Chloride 1,000 mls @ 100 m ls/hr 01/03/20 16:30 01/04/20 11:42 Sodium Chloride 0.9% IV 125 mls/hr .Q10H POLLY Administration Lactulose 10 gm 01/03/20 17:41 01/04/20 08:57 Constulose PO 10 gm DAILY POLLY Administration Lorazepam 0.5 mg 01/04/20 02:30 01/04/20 08:45 Ativan IVP 0.5 mg Q6H POLLY Administration Magnesium Hydroxid e 15 ml 01/03/20 21:00 01/03/20 20:25 Milk Of Magnesia PO 15 ml BEDTIME POLLY Administration Morphine Sulfate 30 mg 01/03/20 18:07 01/04/20 08:58 Msir PO 30 mg Q4H PRN Administration Pain Multivitamins Ther apeutic 1 tab 01/04/20 09:00 01/04/20 08:45 Multivitamin Tab PO 1 tab DAILY POLLY Administration Ondansetron HCl 8 mg 01/03/20 16:21 Zofran IVP Q6H PRN NAUSEA AND VOMITI NG Prochlorperazine 10 mg 01/03/20 18:07 01/04/20 08:44 Compazine PO 10 mg BID POLLY Administration Promethazine HCl 12.5 mg 01/03/20 18:07 Phenergan IM Q6H PRN NAUSEA Tamsulosin HCl 0.4 mg 01/04/20 09:00 01/04/20 08:46 Flomax PO 0.4 mg DAILY POLLY Administration No Known Allergies Allergy (Verified 01/03/20 15:25) Vitals/I&O/Wt Last Vital Signs Temp 98.8 F 01/04/20 11:09 Pulse 72 01/04/20 11:09 Resp 16 01/04/20 11:09 BP 142/75 01/04/20 11:09 Pulse Ox 96 01/04/20 11:09 01/03/20 01/04/20 01/04/20 22:59 06:59 14:59 Intake Total 454.167 / 067.705 3082 / 1694.167 Output Total 1100 / 1100 600 / 1700 400 / 400 Balance -645.833 / -645.833 640 / -5.833 -400 / -400 Weight last 48 hrs Weight 94.529 kg Weight 90.718 kg Physical Exam Const: COMMON NORMALS: no acute distress, patient oriented x3 and alert GENERAL APPEARANCE: cooperative and comfortable ORIENTATION/CONSCIOUSNESS: Yes awake OTHER: -appears fatigued, resting in bed HENMT: COMMON NORMALS: normocephalic, atraumatic, hearing grossly normal bilaterally and moist oral mucous membranes HEAD & SCALP: normocephalic and atraumatic Eye: COMMON NORMALS: Equal, round and reactive pupils present, EOMs intact bilaterally and conjunctivae normal CONJUNCTIVA: Yes conjunctivae normal PUPIL: Yes Equal, round and reactive pupils present Neck/C-Spine: COMMON NORMALS: full ROM GENERAL: Yes normal visual inspection and Yes trachea midline Chest: CHEST: Yes Vascular access present (port-A-cath in place) Resp: COMMON NORMALS: normal respiratory effort, No retractions, No use of accessory muscles and clear to auscultation bilaterally EFFORT & INSPECTION: Yes able to speak in complete sentences, Yes symmetric chest movement and No tachypneic AUSCULTATION: clear to auscultation bilaterally OTHER: -on RA Cardio: COMMON NORMALS: regular rate, regular rhythm, S1 normal heart sound present, S2 normal heart sound present and No murmurs present (Cardio) RATE: regular rate RHYTHM: regular rhythm HEART SOUNDS: S1 normal heart sound present and S2 normal heart sound present GI: COMMON NORMALS: Normal to inspection, nondistended, normoactive bowel sounds present, Soft to palpation and non-tender PALPATION: Yes Soft to palpation : BLADDER/KIDNEY EXAM: Yes catheter in place Catheter type (Male): urethral Extremity: COMMON NORMALS: normal to inspection, full ROM and no clubbing, cyanosis or edema; negative for no pedal edema Neuro: COMMON NORMALS: patient oriented x3, moves all extremities, no focal motor deficits, no sensory deficits noted and gait normal SENSORIUM/ORIENTATION: Yes alert Psych: COMMON NORMALS: mental status grossly normal, Normal thought process present, cooperative, normal affect and speech normal SPEECH: Yes normal speech THOUGHT PROCESS: Normal thought process present Skin: COMMON NORMALS: no rashes or lesions noted, no jaundice, no petechiae and no mottling GENERAL SKIN EXAM: no rashes or lesions noted Urinary Catheter Management^: French: Cath Placed During This Visit: yes Reason for Continuing Indwelling Catheter: Acute Urinary Retention or Obstruction Urinary Catheter Date of Insertion: 01/03/20 Urinary Catheter Time of Insertion: 14:31 Data : 01/04/20 03:48 01/04/20 03:48 Micro: Microbiology 01/03/20 14:28 Legionella Urinary Antigen - Final Urine Catheterized 01/03/20 18:38 Blood Culture - Preliminary Blood SPECIMEN COLLECTED 01/03/20 12:42 Blood Culture - Preliminary Blood SPECIMEN COLLECTED A&P Assessment and plan (1) Intractable vomiting with nausea: -seems to be improving -IVF hydration -has tolerated CLD, advance to GI soft -likely related to recent chemotherapy Status: Acute (2) Acute urinary retention: -French catheter placed in ED -on flomax -continue to monitor urine output -Urology outpatient f/u Status: Acute (3) Acute dehydration: -on IVF hydration -secondary to poor oral intake and GI losses Status: Acute (4) Weakness: -likely secondary to dehydration -fall precautions -PT evaluation Status: Acute (5) Metastatic adenocarcinoma: -metastatic pancreatic cancer, mets to liver -follows up with Dr. Ventura -on active chemotherapy, last treatment was 12/29, received Neulasta -noted significant leukocytosis Status: Chronic (6) Non-insulin dependent type 2 diabetes mellitus: -A1c-5.7 -Accucheks, ISS, hypoglycemia precautions -noted hyperglycemia likely secondary to steroids Status: Chronic (7) HLD (hyperlipidemia): Status: Chronic Qualifiers: Hyperlipidemia type: unspecified Qualified Code(s): E78.5 - Hyperlipidemia, unspecified Additional A&P Information -GI soft diet -GI ppx with famotidine -DVT ppx with lovenox -Dispo: home -Code status: DNR/DNI -change to inpatient status due to need for continued IVF hydration Attestations Medical Necessity Statement*: Patient requires hospitalization for continued IVF hydration, management of dehydration. Time Spent in Patient Care: 16 - 35 minutes (>than 50% of time spent in counselling and/or direct pt care on unit). Coding Level of Care Code Acute Educational Adviser for Chg Fwd Diagnoses Intractable vomiting with nausea R11.2 Acute urinary retention R33.8 Acute dehydration E86.0 Weakness R53.1 Metastatic adenocarcinoma C79.9 Non-insulin dependent type 2 diabetes mellitus E11.9 HLD (hyperlipidemia) E78.5 Hyperlipidemia type: unspecified
[2020-01-04 17:55] LABS: Glucose Point of Care 203 mg/dL (70-110)
[2020-01-04] MEDS: enoxaparin 40 mg/0.4 mL Syringe SUBCUT (21:16)
[2020-01-04] MEDS: magnesium hydroxide 30 mL UDC 15 ML PO (21:16)
[2020-01-05] VITALS (9 sets, daily range): BP systolic 112–158; BP diastolic 62–79; PULSE 60–75; RESP 16–18; TEMP 36.6–37.6; O2SAT 96–98
[2020-01-05] MEDS: LORazepam 2 mg/mL INJ 1 mL 0.5 MG IVP ×4 (03:24→21:35)
[2020-01-05] MEDS: dexamethasone 4 mg/mL INJ IVP ×2 (03:30→10:45)
[2020-01-05 06:21] LABS: Basophils # 0.2 10^3/uL (0.0-0.1); Basophils % 0.4 %; Hematocrit 30.3 % (42.0-52.0); Hemoglobin 10.3 g/dL (11.7-16.6); Lymphocytes # 0.7 10^3/uL (0.8-4.8); Lymphocytes % 1.5 %; Mean Corpuscular Hemoglobin 29.9 pg (28.0-34.0); Mean Corpuscular Volume 87.8 fL (80-94); Mean Platelet Volume 9.5 fL (7.4-10.4); Monocytes # 0.8 10^3/uL (0.2-0.9); Monocytes % 1.9 %; Neutrophils # 41.98 10^3/uL (1.8-7.7); Neutrophils % 95.1 %; Nucleated Red Blood Cells % 0 %; Platelet Count 322 10^3/cmm (130-400); Red Blood Count 3.45 10^6/uL (4.1-5.3); Red Cell Distribution Width 16.4 % (12.1-15.1)
[2020-01-05 06:33] LABS: Glucose Point of Care 205 mg/dL (70-110)
[2020-01-05 06:33] LABS: Anion Gap 13.2 (5-19); Blood Urea Nitrogen 12 mg/dL (8-23); Calcium 9.2 mg/dL (8.5-10.5); Carbon Dioxide 27 mmol/L (22-29); Chloride 97 mmol/L (98-107); Glomerular Filtration Rate 136.1 mL/min (90-130); Glucose 207 mg/dL (65-115); Osmolality Calculated 282 mOsm/kg (285-295); Potassium 4.2 mmol/L (3.5-5.1); Sodium 133 mmol/L (136-145)
[2020-01-05 07:09] LABS: White Blood Count 44.2 10^3/uL (4.0-10.0)
--- NOTE | 2020-01-05 07:23 | PC.NURSE ---
Notified Dr Vega and care nurse that patient has WBC of 44.2
[2020-01-05] MEDS: multivitamin therapeutic Tablet 1 TAB PO (09:00)
[2020-01-05] MEDS: bisacodyl 5 mg Tablet 10 MG PO (09:00)
[2020-01-05] MEDS: lactulose oral liq 20 gm/30 mL UDC 10 GM PO (09:00)
[2020-01-05] MEDS: tamsulosin 0.4 mg Capsule PO (09:00)
[2020-01-05] MEDS: prochlorperazine 10 mg Tablet PO ×2 (09:00→17:37)
[2020-01-05] MEDS: dronabinol 2.5 mg Capsule 5 MG PO ×2 (09:00→17:37)
[2020-01-05] MEDS: famotidine 20 mg/2 mL INJ IVP ×2 (09:00→21:35)
--- NOTE | 2020-01-05 09:48 | PC.CHAP ---
Pastoral Care Encounter/Spiritual Assessment Type of Contact [] Declined welder journeyman visit [] Patient/Family/Request visit [] Outpatient visit [] Follow-up visit [] Physician referral [] Code/Alert [] Routine visit [] Staff referral [x] Actively dying [] Patient sleeping [] Family support [] [] Out of room [] Palliative care [] [] Receiving care in room [] Pre-surgical visit [] Trauma [] Long length of stay [] ICU visit [] Other: Relational/Emotional Strength [] Patient feels connected with others/family/visitors/staff [] Distress [] Loneliness/isolation [] Abandonment Spirituality of Patient [x] Person of Kassie [] Attends Jehovah'S Witness of their [place] [] Believes in Prayer [] Reads Bible or Orthodox materials [] There are Spiritual issues to be addressed Line Service Person Interventions [x] Prayer [x] Active listening [] Non-anxious presence [] Spiritual/emotional support [] Crisis/trauma care [x] Spiritual counseling [] Bereavement support [] Provided bereavement packet [] Provided Bible/devotional materials [] Provided toy/stuffed animal, coloring book to patient or family member [] Provided Communion [] Anointing/[place] [] Salvation [] Completed spiritual assessment [] Other: Impact on Illness or Injury [] Angry [x] Fearful [] Anxious [] Often cries [] Exhaustion [] Unable to work [] Unable to attend scientology [] Unable to walk/stand [] Unable to read [] Unable to drive [] Unable to eat/drink [] Unable to sleep [] Unable to be with family [] Patient intubated [] Other: Summary pain Time spent with patient 20 min
[2020-01-05] MEDS: morphine IR 15 mg Tablet 30 MG PO ×3 (10:44→21:41)
[2020-01-05 10:49] LABS: Glucose Point of Care 189 mg/dL (70-110)
--- NOTE | 2020-01-05 11:04 | PC.NURSE ---
French Catheter removed at this time at patient's request. Patient verbalized understanding that nursing will need to replace catheter if patient is unable to urinate or is retaining urine.
--- NOTE | 2020-01-05 12:20 | PM.PN ---
Subjective Subjective: Interval history: Hemodynamically stable, afebrile, on RA, had 1600 mL urine output overnight. Decreasing leukocytosis, stable Hg and renal function. Tolerating oral intake. Voiding trial today per his preference, understands that catheter would need to be replaced if unable to void independently. Was able to tolerate some breakfast and some lunch. Has been ambulating some in the room. Not yet voided. Medications: Reviewed: Yes Medication Review Details: Active Medications Generic Name Dose Route Start Last Admin Trade Name Freq PRN Reason Stop Dose Admin Bisacodyl 10 mg 01/03/20 17:41 01/05/20 09:00 Dulcolax PO 10 mg DAILY POLLY Administration Citalopram Hydrobr omide 20 mg 01/04/20 09:00 01/05/20 09:00 Celexa PO Not Given DAILY POLLY Dexamethasone 4 mg 01/03/20 16:30 01/05/20 10:45 Decadron IVP 4 mg Q6H PLOLY Administration Dextrose 25 ml 01/04/20 12:48 D50w IVP ONCE PRN hypoglycemia prot ocol Protocol Dextrose 50 ml 01/04/20 12:48 D50w IVP PRN PRN hypoglycemia prot ocol Protocol Dronabinol 5 mg 01/03/20 18:07 01/05/20 09:00 Marinol PO 5 mg BID POLLY Administration Enoxaparin Sodium 40 mg 01/03/20 18:07 01/04/20 21:16 Lovenox SUBCUT 40 mg Q24H POLLY Administration Famotidine 20 mg 01/03/20 18:07 01/05/20 09:00 Pepcid Inj IVP 20 mg Q12H POLLY Administration Glucagon 1 mg 01/04/20 12:48 Glucagen IM ONCE PRN Adult Acute Hypog lycemia Prot. Protocol Sodium Chloride 1,000 mls @ 100 m ls/hr 01/03/20 16:30 01/04/20 21:37 Sodium Chloride 0.9% IV 125 mls/hr .Q10H POLLY Administration Dextrose 500 mls @ 100 mls /hr 01/04/20 12:48 D5w IV ONCE PRN Adult Acute Hypog lycemia Prot Protocol Insulin Aspart 0 unit 01/04/20 18:00 01/05/20 09:00 Novolog SUBCUT 4 unit WM&BEDTIME POLLY Administration Protocol Lactulose 10 gm 01/03/20 17:41 01/05/20 09:00 Constulose PO 10 gm DAILY POLLY Administration Lorazepam 0.5 mg 01/04/20 02:30 01/05/20 09:00 Ativan IVP 0.5 mg Q6H POLLY Administration Magnesium Hydroxid e 15 ml 01/03/20 21:00 01/04/20 21:16 Milk Of Magnesia PO 15 ml BEDTIME POLLY Administration Morphine Sulfate 30 mg 01/03/20 18:07 01/05/20 10:44 Msir PO 30 mg Q4H PRN Administration Pain Multivitamins Ther apeutic 1 tab 01/04/20 09:00 01/05/20 09:00 Multivitamin Tab PO 1 tab DAILY POLLY Administration Ondansetron HCl 8 mg 01/03/20 16:21 Zofran IVP Q6H PRN NAUSEA AND VOMITI NG Prochlorperazine 10 mg 01/03/20 18:07 01/05/20 09:00 Compazine PO 10 mg BID POLLY Administration Promethazine HCl 12.5 mg 01/03/20 18:07 Phenergan IM Q6H PRN NAUSEA Tamsulosin HCl 0.4 mg 01/04/20 09:00 01/05/20 09:00 Flomax PO 0.4 mg DAILY POLLY Administration No Known Allergies Allergy (Verified 01/03/20 15:25) Vitals/I&O/Wt Last Vital Signs Temp 98.1 F 01/05/20 11:12 Pulse 66 01/05/20 11:12 Resp 16 01/05/20 11:12 BP 129/78 01/05/20 11:12 Pulse Ox 96 01/05/20 11:12 01/04/20 01/05/20 01/05/20 22:59 06:59 14:59 Intake Total 1200 / 1320 360 / 360 Output Total 1600 / 1999 1600 / 3600 500 / 500 Balance -400 / -680 -1600 / -2280 -140 / -140 Weight last 48 hrs Weight 90.9 kg Weight 94.529 kg Physical Exam Const: COMMON NORMALS: no acute distress, patient oriented x3 and alert GENERAL APPEARANCE: cooperative and comfortable ORIENTATION/CONSCIOUSNESS: Yes awake OTHER: -appears fatigued, resting in bed HENMT: COMMON NORMALS: normocephalic, atraumatic, hearing grossly normal bilaterally and moist oral mucous membranes HEAD & SCALP: normocephalic and atraumatic Eye: COMMON NORMALS: Equal, round and reactive pupils present, EOMs intact bilaterally and conjunctivae normal CONJUNCTIVA: Yes conjunctivae normal PUPIL: Yes Equal, round and reactive pupils present Neck/C-Spine: COMMON NORMALS: full ROM GENERAL: Yes normal visual inspection and Yes trachea midline Chest: CHEST: Yes Vascular access present (port-A-cath in place) Resp: COMMON NORMALS: normal respiratory effort, No retractions, No use of accessory muscles and clear to auscultation bilaterally EFFORT & INSPECTION: Yes able to speak in complete sentences, Yes symmetric chest movement and No tachypneic AUSCULTATION: clear to auscultation bilaterally OTHER: -on RA Cardio: COMMON NORMALS: regular rate, regular rhythm, S1 normal heart sound present, S2 normal heart sound present and No murmurs present (Cardio) RATE: regular rate RHYTHM: regular rhythm HEART SOUNDS: S1 normal heart sound present and S2 normal heart sound present GI: COMMON NORMALS: Normal to inspection, nondistended, normoactive bowel sounds present, Soft to palpation and non-tender PALPATION: Yes Soft to palpation Extremity: COMMON NORMALS: normal to inspection, full ROM and no clubbing, cyanosis or edema; negative for no pedal edema Neuro: COMMON NORMALS: patient oriented x3, moves all extremities, no focal motor deficits, no sensory deficits noted and gait normal SENSORIUM/ORIENTATION: Yes alert Psych: COMMON NORMALS: mental status grossly normal, Normal thought process present, cooperative, normal affect and speech normal SPEECH: Yes normal speech THOUGHT PROCESS: Normal thought process present Skin: COMMON NORMALS: no rashes or lesions noted, no jaundice, no petechiae and no mottling GENERAL SKIN EXAM: no rashes or lesions noted Urinary Catheter Management^: French: Cath Placed During This Visit: yes Reason for Continuing Indwelling Catheter: Acute Urinary Retention or Obstruction Urinary Catheter Date of Insertion: 01/03/20 Urinary Catheter Time of Insertion: 14:31 Data : 01/05/20 05:48 01/05/20 05:48 Micro: Microbiology 01/03/20 18:38 Blood Culture - Preliminary Blood NEGATIVE TO DATE 01/03/20 20:37 MRSA Culture - Final Nose 01/03/20 12:42 Blood Culture - Preliminary Blood NEGATIVE TO DATE A&P Assessment and plan (1) Intractable vomiting with nausea: -seems to be improving -IVF hydration -tolerating GI soft diet -likely related to recent chemotherapy Status: Acute (2) Acute urinary retention: -French catheter placed in ED; voiding trial today per his preference. Understands that French catheter may need to be replaced if unable to void -on flomax -continue to monitor urine output; good output so far -Urology outpatient f/u Status: Acute (3) Acute dehydration: -on IVF hydration; improving -secondary to poor oral intake and GI losses Status: Acute (4) Weakness: -likely secondary to dehydration -fall precautions -PT evaluation appreciated; able to ambulate 200 feet, discharged from PT Status: Acute (5) Metastatic adenocarcinoma: -metastatic pancreatic cancer, mets to liver -follows up with Dr. Ventura -on active chemotherapy, last treatment was 12/29, received Neulasta -noted significant leukocytosis, trending down Status: Chronic (6) Non-insulin dependent type 2 diabetes mellitus: -A1c-5.7 -Accucheks, ISS, hypoglycemia precautions -noted hyperglycemia likely secondary to steroids Status: Chronic (7) HLD (hyperlipidemia): Status: Chronic Qualifiers: Hyperlipidemia type: unspecified Qualified Code(s): E78.5 - Hyperlipidemia, unspecified Additional A&P Information -GI soft diet -GI ppx with famotidine -DVT ppx with lovenox -Dispo: home -Code status: DNR/DNI Attestations Medical Necessity Statement*: Patient requires hospitalization for continued IVF hydration, voiding trial given urinary retention that required French catheter placement. Time Spent in Patient Care: 16 - 35 minutes (>than 50% of time spent in counselling and/or direct pt care on unit). Coding Level of Care Code Acute [employer] for [employer] F[employer] Exam Comprehensive Diagnoses Intractable vomiting with nausea R11.2 Acute urinary retention R33.8 Acute dehydration E86.0 Weakness R53.1 Metastatic adenocarcinoma C79.9 Non-insulin dependent type 2 diabetes mellitus E11.9 HLD (hyperlipidemia) E78.5 Hyperlipidemia type: unspecified
[2020-01-05] MEDS: sodium chloride 0.9% 1,000 ML 125 ML IV (12:27)
[2020-01-05 16:55] LABS: Glucose Point of Care 214 mg/dL (70-110)
[2020-01-05] MEDS: magnesium hydroxide 30 mL UDC 15 ML PO (21:35)
[2020-01-05] MEDS: enoxaparin 40 mg/0.4 mL Syringe SUBCUT (21:36)
[2020-01-05 22:37] LABS: Glucose Point of Care 125 mg/dL (70-110)
[2020-01-06] VITALS: BP 117/62; PULSE 62; RESP 18; TEMP 36.8; O2SAT 97
[2020-01-06] MEDS: LORazepam 2 mg/mL INJ 1 mL 0.5 MG IVP ×2 (02:27→09:28)
[2020-01-06 04:00] VITALS: BP 147/70; PULSE 57; RESP 18; TEMP 36.6; O2SAT 97
[2020-01-06 05:10] LABS: Basophils # 0.1 10^3/uL (0.0-0.1); Basophils % 0.3 %; Eosinophils # 0.1 10^3/uL (0.0-0.8); Eosinophils % 0.6 %; Hematocrit 29.4 % (42.0-52.0); Hemoglobin 9.6 g/dL (11.7-16.6); Lymphocytes # 1.4 10^3/uL (0.8-4.8); Lymphocytes % 6.7 %; Mean Corpuscular HGB Conc 32.7 g/dL (30.0-36.0); Mean Corpuscular Hemoglobin 29.8 pg (28.0-34.0); Mean Corpuscular Volume 91.3 fL (80-94); Mean Platelet Volume 9.2 fL (7.4-10.4); Monocytes # 1.3 10^3/uL (0.2-0.9); Monocytes % 6.2 %; Neutrophils # 18.13 10^3/uL (1.8-7.7); Neutrophils % 85.1 %; Nucleated Red Blood Cells % 0 %; Platelet Count 259 10^3/cmm (130-400); Red Blood Count 3.22 10^6/uL (4.1-5.3); Red Cell Distribution Width 16.8 % (12.1-15.1); White Blood Count 21.3 10^3/uL (4.0-10.0)
[2020-01-06 06:26] LABS: Glucose Point of Care 137 mg/dL (70-110)
[2020-01-06 07:11] VITALS: BP 140/79; PULSE 56; RESP 17; TEMP 36.6; O2SAT 96
[2020-01-06 09:25] VITALS: RESP 18; O2SAT 96
[2020-01-06] MEDS: morphine IR 15 mg Tablet 30 MG PO (09:25)
[2020-01-06] MEDS: dronabinol 2.5 mg Capsule 5 MG PO (09:26)
[2020-01-06] MEDS: multivitamin therapeutic Tablet 1 TAB PO (09:26)
[2020-01-06] MEDS: citalopram 20 mg Tablet PO (09:26)
[2020-01-06] MEDS: tamsulosin 0.4 mg Capsule PO (09:26)
[2020-01-06] MEDS: bisacodyl 5 mg Tablet 10 MG PO (09:27)
[2020-01-06] MEDS: lactulose oral liq 20 gm/30 mL UDC 10 GM PO (09:27)
[2020-01-06] MEDS: prochlorperazine 10 mg Tablet PO (09:27)
[2020-01-06] MEDS: famotidine 20 mg/2 mL INJ IVP (09:32)
[2020-01-06] MEDS: sodium chloride 0.9% 1,000 ML 50 ML IV (09:38)
--- NOTE | 2020-01-06 11:10 | PM.DCS ---
Discharge Providers Date of Admission: 01/04/20 12:50 Date of Discharge: January 06, 2020 Attending Provider at Admission: Ricardo Barnes MD Attending Provider at Discharge: Jacqueline Vega MD Consults: None Primary Care Provider: Glo Medina DO Diagnoses at Discharge Discharge Diagnosis (1) Intractable vomiting with nausea: Status: Resolved Permanent problem details: -resolved, tolerating oral intake without difficulty -IVF hydration -likely related to recent chemotherapy (2) Acute urinary retention: Status: Resolved Permanent problem details: -voiding trial yesterday with removal of French catheter; able to void independently without difficulty -continue flomax (3) Acute dehydration: Status: Resolved Permanent problem details: -improved with IVF hydration, good oral intake (4) Weakness: Status: Acute Permanent problem details: -likely secondary to dehydration -fall precautions -PT evaluation appreciated; able to ambulate 200 feet, discharged from PT (5) Metastatic adenocarcinoma: Status: Chronic Permanent problem details: -metastatic pancreatic cancer, mets to liver -follows up with Dr. Ventura -on active chemotherapy, last treatment was 12/29, received Neulasta -noted significant leukocytosis, trending down especially with discontinuation of steroids (6) Non-insulin dependent type 2 diabetes mellitus: Status: Chronic Permanent problem details: -A1c-5.7 -Accucheks, ISS, hypoglycemia precautions -noted hyperglycemia likely secondary to steroids (7) HLD (hyperlipidemia): Status: Chronic Qualifiers: Hyperlipidemia type: unspecified Qualified Code(s): E78.5 - Hyperlipidemia, unspecified Reason for Visit Reason for Visit: dehydrated/ABD pain Hospital Course Hospital Course: Patient was admitted to the medical surgical floor and started on IV fluid hydration secondary to noted intractable nausea and vomiting and associated acute dehydration. He was noted to have acute urinary retention for which French catheter was placed in the ER. He has had good urine output and with continued hydration has had symptomatic improvement as well. Nausea and vomiting have resolved and has been able to tolerate oral intake without difficulty. Voiding trial was done with removal of French catheter and patient has been able to void independently without difficulty. Flomax has been added and should he have additional issues with urinary retention, he may require Urology evaluation. He was noted to have significant leukocytosis that has since been trending down particularly with discontinuation of steroids. Infectious work-up was done and so far has been negative. He will require continued follow-up with oncology as well as his primary care provider. He has been hemodynamically stable, consistently afebrile and maintained on room air. Discharge Summary: -Patient to follow up with primary care provider within 1 week -Patient to continue to follow up with Dr. Ventura Physical Exam Const: COMMON NORMALS: no acute distress, patient oriented x3 and alert GENERAL APPEARANCE: cooperative and comfortable ORIENTATION/CONSCIOUSNESS: Yes awake OTHER: -resting in bed HENMT: COMMON NORMALS: normocephalic, atraumatic, hearing grossly normal bilaterally and moist oral mucous membranes HEAD & SCALP: normocephalic and atraumatic Eye: COMMON NORMALS: Equal, round and reactive pupils present, EOMs intact bilaterally and conjunctivae normal CONJUNCTIVA: Yes conjunctivae normal PUPIL: Yes Equal, round and reactive pupils present Neck/C-Spine: COMMON NORMALS: full ROM GENERAL: Yes normal visual inspection and Yes trachea midline Chest: CHEST: Yes Vascular access present (port-A-cath in place) Resp: COMMON NORMALS: normal respiratory effort, No retractions, No use of accessory muscles and clear to auscultation bilaterally EFFORT & INSPECTION: Yes able to speak in complete sentences, Yes symmetric chest movement and No tachypneic AUSCULTATION: clear to auscultation bilaterally OTHER: -on RA Cardio: COMMON NORMALS: regular rate, regular rhythm, S1 normal heart sound present, S2 normal heart sound present and No murmurs present (Cardio) RATE: regular rate RHYTHM: regular rhythm HEART SOUNDS: S1 normal heart sound present and S2 normal heart sound present GI: COMMON NORMALS: Normal to inspection, nondistended, normoactive bowel sounds present, Soft to palpation and non-tender PALPATION: Yes Soft to palpation : BLADDER/KIDNEY EXAM: Yes catheter in place Extremity: COMMON NORMALS: normal to inspection, full ROM and no clubbing, cyanosis or edema; negative for no pedal edema Neuro: COMMON NORMALS: patient oriented x3, moves all extremities, no focal motor deficits, no sensory deficits noted and gait normal SENSORIUM/ORIENTATION: Yes alert Psych: COMMON NORMALS: mental status grossly normal, Normal thought process present, cooperative, normal affect and speech normal SPEECH: Yes normal speech THOUGHT PROCESS: Normal thought process present Skin: COMMON NORMALS: no rashes or lesions noted, no jaundice, no petechiae and no mottling GENERAL SKIN EXAM: no rashes or lesions noted Urinary Catheter Management^: French: Cath Placed During This Visit: yes Reason for Continuing Indwelling Catheter: Acute Urinary Retention or Obstruction Urinary Catheter Date of Insertion: 01/03/20 Urinary Catheter Time of Insertion: 14:31 Discharge Data Data Completed and Pending: Completed Studies During Hospitalization Category Date Time Status CT abdomen pelvis wo con [id number] Urge nt Cat Scan 01/03/20 13:16 Completed XR chest 1V kristal ble [id number] Stat Exams 01/03/20 14:04 Completed Pending at discharge Category Date Time Status Blood Culture Sta t Lab 01/03/20 18:38 Results Clostridioides Di fficile PCR Routin e Lab 01/03/20 17:00 Ordered Enteric Bacterial Panel by PCR Rout ine Lab 01/03/20 17:00 Ordered Enteric Parasite Panel by PCR Routi ne Lab 01/03/20 17:00 Ordered Immunochemical Fe aric OCB Routine Lab 01/03/20 17:00 Ordered Lactoferrin Routi ne Lab 01/03/20 17:00 Ordered Labs from last 24 hours 01/06/20 01/06/20 01/05/20 06:23 04:22 19:48 WBC 21.3 H RBC 3.22 L Hgb 9.6 L Hct 29.4 L MCV 91.3 MCH 29.8 MCHC 32.7 RDW 16.8 H Plt Count 259 MPV 9.2 Neut % (Auto) 85.1 Lymph % (Auto) 6.7 [place] % (Auto) 6.2 Eos % (Auto) 0.6 Baso % (Auto) 0.3 Neut # (Auto) 18.13 H Lymph # (Auto) 1.4 [place] # (Auto) 1.3 H Eos # (Auto) 0.1 Baso # (Auto) 0.1 Nucleated RBC % (a uto) 0 Nucleated RBCs # 0.0 POC Glucose 137 125 01/05/20 16:25 WBC RBC Hgb Hct MCV MCH MCHC RDW Plt Count MPV Neut % (Auto) Lymph % (Auto) [place] % (Auto) Eos % (Auto) Baso % (Auto) Neut # (Auto) Lymph # (Auto) [place] # (Auto) Eos # (Auto) Baso # (Auto) Nucleated RBC % (a uto) Nucleated RBCs # POC Glucose 214 Vitals: Last Vital Signs Temp 97.9 F 01/06/20 07:11 Pulse 56 L 01/06/20 07:11 Resp 18 01/06/20 09:25 BP 140/79 01/06/20 07:11 Pulse Ox 96 01/06/20 09:25 Discharge Plan Discharge Patient Disposition: Home Condition: Stable Prescriptions: New tamsulosin 0.4 mg Capsule 0.4 mg PO DAILY Qty: 30 RF: 0 Continued lorazepam 1 mg tablet 1 mg PO Q6H RF: 0 Januvia 100 mg tablet 100 mg PO DAILY Qty: 30 RF: 1 glipizide 5 mg tablet extended release 24hr 5 mg PO DAILY Qty: 30 RF: 1 Fish Oil 1 cap PO DAILY RF: 0 Hold Instructions: Resume on 11/14/19. Multiple Vitamins Tablet 1 tab PO DAILY RF: 0 dronabinol 5 mg capsule 5 mg PO BID RF: 0 ondansetron HCl 8 mg tablet 8 mg PO TID PRN (Reason: Nausea) RF: 0 prochlorperazine maleate 10 mg tablet 10 mg PO BID RF: 0 morphine 30 mg tablet 30 mg PO Q4H PRN (Reason: Pain) RF: 0 citalopram 20 mg Tablet 20 mg PO DAILY RF: 0 pantoprazole 40 mg Tablet,Delayed Release (Dr/Ec) 40 mg PO DAILY RF: 0 Discontinued dexamethasone 4 mg tablet See Rx Instructions .ROUTE .COMPLEX RF: 0 Discharge Orders: Discharge Order (Routine); Ordered 01/06/20 Ordered By: Jacqueline Vega Referrals: Glo Medina DO [Primary Care Provider] - 4-7 days (Post hospital discharge follow up) Nakul Ventura MD [Hospitalist] - 1 week Discharge Diet: Advance as tolerated and Diabetic Discharge Activity: Increase activity as tolerated and As per PT/OT instructions Discharge Attestations Time Spent in Discharge Care*: greater than 30 min Specific Discharge Activities: Specific discharge activities: educating patient, discussing with mattress spring encaser/social workers/dc planners, documenting/other paperwork and evaluating patient/reviewing data Status at Discharge: Cognitive status at discharge: cognitively intact, Behavioral status at discharge: cooperative and independent in ADL's, Functional status at discharge: independent ambulation Overall status at discharge: patient is progressing back to baseline Quality Metrics Clinical Quality Measures During this hospital stay, did patient experience: None Coding Level of Care Code Acute [employer] for [employer] Diagnoses Intractable vomiting with nausea R11.2 Acute urinary retention R33.8 Acute dehydration E86.0 Weakness R53.1 Metastatic adenocarcinoma C79.9 Non-insulin dependent type 2 diabetes mellitus E11.9 HLD (hyperlipidemia) E78.5 Hyperlipidemia type: unspecified
[2020-01-06 11:14] VITALS: BP 140/89; PULSE 72; RESP 17; TEMP 37; O2SAT 98
[2020-01-06 11:45] VITALS: BP 140/89; PULSE 72; RESP 17; TEMP 37; O2SAT 98
[2020-01-06 13:02] LABS: Glucose Point of Care 147 mg/dL (70-110)
== END 2020-01-06 13:45 | disposition home or self-care (01) | DRG 641 ==
LOC: ER 16:31 → MEDSURG 16:35
PROVIDERS: Family Medicine; Admitting Provider Student in an Organized Health Care Education/Training Program; PCP Family Medicine; Visit Provider Family Medicine
DX: E86.0 Dehydration (principal); C25.1 Malignant neoplasm of body of pancreas; C78.7 Secondary malignant neoplasm of liver and intrahepatic bile duct; C77.2 Secondary and unspecified malignant neoplasm of intra-abdominal lymph nodes; Z79.899 Other long term (current) drug therapy; E11.9 Type 2 diabetes mellitus without complications; E78.5 Hyperlipidemia, unspecified; M54.6 Pain in thoracic spine; Z86.73 Personal history of transient ischemic attack (TIA), and cerebral infarction without residual deficits; R33.9 Retention of urine, unspecified; K29.70 Gastritis, unspecified, without bleeding; Z66 Do not resuscitate; R11.2 Nausea with vomiting, unspecified; Z79.84 Long term (current) use of oral hypoglycemic drugs
CPT/HCPCS: 12345; 36415; 36416; 36591; 51702; 71045; 74176; 80048; 80053; 80500; 81003; 82550; 82962; 83036; 83540; 83550; 83605; 83690; 83735; 84100; 84145; 85007; 85025; 86140; 87040; 87449; 87641; 96372; 96375; 97116; 97161; 99283; G0378; J1100; J1170; J1650; J1815; J2060; J2405; J3490; J7030; Q0164; Q0167

== ENCOUNTER 2020-01-27 05:42 | Outpatient (RCR) | payer MEDICAID, SELFPAY ==
[2020-01-13 08:28] LABS: Basophils # 0.1 10^3/uL (0.0-0.1); Basophils % 0.6 %; Eosinophils # 0.2 10^3/uL (0.0-0.8); Eosinophils % 2.2 %; Lymphocytes # 0.8 10^3/uL (0.8-4.8); Lymphocytes % 10.2 %; Mean Corpuscular HGB Conc 31.3 g/dL (30.0-36.0); Mean Corpuscular Hemoglobin 29.5 pg (28.0-34.0); Mean Corpuscular Volume 94.4 fL (80-94); Mean Platelet Volume 9.3 fL (7.4-10.4); Monocytes # 0.5 10^3/uL (0.2-0.9); Monocytes % 6.5 %; Neutrophils # 6.17 10^3/uL (1.8-7.7); Neutrophils % 79.9 %; Nucleated Red Blood Cells % 0 %; Platelet Count 285 10^3/cmm (130-400); Red Blood Count 3.39 10^6/uL (4.1-5.3); Red Cell Distribution Width 17.2 % (12.1-15.1); White Blood Count 7.7 10^3/uL (4.0-10.0)
[2020-01-13 08:53] LABS: Alanine Aminotransferase 17 U/L (0-41); Albumin Level 3.8 g/dL (3.5-5.2); Alkaline Phosphatase 155 IU/L (40-130); Anion Gap 11.3 (5-19); Aspartate Amino Transferase 14 U/L (0-40); Blood Urea Nitrogen 6 mg/dL (8-23); Calcium 9.4 mg/dL (8.5-10.5); Carbon Dioxide 31 mmol/L (22-29); Chloride 101 mmol/L (98-107); Globulin 2.8 g/dL (1.3-4.6); Glomerular Filtration Rate 135.6 mL/min (90-130); Glucose 111 mg/dL (65-115); Osmolality Calculated 286 mOsm/kg (285-295); Potassium 4.3 mmol/L (3.5-5.1); Sodium 139 mmol/L (136-145); Total Bilirubin 0.2 mg/dL (0.15-1.2); Total Protein 6.6 g/dL (6.6-8.7)
--- NOTE | 2020-01-19 20:54 | ONC FU_ITS ---
[facility] Patient Note Patient: Leonidas Swenson Unit #: [id number]: 1955 Dictated By: Cayden NoeDate of Visit: Jan 13, 2020 Onc MED Follow-Up/Prog Note Chief Complaint: Pancreatic cancer. History of Present Illness: Mr Swenson is a 64 year-old man had been seen initially with celiac axis, aortocaval, and retroperitoneal lymphadenopathy. He now has been confirmed to have pancreatic adenocarcinoma. He has type 2 diabetes and hyperlipidemia. Sometime within the past year or so he began having pain in his stomach and back. The pain gradually worsened, and he developed additional symptoms including anorexia, postprandial vomiting, and progressive weakness. He has had weight loss in the range of 40 pounds over a period of 3 months. 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 On 07/25/2019 he presented to the emergency room with abdominal pain. His CT abdomen/pelvis showed the pancreatic tail to be either absent or very atrophic. Pancreatic body was noted to be mildly hypodense, but the appearance was nonspecific. Prominent lymph nodes were noted, including a 2 x 1.4 cm peripancreatic lymph node as well as prominent retroperitoneal para-aortic lymph nodes. The lipase was normal. Further evaluation with cholangiopancreatography MRI on 08/06/2019 showed normal signal within the pancreas with mildly truncated distal pancreas, felt to be likely a normal variant. 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 The gallbladder showed no abnormal findings. He was seen in the ER again on 08/17/2019. CT abdomen/pelvis showed similar findings. Abdominal MRI on 08/31/2019 reported abnormal signal within the body and distal pancreas, but without evidence of enhancing mass. Again noted was aortocaval and periaortic adenopathy with the largest aortocaval node measuring 1.7 cm and a cluster of enlarged periaortic lymph nodes measuring 2.0 cm. An additional lymph node or other celiac axis measure 2.2 cm. MRI of the lumbar spine on 09/02/2019 showed degenerative changes at multiple levels, but no lytic bone disease or other evidence of malignancy. Dr Ventura had seen him initially on 09/07/2019. He then had further evaluation with PET/CT on 09/12/2019. It showed a 3.2 x 6.8 cm region of abnormal activity within the mid pancreas with SUV 7.0, consistent with primary pancreatic carcinoma. There was extensive FDG positive upper abdominal lymphadenopathy and there was an enlarged celiac lymph node measuring 2.9 cm with SUV 8.4, consistent with local metastatic disease. There is additional bilateral FDG avid lymph nodes, scattered FDG avid mesenteric lymph nodes, and FDG avid hepatic lesions, all consistent with metastatic disease. With those findings, he was referred to Dr. Deon Calderon at [facility]. He had further evaluation with EGD and upper abdominal EUS on 10/08/2019. The EGD did show some evidence of gastritis with negative gastric biopsy for helicobacter pylori. The upper EUS showed a 32.4 x 35.3 mm hypoechoic irregular mass in the body of the pancreas and a 24.8 x 25.5 mm hypoechoic ovoid celiac lymph node, both of which were evaluated with FNA biopsy. Pathology was positive for adenocarcinoma at both sites. Dr Ventura had seen him for a follow-up visit on 10/14/2019. At that point he indicated that he was interested in undergoing a trial of palliative chemotherapy, though with the understanding that the likelihood of benefit would be relatively low and that there would be potential for treatment related toxicity. He has since undergone placement of Port-A-Cath venous access device. He began his first cycle of Abraxane/gemcitabine on November 18, 2019. His day 8 treatment was held due to chemo induced neutropenia his ANC on day 8 was 1000. He was given 2 doses of Neupogen and his blood counts recovered adequately to get treatment. Mr. Swenson is here today for follow-up. His last treatment of Abraxane/gemcitabine was on December 16, 2019. He tolerated it well. on December 30, 2019, he began a new treatment plan due to results of his [employer] of Health (NIH) Next gene sequencing indicating that he is BRCA 2 positive. The new treatment plan was FOLFOX. He began his first cycle on 12/30/2019. He did have supportive care with hydration and antiemetics on 12/31/2019 & 01/01/2020. He was admitted to [facility] on January 06, 2020 for intractable nausea and vomiting. He was discharged on January 06, 2020 with the nausea vomiting resolved. He also had acute dehydration at that time but that was corrected on his discharge. He states after the first treatment of FOLFOX he was really sick. He states that he has felt awful. He has recovered after discharge and is gradually getting better every day. He denies fever or chills. He denies any Covid symptoms or known exposure. He has no pending Covid test. He denies any new pain. His performance status is marginal. He states his bowels are normal for him he denies any urinary frequency hesitancy or hematuria. Denies any lower extremity edema. He denies any neuropathy symptoms at present. His ECOG is 2. Past Medical History: Hyperlipidemia Type II diabetes Past Surgical History: Biopsy of pancreas Lasik eye surgery bilaterally Right inguinal hernia repair Vasectomy Allergies: No Known Allergies. Medications: CeleXA 1 Tablet (of 20 mg) Oral daily Cinnamon 1 Capsule Oral daily Eszopiclone 1 Tablet (of 2 mg) Oral daily Fish Oil 1 Capsule Oral daily glipiZIDE XL 1 Tablet (of 5 mg) Tablet SR 24 HR Oral daily Januvia 1 Tablet (of 100 mg) Oral daily LORazepam 2 Tablet (of 1 mg) Oral at bedtime Morphine Sulfate 1 Tablet (of 30 mg) Oral q 4 hours PRN Multivitamin Adult 1 Tablet Oral daily Pantoprazole Sodium 1 Tablet (of 40 mg) Tablet, enteric coated Oral daily Tamsulosin HCl 1 Capsule (of 0.4 mg) Oral daily traMADol HCl 1 Tablet (of 50 mg) Oral q 6 hours PRN Family History: Mr. Swenson's mother is alive. Mr. Swenson's father at age 52: bone cancer. Mother is still living at age 82. Father at age 52 with cancer involving his jawbone. He has six siblings, all apparently in good health. Social History: Mr. 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 Mr. Swenson has never smoked. He has no history of drinking. Mr. Swenson reports the following support systems: lives alone, lives in own house, supportive family/friends willing to assist with needs, and transportation problems exist and will require assistance. His diet consists of regular meals. He indicates his activity level as: regular exercise. 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 He has not been able to work due to this illness. He is a nonsmoker. He does not drink alcohol. Review Of Symptoms: Constitutional Denies fevers, chills, night sweats, excessive fatigue. Appetite not improved with Marinol and is not great overall .. Allergic/Immunologic No reactions. Eyes Denies significant visual changes. No diplopia. No amaurosis. ENMT Denies changes in hearing, sore throat, mouth sores, difficulty or changes in swallowing ability, and/or sinus drainage. Hematologic/Lymphatic Denies easy bruising or bleeding. The patient denies any tender or palpable lymph nodes. Respiratory Denies dyspnea on exertion, chest pain, cough or hemoptysis. Denies orthopnea. Cardiovascular Denies anginal chest pain, palpitations or orthopnea. Gastrointestinal Denies worsening nausea- nausea better overall. He denies any vomiting, diarrhea, GI bleeding, or constipation. Denies change in bowel habits and/or stool color, no heartburn or early satiety. Genitourinary (M) Denies hematuria, dysuria, increased frequency, urgency, hesitancy or incontinence. Musculoskeletal Denies joint pain, swelling or redness. No decreased range of motion. Integumentary Denies chronic rashes, inflammation, ulcerations or skin changes. Neurologic Denies headache, blurred vision, and no areas of focal weakness or numbness. Normal gait. No sensory problems. Psychiatric Denies insomnia, depression, osiris or mood swings. Vital Signs: Performed on Jan 13, 2020 09:01 Height - 67.00 in Weight - 201.2 lbs (LOW) BSA - 2.03 sq.m BMI - 31.51 (HIGH) Temperature - 98.4 F Pulse - 60 /min Respiration - 24 /min BP - 104/64 mm(hg) O2 Sat - 98 % Pain - 0,2 - Ambulatory/capable of all self-care, unable to perform any work activities. Up and about more than 50% of waking hours. (ECOG) Physical Examination: Constitutional Alert, oriented, no acute distress. Skin pink, warm and dry. Head Normocephalic; atraumatic. Eyes Conjunctivae and sclerae are clear and without icterus. Pupils are reactive and equal. ENMT No oral exudates, ulcers, masses, thrush or mucositis. Oropharynx clear. Tongue normal. Neck Supple without masses or thyromegaly. No jugular venous distension. Respiratory Lungs are clear to auscultation without rhonchi or wheezing. Cardiovascular Regular rate and rhythm of heart without murmurs,clicks, gallops or rubs. Abdomen Non-tender, non-distended, no masses or ascites. Good bowel sounds noted in all quads. No guarding or rebound tenderness. No pulsatile masses. Back/Spine Non-tender to palpation. Extremities No visible deformities, no cyanosis, clubbing or edema. Musculoskeletal No tenderness or swelling, normal range of motion without obvious weakness. Integumentary No rashes or lesions. Neurologic No sensory or motor deficits, normal cerebellar function. Psychiatric Alert and oriented times three. Coherent speech. Verbalizes understanding of our discussions today. Laboratory:Test performed on Jan 13, 2020 08:07 Sodium 139 mmol/L Potassium 4.3 mmol/L Chloride 101 mmol/L CO2 31 mmol/L Anion Gap 11.3 BUN 6 mg/dL Creatinine 0.6 mg/dL Cr Clearance (Est) 165.9800 mL/min eGFR 135.6 mL/min Glucose 111 mg/dL Osmolality - Calculated 286 mOsm/kg Calcium 9.4 mg/dL Protein, Total 6.6 g/dL Albumin 3.8 g/dL Globulin 2.8 g/dL Bilirubin, Total 0.2 mg/dL ALT (SGPT) 17 U/L AST (SGOT) 14 U/L Alkaline Phosphatase 155 IU/L WBC 7.7 10 3/uL RBC 3.39 10 6/uL HGB 10.0 g/dL HCT 32.0 % MCV 94.4 fL MCH 29.5 pg MCHC 31.3 g/dL RDW 17.2 % Platelet Count 285 10 3/cmm MPV 9.3 fL Neutrophils 6.17 10 3/uL Lymphocytes 0.8 10 3/uL Monocytes 0.5 10 3/uL Eosinophils 0.2 10 3/uL Basophils 0.1 10 3/uL Neutrophil % 79.9 % Lymphocyte % 10.2 % Monocyte % 6.5 % Eosinophil % 2.2 % Basophils % 0.6 % NRBC % 0 % Test performed on Dec 16, 2019 11:15 Est Avg Glucose (eAG) 117 mg/dL Hemoglobin A1C % 5.7 % Test performed on Nov 18, 2019 10:44 CA 19-9 14.20 U/mL Test performed on Sep 07, 2019 15:50 CEA 19.9 ng/mL Impression: 1. Patient with adenocarcinoma involving the body of the pancreas, by clinical evaluation stage IV (T2, N2, M1), including extensive abdominal/retroperitoneal lymphadenopathy and metastatic involvement in the liver. 2. He also had EEG evidence of gastritis. 3. He is having significant anxiety, which is likely situational. His other medical illnesses include: 4. Type 2 diabetes. 5. Hyperlipidemia. Mr Swenson was offered palliative chemotherapy with gemcitabine/Abraxane. He began his first cycle on November 18, 2019. His day 8 treatment was held due to chemo induced neutropenia his ANC on day 8 was 1000. He was given 2 doses of Neupogen. Mr. Swenson was able to resume chemotherapy on December 02, 2019. His regimen had been changed to 1 of 15 with Neulasta support as needed. Mr Swenson had National Institutes of Health (NIH) Next Gene Sequencing which reported BRCA +. His treatment plan will be changed from Abraxane/gemcitabine to FOLFOX. He began his first cycle on 12/30/2019. He was admitted on January 04, 2020 and discharged on January 06, 2020 for tractable vomiting and nausea. He had been acute dehydration as well. He was given antiemetics and his nausea and vomiting were controlled. He was rehydrated and discharged. He states overall he is feeling a little better every day but still is pretty washed out overall. Plan: 1. Stop current treatment plan of FOLFOX Due to the severity of his nausea vomiting and dehydration and overall performance status decline.. 2. Will pursue a PARP inhibitor (off label for second line treatment) due to BRCA 2+ results from [facility] Next Gene Sequencing. Genetic BRCA analysis was drawn on 12/29/2019. 2. Labs from 01/13/2020 were reviewed in detail and discussed with Mr. Swenson and a copy was given to him. WBC 7.7, hemoglobin 10 platelets 285,000 ANC is 6200. Potassium 4.3 creatinine 0.6 LFTs are normal. His tumor markers were not repeated today. 4. He has had a trial of Marinol and the Reglan. He states he does not think they worked well for him. We refilled ondansetron 8 mg to employee pharmacy. He also has Compazine on hand. He has been instructed NONT to take the Reglan and Compazine together at any time. 5. We will plan to see him back in 2 weeks with CBC CMP. 6. Mr. Swenson was instructed to contact us in the interim should questions or problems arise. Signed By: Cayden Noe-, CNP Nakul Ventura MD <<Signature on File>>
[2020-01-27 10:30] LABS: Basophils # 0.1 10^3/uL (0.0-0.1); Basophils % 0.7 %; Eosinophils # 0.1 10^3/uL (0.0-0.8); Eosinophils % 1.9 %; Hematocrit 37.5 % (42.0-52.0); Hemoglobin 11.8 g/dL (11.7-16.6); Lymphocytes # 0.8 10^3/uL (0.8-4.8); Lymphocytes % 10.3 %; Mean Corpuscular HGB Conc 31.5 g/dL (30.0-36.0); Mean Corpuscular Hemoglobin 29.9 pg (28.0-34.0); Mean Corpuscular Volume 94.9 fL (80-94); Mean Platelet Volume 9.2 fL (7.4-10.4); Monocytes # 0.4 10^3/uL (0.2-0.9); Monocytes % 6.1 %; Neutrophils # 5.86 10^3/uL (1.8-7.7); Neutrophils % 80.7 %; Nucleated Red Blood Cells % 0 %; Platelet Count 196 10^3/cmm (130-400); Red Blood Count 3.95 10^6/uL (4.1-5.3); Red Cell Distribution Width 17.2 % (12.1-15.1); White Blood Count 7.3 10^3/uL (4.0-10.0)
[2020-01-27 11:03] LABS: Alanine Aminotransferase 32 U/L (0-41); Albumin Level 3.8 g/dL (3.5-5.2); Alkaline Phosphatase 101 IU/L (40-130); Anion Gap 13.2 (5-19); Aspartate Amino Transferase 13 U/L (0-40); Blood Urea Nitrogen 10 mg/dL (8-23); Calcium 9.4 mg/dL (8.5-10.5); Carbon Dioxide 28 mmol/L (22-29); Chloride 101 mmol/L (98-107); Globulin 2.7 g/dL (1.3-4.6); Glomerular Filtration Rate 135.6 mL/min (90-130); Glucose 122 mg/dL (65-115); Osmolality Calculated 286 mOsm/kg (285-295); Potassium 4.2 mmol/L (3.5-5.1); Sodium 138 mmol/L (136-145); Total Bilirubin 0.3 mg/dL (0.15-1.2); Total Protein 6.5 g/dL (6.6-8.7)
--- NOTE | 2020-01-27 22:11 | ONC FU_ITS ---
[facility] Patient Note Patient: Leonidas Swenson Unit #: [id number]: 1955 Dictated By: Cayden NoeDate of Visit: Jan 27, 2020 Onc MED Follow-Up/Prog Note Chief Complaint: Pancreatic cancer. History of Present Illness: Mr Swenson is a 64 year-old man had been seen initially with celiac axis, aortocaval, and retroperitoneal lymphadenopathy. He now has been confirmed to have pancreatic adenocarcinoma. He has type 2 diabetes and hyperlipidemia. Sometime within the past year or so he began having pain in his stomach and back. The pain gradually worsened, and he developed additional symptoms including anorexia, postprandial vomiting, and progressive weakness. He has had weight loss in the range of 40 pounds over a period of 3 months. 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 On 07/25/2019 he presented to the emergency room with abdominal pain. His CT abdomen/pelvis showed the pancreatic tail to be either absent or very atrophic. Pancreatic body was noted to be mildly hypodense, but the appearance was nonspecific. Prominent lymph nodes were noted, including a 2 x 1.4 cm peripancreatic lymph node as well as prominent retroperitoneal para-aortic lymph nodes. The lipase was normal. Further evaluation with cholangiopancreatography MRI on 08/06/2019 showed normal signal within the pancreas with mildly truncated distal pancreas, felt to be likely a normal variant. 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 The gallbladder showed no abnormal findings. He was seen in the ER again on 08/17/2019. CT abdomen/pelvis showed similar findings. Abdominal MRI on 08/31/2019 reported abnormal signal within the body and distal pancreas, but without evidence of enhancing mass. Again noted was aortocaval and periaortic adenopathy with the largest aortocaval node measuring 1.7 cm and a cluster of enlarged periaortic lymph nodes measuring 2.0 cm. An additional lymph node or other celiac axis measure 2.2 cm. MRI of the lumbar spine on 09/02/2019 showed degenerative changes at multiple levels, but no lytic bone disease or other evidence of malignancy. Dr Ventura had seen him initially on 09/07/2019. He then had further evaluation with PET/CT on 09/12/2019. It showed a 3.2 x 6.8 cm region of abnormal activity within the mid pancreas with SUV 7.0, consistent with primary pancreatic carcinoma. There was extensive FDG positive upper abdominal lymphadenopathy and there was an enlarged celiac lymph node measuring 2.9 cm with SUV 8.4, consistent with local metastatic disease. There is additional bilateral FDG avid lymph nodes, scattered FDG avid mesenteric lymph nodes, and FDG avid hepatic lesions, all consistent with metastatic disease. With those findings, he was referred to Dr. Deon Calderon at [facility]. He had further evaluation with EGD and upper abdominal EUS on 10/08/2019. The EGD did show some evidence of gastritis with negative gastric biopsy for helicobacter pylori. The upper EUS showed a 32.4 x 35.3 mm hypoechoic irregular mass in the body of the pancreas and a 24.8 x 25.5 mm hypoechoic ovoid celiac lymph node, both of which were evaluated with FNA biopsy. Pathology was positive for adenocarcinoma at both sites. Dr Ventura had seen him for a follow-up visit on 10/14/2019. At that point he indicated that he was interested in undergoing a trial of palliative chemotherapy, though with the understanding that the likelihood of benefit would be relatively low and that there would be potential for treatment related toxicity. He has since undergone placement of Port-A-Cath venous access device. He began his first cycle of Abraxane/gemcitabine on November 18, 2019. His day 8 treatment was held due to chemo induced neutropenia his ANC on day 8 was 1000. He was given 2 doses of Neupogen and his blood counts recovered adequately to get treatment. Mr. Swenson is here today for follow-up. His last treatment of Abraxane/gemcitabine was on December 16, 2019. He tolerated it well. on December 30, 2019, he began a new treatment plan due to results of his [employer] Next gene sequencing indicating that he is BRCA 2 positive. The new treatment plan was FOLFOX. He began his first cycle on 12/30/2019. He did have supportive care with hydration and antiemetics on 12/31/2019 & 01/01/2020. He was admitted to [facility] on January 06, 2020 for intractable nausea and vomiting. He was discharged on January 06, 2020 with the nausea vomiting resolved. He also had acute dehydration at that time but that was corrected on his discharge. He states after the first treatment of FOLFOX he was really sick. His treatment has now been stopped due to the significant side effects he experienced. We are pursuing PARP inhibitor therapy for his BRCA mutated pancreatic cancer. Mr Swenson is here today for follow up after stopping his treatment. He is accompanied by his mother today. He states overall he is feeling much better. He states he is eating better. His energy is better although it still limited. He denies any fever or chills. He has had no further nausea. He denies diarrhea or constipation. He states overall he feels better and thinks he is recovering from the chemotherapy. He denies any new pain. He denies any headaches or vision changes. His ECOG is 2. Past Medical History: Hyperlipidemia Type II diabetes Past Surgical History: Biopsy of pancreas Lasik eye surgery bilaterally Right inguinal hernia repair Vasectomy Allergies: No Known Allergies. Medications: CeleXA 1 Tablet (of 20 mg) Oral daily Cinnamon 1 Capsule Oral daily Eszopiclone 1 Tablet (of 2 mg) Oral daily Fish Oil 1 Capsule Oral daily glipiZIDE XL 1 Tablet (of 5 mg) Tablet SR 24 HR Oral daily Januvia 1 Tablet (of 100 mg) Oral daily LORazepam 2 Tablet (of 1 mg) Oral at bedtime Morphine Sulfate 1 Tablet (of 30 mg) Oral q 4 hours PRN Multivitamin Adult 1 Tablet Oral daily Pantoprazole Sodium 1 Tablet (of 40 mg) Tablet, enteric coated Oral daily Tamsulosin HCl 1 Capsule (of 0.4 mg) Oral daily traMADol HCl 1 Tablet (of 50 mg) Oral q 6 hours PRN Family History: Mr. Swenson's mother is alive. Mr. Swenson's father at age 52: bone cancer. Mother is still living at age 82. Father at age 52 with cancer involving his jawbone. He has six siblings, all apparently in good health. Social History: Mr. 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 Mr. Swenson has never smoked. He has no history of drinking. Mr. Swenson reports the following support systems: lives alone, lives in own house, supportive family/friends willing to assist with needs, and transportation problems exist and will require assistance. His diet consists of regular meals. He indicates his activity level as: regular exercise. 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 He has not been able to work due to this illness. He is a nonsmoker. He does not drink alcohol. Review Of Symptoms: Constitutional Denies fevers, chills, night sweats, excessive fatigue. Appetite better and he states he feels better overall. Allergic/Immunologic No reactions. Eyes Denies significant visual changes. No diplopia. No amaurosis. ENMT Denies changes in hearing, sore throat, mouth sores, difficulty or changes in swallowing ability, and/or sinus drainage. Hematologic/Lymphatic Denies easy bruising or bleeding. The patient denies any tender or palpable lymph nodes. Respiratory Denies dyspnea on exertion, chest pain, cough or hemoptysis. Denies orthopnea. Cardiovascular Denies anginal chest pain, palpitations or orthopnea. Gastrointestinal Denies worsening nausea- nausea gone . He denies any vomiting, diarrhea, GI bleeding, or constipation. Denies change in bowel habits and/or stool color, no heartburn or early satiety. Genitourinary (M) Denies hematuria, dysuria, increased frequency, urgency, hesitancy or incontinence. Musculoskeletal Denies joint pain, swelling or redness. No decreased range of motion. Integumentary Denies chronic rashes, inflammation, ulcerations or skin changes. Neurologic Denies headache, blurred vision, and no areas of focal weakness or numbness. Normal gait. No sensory problems. Psychiatric Denies insomnia, depression, osiris or mood swings. Vital Signs: Performed on Jan 27, 2020 11:33 Height - 67.00 in Weight - 201.0 lbs (LOW) BSA - 2.03 sq.m BMI - 31.48 (HIGH) Temperature - 98.6 F Pulse - 84 /min Respiration - 22 /min BP - 117/74 mm(hg) O2 Sat - 97 % Pain - 0,2 - Ambulatory/capable of all self-care, unable to perform any work activities. Up and about more than 50% of waking hours. (ECOG) Physical Examination: Constitutional Alert, oriented, no acute distress. Skin pink, warm and dry. Head Normocephalic; atraumatic. Eyes Conjunctivae and sclerae are clear and without icterus. Pupils are reactive and equal. Neck Supple without masses or thyromegaly. No jugular venous distension. Respiratory Lungs are clear to auscultation without rhonchi or wheezing. Cardiovascular Regular rate and rhythm of heart without murmurs,clicks, gallops or rubs. Abdomen Non-tender, non-distended, no masses or ascites. Good bowel sounds noted in all quads. No guarding or rebound tenderness. No pulsatile masses. Back/Spine Non-tender to palpation. Extremities No visible deformities, no cyanosis, clubbing or edema. Musculoskeletal No tenderness or swelling, normal range of motion without obvious weakness. Integumentary No rashes or lesions. Neurologic No sensory or motor deficits, normal cerebellar function. Psychiatric Alert and oriented times three. Coherent speech. Verbalizes understanding of our discussions today. Laboratory:Test performed on Jan 27, 2020 10:03 Sodium 138 mmol/L Potassium 4.2 mmol/L Chloride 101 mmol/L CO2 28 mmol/L Anion Gap 13.2 BUN 10 mg/dL Creatinine 0.6 mg/dL Cr Clearance (Est) 165.9800 mL/min eGFR 135.6 mL/min Glucose 122 mg/dL Osmolality - Calculated 286 mOsm/kg Calcium 9.4 mg/dL Protein, Total 6.5 g/dL Albumin 3.8 g/dL Globulin 2.7 g/dL Bilirubin, Total 0.3 mg/dL ALT (SGPT) 32 U/L AST (SGOT) 13 U/L Alkaline Phosphatase 101 IU/L WBC 7.3 10 3/uL RBC 3.95 10 6/uL HGB 11.8 g/dL HCT 37.5 % MCV 94.9 fL MCH 29.9 pg MCHC 31.5 g/dL RDW 17.2 % Platelet Count 196 10 3/cmm MPV 9.2 fL Neutrophils 5.86 10 3/uL Lymphocytes 0.8 10 3/uL Monocytes 0.4 10 3/uL Eosinophils 0.1 10 3/uL Basophils 0.1 10 3/uL Neutrophil % 80.7 % Lymphocyte % 10.3 % Monocyte % 6.1 % Eosinophil % 1.9 % Basophils % 0.7 % NRBC % 0 % Test performed on Dec 16, 2019 11:15 Est Avg Glucose (eAG) 117 mg/dL Hemoglobin A1C % 5.7 % Test performed on Nov 18, 2019 10:44 CA 19-9 14.20 U/mL Test performed on Sep 07, 2019 15:50 CEA 19.9 ng/mL Impression: 1. Patient with adenocarcinoma involving the body of the pancreas, by clinical evaluation stage IV (T2, N2, M1), including extensive abdominal/retroperitoneal lymphadenopathy and metastatic involvement in the liver. 2. He also had EEG evidence of gastritis. 3. He is having significant anxiety, which is likely situational. His other medical illnesses include: 4. Type 2 diabetes. 5. Hyperlipidemia. Mr Swenson was offered palliative chemotherapy with gemcitabine/Abraxane. He began his first cycle on November 18, 2019. His day 8 treatment was held due to chemo induced neutropenia his ANC on day 8 was 1000. He was given 2 doses of Neupogen. Mr. Swenson was able to resume chemotherapy on December 02, 2019. His regimen had been changed to 1 of 15 with Neulasta support as needed. Mr Swenson had [employer] Gene Sequencing which reported BRCA +. His treatment plan will be changed from Abraxane/gemcitabine to FOLFOX. He began his first cycle on 12/30/2019. He was admitted on January 04, 2020 and discharged on January 06, 2020 for tractable vomiting and nausea. He had been acute dehydration as well. He was given antiemetics and his nausea and vomiting were controlled. He was rehydrated and discharged. He has continued to improve in his performance status . The treatment plan of the FOLFOX has been stopped due to the severity of his side effects. We are now pursuing second line treatment with olaparib-PARP inhibitor. Plan: 1. We have stopped the treatment plan of FOLFOX Due to the severity of his nausea vomiting and dehydration and overall performance status decline.. 2. We are pursuing a PARP inhibitor-olaparib 300 mg PO twice daily (off label for second line treatment) due to BRCA 2+ results from [employer] Gene Sequencing. Genetic BRCA analysis was drawn on 12/29/2019. 3. Labs from 01/27/2020 were reviewed in detail and discussed with Mr. Swenson and a copy was given to him. WBC 7.3, hemoglobin improved to 11.8, platelets 196,000 ANC is 5860. Creatinine 0.6 LFTs are normal potassium 4.2 random glucose was 122. His weight is stable at 201. 4. We have discussed the PARP inhibitor???olaparib and how to take it once it is approved. He will take 300 mg twice daily. It appears that it comes 150 mg tablets/capsules. He has been advised to avoid grapefruit products with this medication. A copy of the Up to Date drug information was given to him. Once he starts the medication, he will have weekly interim counts. He is aware that we are pursuing this and will double check on status today hopefully will have more information by early next week. 5. We will plan establish follow-up palns once we see the outcome of request for the olaparib. In the meantime he plans to take a trip to [place] to see some family but states he will be social distancing and wearing his mask in continuing diligent hygiene. 6. Mr. Swenson was instructed to contact us in the interim should questions or problems arise. Signed By: Cayden Noe-, CNP Nakul Ventura MD <<Signature on File>>
== END 2020-02-01 23:59 | disposition home or self-care (01) ==
LOC: ONCMED 05:42
PROVIDERS: PCP Family Medicine; Visit Provider Nurse Practitioner
DX: C25.1 Malignant neoplasm of body of pancreas (principal); C78.7 Secondary malignant neoplasm of liver and intrahepatic bile duct; D70.1 Agranulocytosis secondary to cancer chemotherapy; T45.1X5A Adverse effect of antineoplastic and immunosuppressive drugs, initial encounter; R59.0 Localized enlarged lymph nodes; K29.70 Gastritis, unspecified, without bleeding; F41.9 Anxiety disorder, unspecified; E11.9 Type 2 diabetes mellitus without complications; E78.5 Hyperlipidemia, unspecified; Z79.899 Other long term (current) drug therapy; Z92.21 Personal history of antineoplastic chemotherapy
CPT/HCPCS: 36591; 80053; 85025; 99214

== ENCOUNTER 2020-03-01 05:25 | Outpatient (RCR) | payer MEDICAID, SELFPAY ==
[2020-02-22 11:50] LABS: Basophils % 1.2 %; Eosinophils # 0.2 10^3/uL (0.0-0.8); Hematocrit 31.7 % (42.0-52.0); Hemoglobin 10.1 g/dL (11.7-16.6); Lymphocytes # 0.5 10^3/uL (0.8-4.8); Lymphocytes % 16.1 %; Mean Corpuscular HGB Conc 31.9 g/dL (30.0-36.0); Mean Corpuscular Hemoglobin 29.2 pg (28.0-34.0); Mean Corpuscular Volume 91.6 fL (80-94); Mean Platelet Volume 9.1 fL (7.4-10.4); Monocytes # 0.2 10^3/uL (0.2-0.9); Monocytes % 6.3 %; Neutrophils # 2.35 10^3/uL (1.8-7.7); Neutrophils % 70.1 %; Nucleated Red Blood Cells % 0 %; Platelet Count 197 10^3/cmm (130-400); Red Blood Count 3.46 10^6/uL (4.1-5.3); Red Cell Distribution Width 14.6 % (12.1-15.1); White Blood Count 3.4 10^3/uL (4.0-10.0)
[2020-02-22 12:10] LABS: Alanine Aminotransferase 16 U/L (0-41); Albumin Level 3.7 g/dL (3.5-5.2); Alkaline Phosphatase 103 IU/L (40-130); Anion Gap 12.2 (5-19); Aspartate Amino Transferase 16 U/L (0-40); Blood Urea Nitrogen 5 mg/dL (8-23); Calcium 9.2 mg/dL (8.5-10.5); Carbon Dioxide 28 mmol/L (22-29); Chloride 100 mmol/L (98-107); Globulin 2.7 g/dL (1.3-4.6); Glomerular Filtration Rate 113.5 mL/min (90-130); Glucose 107 mg/dL (65-115); Osmolality Calculated 280 mOsm/kg (285-295); Potassium 4.2 mmol/L (3.5-5.1); Sodium 136 mmol/L (136-145); Total Bilirubin 0.3 mg/dL (0.15-1.2); Total Protein 6.4 g/dL (6.6-8.7)
--- NOTE | 2020-02-23 22:30 | ONC FU_ITS ---
[facility] Patient Note Patient: Leonidas Swenson Unit #: [id number]: 1955 Dictated By: Cayden NoeDate of Visit: Feb 22, 2020 Onc MED Follow-Up/Prog Note Chief Complaint: Pancreatic cancer. History of Present Illness: Mr Swenson is a 64 year-old man had been seen initially with celiac axis, aortocaval, and retroperitoneal lymphadenopathy. He now has been confirmed to have pancreatic adenocarcinoma. He has type 2 diabetes and hyperlipidemia. Sometime within the past year or so he began having pain in his stomach and back. The pain gradually worsened, and he developed additional symptoms including anorexia, postprandial vomiting, and progressive weakness. He has had weight loss in the range of 40 pounds over a period of 3 months. 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 On 07/25/2019 he presented to the emergency room with abdominal pain. His CT abdomen/pelvis showed the pancreatic tail to be either absent or very atrophic. Pancreatic body was noted to be mildly hypodense, but the appearance was nonspecific. Prominent lymph nodes were noted, including a 2 x 1.4 cm peripancreatic lymph node as well as prominent retroperitoneal para-aortic lymph nodes. The lipase was normal. Further evaluation with cholangiopancreatography MRI on 08/06/2019 showed normal signal within the pancreas with mildly truncated distal pancreas, felt to be likely a normal variant. 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 The gallbladder showed no abnormal findings. He was seen in the ER again on 08/17/2019. CT abdomen/pelvis showed similar findings. Abdominal MRI on 08/31/2019 reported abnormal signal within the body and distal pancreas, but without evidence of enhancing mass. Again noted was aortocaval and periaortic adenopathy with the largest aortocaval node measuring 1.7 cm and a cluster of enlarged periaortic lymph nodes measuring 2.0 cm. An additional lymph node or other celiac axis measure 2.2 cm. MRI of the lumbar spine on 09/02/2019 showed degenerative changes at multiple levels, but no lytic bone disease or other evidence of malignancy. Dr Ventura had seen him initially on 09/07/2019. He then had further evaluation with PET/CT on 09/12/2019. It showed a 3.2 x 6.8 cm region of abnormal activity within the mid pancreas with SUV 7.0, consistent with primary pancreatic carcinoma. There was extensive FDG positive upper abdominal lymphadenopathy and there was an enlarged celiac lymph node measuring 2.9 cm with SUV 8.4, consistent with local metastatic disease. There is additional bilateral FDG avid lymph nodes, scattered FDG avid mesenteric lymph nodes, and FDG avid hepatic lesions, all consistent with metastatic disease. With those findings, he was referred to Dr. Deon Calderon at [facility]. He had further evaluation with EGD and upper abdominal EUS on 10/08/2019. The EGD did show some evidence of gastritis with negative gastric biopsy for helicobacter pylori. The upper EUS showed a 32.4 x 35.3 mm hypoechoic irregular mass in the body of the pancreas and a 24.8 x 25.5 mm hypoechoic ovoid celiac lymph node, both of which were evaluated with FNA biopsy. Pathology was positive for adenocarcinoma at both sites. Dr Ventura had seen him for a follow-up visit on 10/14/2019. At that point he indicated that he was interested in undergoing a trial of palliative chemotherapy, though with the understanding that the likelihood of benefit would be relatively low and that there would be potential for treatment related toxicity. He has since undergone placement of Port-A-Cath venous access device. He began his first cycle of Abraxane/gemcitabine on November 18, 2019. His day 8 treatment was held due to chemo induced neutropenia his ANC on day 8 was 1000. He was given 2 doses of Neupogen and his blood counts recovered adequately to get treatment. Mr. Swenson is here today for follow-up. His last treatment of Abraxane/gemcitabine was on December 16, 2019. He tolerated it well. on December 30, 2019, he began a new treatment plan due to results of his [employer] gene sequencing indicating that he is BRCA 2 positive. The new treatment plan was FOLFOX. He began his first cycle on 12/30/2019. He did have supportive care with hydration and antiemetics on 12/31/2019 & 01/01/2020. He was admitted to [facility] on January 06, 2020 for intractable nausea and vomiting. He was discharged on January 06, 2020 with the nausea vomiting resolved. He also had acute dehydration at that time but that was corrected on his discharge. He states after the first treatment of FOLFOX he was really sick. His treatment has now been stopped due to the significant side effects he experienced. He began olaparib (PARP inhibitor therapy) for his BRCA mutated pancreatic cancer on 02/12/2020. Mr Swenson is here today for follow up. He states he is eating better. His energy is better although it is still limited. He denies any fever or chills. He has had no further nausea. He denies diarrhea or constipation. He states overall he feels better. He denies any headaches or vision changes. He is requesting to do some limited driving. He states he drove to [place] although his parents were with him and tolerated this well. He denies any seizures. He denies any generalized weakness. He denies any syncope. He has not had any restrictions on his driving at this point. 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 He states that when he does take his pain medication he is not having sedation with that and does not feel that impairs his ability to drive at this point. His ECOG is 1. Past Medical History: Hyperlipidemia Type II diabetes Past Surgical History: Biopsy of pancreas Lasik eye surgery bilaterally Right inguinal hernia repair Vasectomy Allergies: No Known Allergies. Medications: CeleXA 1 Tablet (of 20 mg) Oral daily Fish Oil 1 Capsule Oral daily glipiZIDE XL 1 Tablet (of 5 mg) Tablet SR 24 HR Oral daily Januvia 1 Tablet (of 100 mg) Oral daily LORazepam 2 Tablet (of 1 mg) Oral at bedtime Morphine Sulfate 1 Tablet (of 30 mg) Oral q 4 hours PRN Multivitamin Adult 1 Tablet Oral daily Pantoprazole Sodium 1 Tablet (of 40 mg) Tablet, enteric coated Oral daily Tamsulosin HCl 1 Capsule (of 0.4 mg) Oral daily traMADol HCl 1 Tablet (of 50 mg) Oral q 6 hours PRN Family History: Mr. Swenson's mother is alive. Mr. Swenson's father at age 52: bone cancer. Mother is still living at age 82. Father at age 52 with cancer involving his jawbone. He has six siblings, all apparently in good health. Social History: Mr. 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 Mr. Swenson has never smoked. He has no history of drinking. Mr. Swenson reports the following support systems: lives alone, lives in own house, supportive family/friends willing to assist with needs, and transportation problems exist and will require assistance. His diet consists of regular meals. He indicates his activity level as: regular exercise. 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 He has not been able to work due to this illness. He is a nonsmoker. He does not drink alcohol. Review Of Symptoms: Constitutional Denies fevers, chills, night sweats, excessive fatigue. Appetite good-no taste changes and he states he feels good overall. Allergic/Immunologic No reactions. Eyes Denies significant visual changes. No diplopia. No amaurosis. ENMT Denies changes in hearing, sore throat, mouth sores, difficulty or changes in swallowing ability, and/or sinus drainage. Hematologic/Lymphatic Denies easy bruising or bleeding. The patient denies any tender or palpable lymph nodes. Respiratory Denies dyspnea on exertion, chest pain, cough or hemoptysis. Denies orthopnea. Cardiovascular Denies anginal chest pain, palpitations or orthopnea. Gastrointestinal Denies nausea- nausea. He denies any vomiting, diarrhea, GI bleeding, or constipation. Denies change in bowel habits and/or stool color, no heartburn or early satiety. Genitourinary (M) Denies hematuria, dysuria, increased frequency, urgency, hesitancy or incontinence. Musculoskeletal Denies joint pain, swelling or redness. No decreased range of motion. Integumentary Denies chronic rashes, inflammation, ulcerations or skin changes. Neurologic Denies headache, blurred vision, and no areas of focal weakness or numbness. Normal gait. No sensory problems. Psychiatric Denies insomnia, depression, osiris or mood swings. Vital Signs: Performed on Feb 22, 2020 12:59 Height - 77.5 in (HIGH) Weight - 217.4 lbs (HIGH) BSA - 2.33 sq.m BMI - 25.45 Temperature - 98.1 F (LOW) Pulse - 68 /min Respiration - 18 /min BP - 142/74 mm(hg) (HIGH) O2 Sat - 97 % Pain - 3,1 - No physically strenuous activity, but ambulatory and able to carry out light or sedentary work (e.g. office work, light house work). (ECOG) Physical Examination: Constitutional Alert, oriented, no acute distress. Skin pink, warm and dry. Head Normocephalic; atraumatic. Eyes Conjunctivae and sclerae are clear and without icterus. Pupils are reactive and equal. ENMT No oral exudates, ulcers, masses, thrush or mucositis. Oropharynx clear. Tongue normal. Neck Supple without masses or thyromegaly. No jugular venous distension. Respiratory Lungs are clear to auscultation without rhonchi or wheezing. Cardiovascular Regular rate and rhythm of heart without murmurs,clicks, gallops or rubs. Abdomen Non-tender, non-distended, no masses or ascites. Good bowel sounds noted in all quads. No guarding or rebound tenderness. No pulsatile masses. Back/Spine Non-tender to palpation. Extremities No visible deformities, no cyanosis, clubbing or edema. Musculoskeletal No tenderness or swelling, normal range of motion without obvious weakness. Integumentary No rashes or lesions. Neurologic No sensory or motor deficits, normal cerebellar function. Psychiatric Alert and oriented times three. Coherent speech. Verbalizes understanding of our discussions today. Laboratory:Test performed on Feb 22, 2020 11:36 Sodium 136 mmol/L Potassium 4.2 mmol/L Chloride 100 mmol/L CO2 28 mmol/L Anion Gap 12.2 BUN 5 mg/dL Creatinine 0.7 mg/dL Cr Clearance (Est) 148.70 mL/min eGFR 113.5 mL/min Glucose 107 mg/dL Osmolality - Calculated 280 mOsm/kg Calcium 9.2 mg/dL Protein, Total 6.4 g/dL Albumin 3.7 g/dL Globulin 2.7 g/dL Bilirubin, Total 0.3 mg/dL ALT (SGPT) 16 U/L AST (SGOT) 16 U/L Alkaline Phosphatase 103 IU/L WBC 3.4 10 3/uL RBC 3.46 10 6/uL HGB 10.1 g/dL HCT 31.7 % MCV 91.6 fL MCH 29.2 pg MCHC 31.9 g/dL RDW 14.6 % Platelet Count 197 10 3/cmm MPV 9.1 fL Neutrophils 2.35 10 3/uL Lymphocytes 0.5 10 3/uL Monocytes 0.2 10 3/uL Eosinophils 0.2 10 3/uL Basophils 0.0 10 3/uL Neutrophil % 70.1 % Lymphocyte % 16.1 % Monocyte % 6.3 % Eosinophil % 6.0 % Basophils % 1.2 % NRBC % 0 % Test performed on Dec 16, 2019 11:15 Est Avg Glucose (eAG) 117 mg/dL Hemoglobin A1C % 5.7 % Test performed on Nov 18, 2019 10:44 CA 19-9 14.20 U/mL Test performed on Sep 07, 2019 15:50 CEA 19.9 ng/mL Impression: 1. Patient with adenocarcinoma involving the body of the pancreas, by clinical evaluation stage IV (T2, N2, M1), including extensive abdominal/retroperitoneal lymphadenopathy and metastatic involvement in the liver. 2. He also had EEG evidence of gastritis. 3. He is having significant anxiety, which is likely situational. His other medical illnesses include: 4. Type 2 diabetes. 5. Hyperlipidemia. Mr Swenson was offered palliative chemotherapy with gemcitabine/Abraxane. He began his first cycle on November 18, 2019. His day 8 treatment was held due to chemo induced neutropenia his ANC on day 8 was 1000. He was given 2 doses of Neupogen. Mr. Swenson was able to resume chemotherapy on December 02, 2019. His regimen had been changed to 1 of 15 with Neulasta support as needed. Mr Swenson had [employer] Sequencing which reported BRCA +. His treatment plan will be changed from Abraxane/gemcitabine to FOLFOX. He began his first cycle on 12/30/2019. He was admitted on January 04, 2020 and discharged on January 06, 2020 for tractable vomiting and nausea. He had been acute dehydration as well. He was given antiemetics and his nausea and vomiting were controlled. He was rehydrated and discharged. He has continued to improve in his performance status . The treatment plan of the FOLFOX has been stopped due to the severity of his side effects. We have started second line treatment with olaparib-PARP inhibitor due to BRCA 2+ results from his [employer] report. He began the olaparib 300 mg twice daily on 02/12/2020. Plan: 1. Proceed with olaparib 300 mg PO twice daily (off label for second line treatment) due to BRCA 2+ results from [employer] Gene Sequencing. Genetic BRCA analysis was drawn on 12/29/2019. 2. Labs from 02/22/2020 were reviewed in detail and discussed with Mr. Swenson and a copy was given to him. WBC 3.4, hemoglobin 10.1, platelets 1 97,000, ANC is 2350. Potassium 4.2 random glucose 107 creatinine 0.7 LFTs are normal tumor markers were pending at time of visit. His weight has improved to 217. He states his appetite has been better since stopping the chemotherapy. 3. He has been advised to avoid grapefruit products with the olaparib. 4. He plans to do some limited driving around town to see how he tolerates this. He has been driving with his family in the car with him and has had no problems. 5. We will plan to recheck a CBC CMP in 1 week given that his white count has dropped from 7.3 to 3.4 with addition of a olaparib. We will plan to see him back in 2 weeks with CBC CMP CEA and CA 19-9. He will have follow-up visit at that time as well. 6. Mr. Swenson was instructed to contact us in the interim should questions or problems arise. Signed By: Cayden Noe-, AOCNP Nakul Ventura MD <<Signature on File>>
[2020-03-02] MEDS: alteplase 1 mg/mL SDV 2 mL 2 MG IV (09:15)
[2020-03-02 10:35] LABS: Basophils % 1.1 %; Eosinophils # 0.2 10^3/uL (0.0-0.8); Eosinophils % 6.4 %; Hematocrit 32.3 % (42.0-52.0); Hemoglobin 10.3 g/dL (11.7-16.6); Lymphocytes # 0.4 10^3/uL (0.8-4.8); Lymphocytes % 14.6 %; Mean Corpuscular HGB Conc 31.9 g/dL (30.0-36.0); Mean Corpuscular Hemoglobin 29.5 pg (28.0-34.0); Mean Corpuscular Volume 92.6 fL (80-94); Mean Platelet Volume 9.6 fL (7.4-10.4); Monocytes # 0.2 10^3/uL (0.2-0.9); Neutrophils # 2.02 10^3/uL (1.8-7.7); Neutrophils % 71.9 %; Nucleated Red Blood Cells % 0 %; Platelet Count 160 10^3/cmm (130-400); Red Blood Count 3.49 10^6/uL (4.1-5.3); Red Cell Distribution Width 14.9 % (12.1-15.1); White Blood Count 2.8 10^3/uL (4.0-10.0)
[2020-03-02 10:54] LABS: Alanine Aminotransferase 9 U/L (0-41); Albumin Level 3.6 g/dL (3.5-5.2); Alkaline Phosphatase 98 IU/L (40-130); Aspartate Amino Transferase 12 U/L (0-40); Blood Urea Nitrogen 9 mg/dL (8-23); Calcium 9.2 mg/dL (8.5-10.5); Carbon Dioxide 29 mmol/L (22-29); Chloride 101 mmol/L (98-107); Globulin 2.6 g/dL (1.3-4.6); Glomerular Filtration Rate 113.5 mL/min (90-130); Glucose 120 mg/dL (65-115); Osmolality Calculated 286 mOsm/kg (285-295); Sodium 138 mmol/L (136-145); Total Bilirubin 0.4 mg/dL (0.15-1.2); Total Protein 6.2 g/dL (6.6-8.7)
== END 2020-03-03 23:59 | disposition home or self-care (01) ==
LOC: ONCMED 05:25
PROVIDERS: Internal Medicine Medical Oncology; PCP Family Medicine; Visit Provider Nurse Practitioner
DX: C25.1 Malignant neoplasm of body of pancreas (principal); C78.7 Secondary malignant neoplasm of liver and intrahepatic bile duct; F41.9 Anxiety disorder, unspecified; K29.70 Gastritis, unspecified, without bleeding; Z51.81 Encounter for therapeutic drug level monitoring; Z79.899 Other long term (current) drug therapy; E78.5 Hyperlipidemia, unspecified; E11.9 Type 2 diabetes mellitus without complications; Z79.84 Long term (current) use of oral hypoglycemic drugs
CPT/HCPCS: 36591; 36593; 80053; 85025; 96374; 99214; J2997

== ENCOUNTER 2020-03-29 05:39 | Outpatient (RCR) | payer MEDICAID, SELFPAY ==
[2020-03-10 08:31] LABS: Basophils # 0.1 10^3/uL (0.0-0.1); Basophils % 1.3 %; Eosinophils # 0.2 10^3/uL (0.0-0.8); Eosinophils % 6.1 %; Hematocrit 33.4 % (42.0-52.0); Hemoglobin 10.8 g/dL (11.7-16.6); Lymphocytes # 0.6 10^3/uL (0.8-4.8); Lymphocytes % 16.6 %; Mean Corpuscular HGB Conc 32.3 g/dL (30.0-36.0); Mean Corpuscular Hemoglobin 30.2 pg (28.0-34.0); Mean Corpuscular Volume 93.3 fL (80-94); Mean Platelet Volume 9.4 fL (7.4-10.4); Monocytes # 0.3 10^3/uL (0.2-0.9); Neutrophils # 2.53 10^3/uL (1.8-7.7); Neutrophils % 67.7 %; Nucleated Red Blood Cells % 0 %; Platelet Count 171 10^3/cmm (130-400); Red Blood Count 3.58 10^6/uL (4.1-5.3); Red Cell Distribution Width 14.8 % (12.1-15.1); White Blood Count 3.7 10^3/uL (4.0-10.0)
[2020-03-10 09:13] LABS: Carcinoembryonic Antigen 94.1 ng/mL (0.0-4.7)
[2020-03-10 09:24] LABS: Alanine Aminotransferase 10 U/L (0-41); Albumin Level 3.8 g/dL (3.5-5.2); Alkaline Phosphatase 116 IU/L (40-130); Anion Gap 13.2 (5-19); Aspartate Amino Transferase 13 U/L (0-40); Blood Urea Nitrogen 12 mg/dL (8-23); Calcium 9.5 mg/dL (8.5-10.5); Carbon Dioxide 26 mmol/L (22-29); Chloride 99 mmol/L (98-107); Globulin 3.1 g/dL (1.3-4.6); Glucose 127 mg/dL (65-115); Osmolality Calculated 279 mOsm/kg (285-295); Potassium 4.2 mmol/L (3.5-5.1); Sodium 134 mmol/L (136-145); Total Bilirubin 0.3 mg/dL (0.15-1.2); Total Protein 6.9 g/dL (6.6-8.7)
[2020-03-10 09:52] LABS: Cancer Antigen 19 9 14.19 U/mL (0-35)
--- NOTE | 2020-03-13 11:39 | ONC FU_ITS ---
Dr. Ventura Patient Follow-Up Note Patient: Leonidas Swenson Unit #: [id number]: 1955 Dicatated By: Nakul Ventura M.D.Date of Visit:Mar 10, 2020 Onc Med Follow-up/Prog Note Chief Complaint: Pancreatic cancer. History of Present Illness: This is a 64 year-old man had been seen initially with celiac axis, aortocaval, and retroperitoneal lymphadenopathy. He ultimately was confirmed to have metastatic pancreatic adenocarcinoma, and on next generation sequencing his tumor was found to harbor a BRCA2 mutation. On 07/25/2019 he presented to the emergency room with abdominal pain. He had experience significant weight loss. His CT abdomen/pelvis showed the pancreatic tail to be either absent or very atrophic. Pancreatic body was noted to be mildly hypodense, but the appearance was nonspecific. Prominent lymph nodes were noted, including a 2 x 1.4 cm peripancreatic lymph node as well as prominent retroperitoneal para-aortic lymph nodes. The lipase was normal. Further evaluation with cholangiopancreatography MRI on 08/06/2019 showed normal signal within the pancreas with mildly truncated distal pancreas, felt to be likely a normal variant. 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 The gallbladder showed no abnormal findings. He was seen in the ER again on 08/17/2019. CT abdomen/pelvis showed similar findings. Abdominal MRI on 08/31/2019 reported abnormal signal within the body and distal pancreas, but without evidence of enhancing mass. Again noted was aortocaval and periaortic adenopathy with the largest aortocaval node measuring 1.7 cm and a cluster of enlarged periaortic lymph nodes measuring 2.0 cm. An additional lymph node or other celiac axis measure 2.2 cm. MRI of the lumbar spine on 09/02/2019 showed degenerative changes at multiple levels, but no lytic bone disease or other evidence of malignancy. I had seen him initially on 09/07/2019. He then had further evaluation with PET/CT on 09/12/2019. It showed a 3.2 x 6.8 cm region of abnormal activity within the mid pancreas with SUV 7.0, consistent with primary pancreatic carcinoma. There was extensive FDG positive upper abdominal lymphadenopathy and there was an enlarged celiac lymph node measuring 2.9 cm with SUV 8.4, consistent with local metastatic disease. There is additional bilateral FDG avid lymph nodes, scattered FDG avid mesenteric lymph nodes, and FDG avid hepatic lesions, all consistent with metastatic disease. With those findings, he was referred to Dr. Deon Calderon at [facility]. He had further evaluation with EGD and upper abdominal EUS on 10/08/2019. The EGD did show some evidence of gastritis with negative gastric biopsy for helicobacter pylori. The upper EUS showed a 32.4 x 35.3 mm hypoechoic irregular mass in the body of the pancreas and a 24.8 x 25.5 mm hypoechoic ovoid celiac lymph node, both of which were evaluated with FNA biopsy. Pathology was positive for adenocarcinoma at both sites. On subsequent evaluation with next generation sequencing, his tumor was found to harbor a BRCA2 mutation. In October he began a trial of chemotherapy with gemcitabine/Abraxane. He tolerated it poorly, and it was stopped after his cycle 2-day 1 treatment, as he was showing no evidence of objective response and his clinical status had continued to worsen. With evidence of the BRCA 2 mutation, his treatment was then changed to a modified FOLFOX chemotherapy regimen. He began cycle 1 on 12/30/2019. It caused multiple toxicities, severe enough that we opted not to attempt any further chemotherapy. However, due to the presence of the BRCA2 mutation, we were able to get him approved for an off label trial of therapy with olaparib, which he started on 02/12/2020 at a standard dosage of 300 mg twice daily. He is seen for a follow-up visit. He has been feeling better since stopping the chemotherapy and transitioning to the PARP inhibitor. His energy level has improved, least of point that he is able to ambulate with a walker. His ECOG score is 2. Appetite is still somewhat variable, but improved. His weight is stable. He does not have fever or night sweats. He has had no mouth sores. He does not complain of shortness of breath, cough, or chest pain. He does have abdominal pain and lower back pain, but that is being managed adequately with medication. He is not having nausea. His bowels have been a little loose, but he does not report having any actual diarrhea. Bladder function has been okay. He does not complain of headache or dizziness. He still has a little numbness in his fingertips. Medications: CeleXA 1 Tablet (of 20 mg) Oral daily, Fish Oil 1 Capsule Oral daily, glipiZIDE XL 1 Tablet (of 5 mg) Tablet SR 24 HR Oral daily, Januvia 1 Tablet (of 100 mg) Oral daily, LORazepam 2 Tablet (of 1 mg) Oral at bedtime, Morphine Sulfate 1 Tablet (of 30 mg) Oral q 4 hours PRN, Multivitamin Adult 1 Tablet Oral daily, Pantoprazole Sodium 1 Tablet (of 40 mg) Tablet, enteric coated Oral daily, Tamsulosin HCl 1 Capsule (of 0.4 mg) Oral daily, traMADol HCl 1 Tablet (of 50 mg) Oral q 6 hours PRN Allergies: No Known Allergies. Vital Signs: Performed on Mar 10, 2020 09:30 Height - 77.50 in Weight - 205.8 lbs (LOW) BSA - 2.27 sq.m BMI - 24.09 Temperature - 97.8 F (LOW) Pulse - 71 /min Respiration - 16 /min BP - 99/65 mm(hg) O2 Sat - 97 % Pain - 0 Physical Examination: Constitutional - He appears somewhat weak generally, Eyes - Sclerae nonicteric. Conjunctivae clear, ENMT - No lesions noted in the oral cavity, Hematologic/Lymphatic - No cervical, clavicular, or axillary adenopathy, Respiratory - Lungs are clear with good air movement bilaterally, Cardiovascular - Heart rhythm is regular. There is no murmur, gallop, or rub noted, Abdomen - Soft. Liver and spleen are not enlarged. There is no abdominal mass or ascites noted and there is no inguinal adenopathy, Extremities - No edema, Neurologic - No focal neurologic deficits noted. Lab/Imaging: Test performed on Mar 10, 2020 08:08 Sodium 134 mmol/L Potassium 4.2 mmol/L Chloride 99 mmol/L CO2 26 mmol/L Anion Gap 13.2 BUN 12 mg/dL Creatinine 0.9 mg/dL Cr Clearance (Est) 109.49 mL/min eGFR 85.0 mL/min Glucose 127 mg/dL Osmolality - Calculated 279 mOsm/kg Calcium 9.5 mg/dL Protein, Total 6.9 g/dL Albumin 3.8 g/dL Globulin 3.1 g/dL Bilirubin, Total 0.3 mg/dL ALT (SGPT) 10 U/L AST (SGOT) 13 U/L Alkaline Phosphatase 116 IU/L WBC 3.7 10 3/uL RBC 3.58 10 6/uL HGB 10.8 g/dL HCT 33.4 % MCV 93.3 fL MCH 30.2 pg MCHC 32.3 g/dL RDW 14.8 % Platelet Count 171 10 3/cmm MPV 9.4 fL Neutrophils 2.53 10 3/uL Lymphocytes 0.6 10 3/uL Monocytes 0.3 10 3/uL Eosinophils 0.2 10 3/uL Basophils 0.1 10 3/uL Neutrophil % 67.7 % Lymphocyte % 16.6 % Monocyte % 8.0 % Eosinophil % 6.1 % Basophils % 1.3 % NRBC % 0 % CA 19-9 14.19 U/mL CEA 94.1 ng/mL Historic Problem List: 1. Adenocarcinoma involving the body of the pancreas, by clinical evaluation stage IV (T2, N2, M1), including extensive abdominal/retroperitoneal lymphadenopathy and metastatic involvement in the liver. By next generation sequencing, his tumor was found to harbor a BRCA2 mutation. 2. Hypertension. 3. Type 2 diabetes. 4. Hyperlipidemia. 5. GERD. 6. Anxiety/depression. Problems Addressed with this Encounter and Plan: 1. Adenocarcinoma involving the body of the pancreas, by clinical evaluation stage IV (T2, N2, M1), including extensive abdominal/retroperitoneal lymphadenopathy and metastatic involvement in the liver. By next generation sequencing, his tumor was found to harbor a BRCA2 mutation. He failed initial chemotherapy with gemcitabine/Abraxane and he developed severe toxicity with modified FOLFOX chemotherapy. In the presence of a BRCA2 mutation, he was approved for a trial of off label use of olaparib, which he started on 02/12/2020 at a standard dosage of 300 mg twice daily. Thus far he has been able to tolerate it with no apparent adverse effects. He has not yet been evaluated for objective response, but he has been showing improvement clinically since he stopped chemotherapy. As such, he will continue olaparib at 300 mg twice daily. As he has poor performance status and the medication does have potential for significant toxicities, he will continue to require close monitoring. He will be seen for a follow-up visit in 1 month, or sooner as needed. 2. He has significant cancer related pain. At the present time it is being managed adequately with immediate release morphine, which he will continue at the same dosage. 3. Type 2 diabetes. Blood sugars currently are being controlled on combination therapy with Metformin, glipizide, and Januvia. 4. Anxiety/depression. At the present time it is being managed adequately with citalopram. Signed By: Nakul Ventura M.D. <<Signature on File>>
[2020-03-28 13:01] LABS: Basophils # 0.1 10^3/uL (0.0-0.1); Basophils % 1.5 %; Eosinophils # 0.2 10^3/uL (0.0-0.8); Hemoglobin 10.8 g/dL (11.7-16.6); Lymphocytes # 0.5 10^3/uL (0.8-4.8); Mean Corpuscular HGB Conc 32.7 g/dL (30.0-36.0); Mean Corpuscular Hemoglobin 29.6 pg (28.0-34.0); Mean Corpuscular Volume 90.4 fL (80-94); Monocytes # 0.2 10^3/uL (0.2-0.9); Neutrophils # 2.44 10^3/uL (1.8-7.7); Neutrophils % 71.5 %; Nucleated Red Blood Cells % 0 %; Platelet Count 177 10^3/cmm (130-400); Red Blood Count 3.65 10^6/uL (4.1-5.3); Red Cell Distribution Width 14.4 % (12.1-15.1); White Blood Count 3.4 10^3/uL (4.0-10.0)
[2020-03-28 13:48] LABS: Carcinoembryonic Antigen 168.1 ng/mL (0.0-4.7)
[2020-03-28 14:00] LABS: Alanine Aminotransferase 10 U/L (0-41); Albumin Level 3.6 g/dL (3.5-5.2); Alkaline Phosphatase 120 IU/L (40-130); Anion Gap 12.9 (5-19); Aspartate Amino Transferase 14 U/L (0-40); Blood Urea Nitrogen 9 mg/dL (8-23); Calcium 9.6 mg/dL (8.5-10.5); Carbon Dioxide 28 mmol/L (22-29); Chloride 99 mmol/L (98-107); Globulin 3.1 g/dL (1.3-4.6); Glomerular Filtration Rate 97.3 mL/min (90-130); Glucose 129 mg/dL (65-115); Osmolality Calculated 282 mOsm/kg (285-295); Potassium 3.9 mmol/L (3.5-5.1); Sodium 136 mmol/L (136-145); Total Bilirubin 0.3 mg/dL (0.15-1.2); Total Protein 6.7 g/dL (6.6-8.7)
--- NOTE | 2020-03-29 12:41 | ONC FU_ITS ---
Dr. Ventura Patient Follow-Up Note Patient: Leonidas Swenson Unit #: [id number]: 1955 Dicatated By: Nakul Ventura M.D.Date of Visit:Mar 29, 2020 Onc Med Follow-up/Prog Note Chief Complaint: Pancreatic cancer. History of Present Illness: This is a 65 year-old man who had been seen initially with celiac axis, aortocaval, and retroperitoneal lymphadenopathy. He ultimately was confirmed to have metastatic pancreatic adenocarcinoma, and on next generation sequencing his tumor was found to harbor a BRCA2 mutation. On 07/25/2019 he presented to the emergency room with abdominal pain. He had experience significant weight loss. His CT abdomen/pelvis showed the pancreatic tail to be either absent or very atrophic. Pancreatic body was noted to be mildly hypodense, but the appearance was nonspecific. Prominent lymph nodes were noted, including a 2 x 1.4 cm peripancreatic lymph node as well as prominent retroperitoneal para-aortic lymph nodes. The lipase was normal. Further evaluation with cholangiopancreatography MRI on 08/06/2019 showed normal signal within the pancreas with mildly truncated distal pancreas, felt to be likely a normal variant. 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 The gallbladder showed no abnormal findings. He was seen in the ER again on 08/17/2019. CT abdomen/pelvis showed similar findings. Abdominal MRI on 08/31/2019 reported abnormal signal within the body and distal pancreas, but without evidence of enhancing mass. Again noted was aortocaval and periaortic adenopathy with the largest aortocaval node measuring 1.7 cm and a cluster of enlarged periaortic lymph nodes measuring 2.0 cm. An additional lymph node or other celiac axis measure 2.2 cm. MRI of the lumbar spine on 09/02/2019 showed degenerative changes at multiple levels, but no lytic bone disease or other evidence of malignancy. I had seen him initially on 09/07/2019. He then had further evaluation with PET/CT on 09/12/2019. It showed a 3.2 x 6.8 cm region of abnormal activity within the mid pancreas with SUV 7.0, consistent with primary pancreatic carcinoma. There was extensive FDG positive upper abdominal lymphadenopathy and there was an enlarged celiac lymph node measuring 2.9 cm with SUV 8.4, consistent with local metastatic disease. There is additional bilateral FDG avid lymph nodes, scattered FDG avid mesenteric lymph nodes, and FDG avid hepatic lesions, all consistent with metastatic disease. With those findings, he was referred to Dr. Deon Calderon at [facility]. He had further evaluation with EGD and upper abdominal EUS on 10/08/2019. The EGD did show some evidence of gastritis with negative gastric biopsy for helicobacter pylori. The upper EUS showed a 32.4 x 35.3 mm hypoechoic irregular mass in the body of the pancreas and a 24.8 x 25.5 mm hypoechoic ovoid celiac lymph node, both of which were evaluated with FNA biopsy. Pathology was positive for adenocarcinoma at both sites. On subsequent evaluation with next generation sequencing, his tumor was found to harbor a BRCA2 mutation. In October he began a trial of chemotherapy with gemcitabine/Abraxane. He tolerated it poorly, and it was stopped after his cycle 2-day 1 treatment, as he was showing no evidence of objective response and his clinical status had continued to worsen. With evidence of the BRCA 2 mutation, his treatment was then changed to a modified FOLFOX chemotherapy regimen. He began cycle 1 on 12/30/2019. It caused multiple toxicities, severe enough that we opted not to attempt any further chemotherapy. However, due to the presence of the BRCA2 mutation, we were able to get him approved for an off label trial of therapy with olaparib, which he started on 02/12/2020 at a standard dosage of 300 mg twice daily. He is seen for a follow-up visit. He has been able to continue taking the olaparib without significant adverse effects. However, he has not been feeling good. He has limited activity. ECOG score is 2. Appetite is poor and he has not been eating very much. He does not have fever or night sweats. He has been having a lot of stomach pain, typically last for 5 days. It starts hurting as soon as he eats or drinks. He also has pain in the lower back. He is unable to lie on his right side now because of the pain, and he also cannot lie on his back. He is not getting adequate relief with his pain medication, which has remained limited to MSIR, as he had poor tolerance for extended release morphine. His breathing is still pretty good. He does not complain of cough and he is not having chest pain. He also does not have nausea, and his bowel and bladder function remain adequate. He does not complain of headache. He occasionally has dizziness. He occasionally has numbness in his fingertips. Medications: CeleXA 1 Tablet (of 20 mg) Oral daily, Fish Oil 1 Capsule Oral daily, glipiZIDE XL 1 Tablet (of 5 mg) Tablet SR 24 HR Oral daily, Januvia 1 Tablet (of 100 mg) Oral daily, LORazepam 2 Tablet (of 1 mg) Oral at bedtime, Morphine Sulfate 1 Tablet (of 30 mg) Oral q 4 hours PRN, Multivitamin Adult 1 Tablet Oral daily, Pantoprazole Sodium 1 Tablet (of 40 mg) Tablet, enteric coated Oral daily, Tamsulosin HCl 1 Capsule (of 0.4 mg) Oral daily, traMADol HCl 1 Tablet (of 50 mg) Oral q 6 hours PRN Allergies: No Known Allergies. Vital Signs: Performed on Mar 29, 2020 08:33 Height - 77.50 in Weight - 203 lbs (LOW) BSA - 2.26 sq.m BMI - 23.76 Temperature - 97.3 F (LOW) Pulse - 18 /min (LOW) Respiration - 63 /min (HIGH) BP - 123/77 mm(hg) O2 Sat - 97 % Pain - 0 Physical Examination: Constitutional - He appears generally weak, Eyes - Sclerae nonicteric. Conjunctivae clear, ENMT - No lesions noted in the oral cavity, Hematologic/Lymphatic - No cervical, clavicular, or axillary adenopathy, Respiratory - Lungs are clear, Cardiovascular - Heart rhythm is regular. There is no murmur, gallop, or rub noted, Abdomen - Soft. There is no signficant abdominal tenderness. Liver and spleen are not enlarged. There is no abdominal mass or ascites noted and there is no inguinal adenopathy, Extremities - No edema, Neurologic - No focal neurologic deficits noted. Lab/Imaging: CBC shows hemoglobin 10.8 g, white blood cell count 3400, and platelet count 177,000. Comprehensive metabolic profile is unremarkable. His CEA level has increased significantly, now to 168.1 ng/mL. Problem List: 1. Adenocarcinoma involving the body of the pancreas, by clinical evaluation stage IV (T2, N2, M1), including extensive abdominal/retroperitoneal lymphadenopathy and metastatic involvement in the liver. By next generation sequencing, his tumor was found to harbor a BRCA2 mutation. 2. Hypertension. 3. Type 2 diabetes. 4. Hyperlipidemia. 5. GERD. 6. Anxiety/depression. Problems Addressed with this Encounter and Plan: 1. Adenocarcinoma involving the body of the pancreas, by clinical evaluation stage IV (T2, N2, M1), including extensive abdominal/retroperitoneal lymphadenopathy and metastatic involvement in the liver. By next generation sequencing, his tumor was found to harbor a BRCA2 mutation. He failed initial chemotherapy with gemcitabine/Abraxane and he developed severe toxicity with modified FOLFOX chemotherapy. In the presence of a BRCA2 mutation, he was approved for a trial of off label use of olaparib, which he started on 02/12/2020 at a standard dosage of 300 mg twice daily. During subsequent follow-up he has tolerated the olaparib without significant adverse effects. However, there has been continued increase in his CEA level and worsening of his cancer related symptoms, so that it is quite clear that he is showing further disease progression. We discussed the fact that his current treatment is not effective and unfortunately we really do not have any other treatment options available. As such, he will now be transitioned to symptomatic/supportive care. We discussed hospice referral, and he is agreeable to that. The most significant issue with his symptomatic management will be the pain control. I will now have him start fentanyl at 25 mcg/h, and that dosage can be escalated as tolerated. For now he will continue the MSIR, but he has been having some [employer] side effects with it, and if those continue to worsen I will likely change that to an immediate release oxycodone preparation. He is aware that his overall prognosis now is very poor. 2. He continues to have significant cancer related pain. The plan for that is as noted above. 3. Type 2 diabetes. Blood sugars remain adequately controlled on combination therapy with Metformin, glipizide, and Januvia. 4. Anxiety/depression. At the present time it is being managed adequately with citalopram. Signed By: Nakul Ventura M.D. <<Signature on File>>
== END 2020-04-03 23:59 | disposition home or self-care (01) ==
LOC: ONCMED 05:39
PROVIDERS: PCP Family Medicine; Visit Provider Internal Medicine Medical Oncology
DX: C25.1 Malignant neoplasm of body of pancreas (principal); C78.7 Secondary malignant neoplasm of liver and intrahepatic bile duct; D70.1 Agranulocytosis secondary to cancer chemotherapy; T45.1X5A Adverse effect of antineoplastic and immunosuppressive drugs, initial encounter; R59.0 Localized enlarged lymph nodes; I10 Essential (primary) hypertension; E11.9 Type 2 diabetes mellitus without complications; E78.5 Hyperlipidemia, unspecified; K21.9 Gastro-esophageal reflux disease without esophagitis; F41.9 Anxiety disorder, unspecified; F32.9 Major depressive disorder, single episode, unspecified; Z79.899 Other long term (current) drug therapy
CPT/HCPCS: 36591; 80053; 82378; 85025; 86301; 99215